=== PATIENT | male | born 1960 | race Caucasian/White ===

== ENCOUNTER → 2016-08-11 | Outpatient (CLI) | payer BC, OTHER ==
[~2016-08-11] MED LIST: AMOX500C PO; CARI350T20 PO; HYDR25T PO; NAPR500T2 PO; OMEP20CA3 PO; SUCR1TA PO; VIAG100T PO; ZOLP12.515 PO
[2016-08-11 12:56] LABS: MEAN CORPUSCULAR HEMOGLOBIN 27.6 pg (27.0-33.0); MEAN CORPUSCULAR HGB CONC 33.9 g/dl (32.0-36.5); MEAN CORPUSCULAR VOLUME 81.5 fl (80.0-96.0); RED CELL DISTRIBUTION WIDTH 15.3 % (11.5-14.5)
[2016-08-11 13:59] LABS: ALBUMIN 4.1 GM/DL (3.2-5.2); ALBUMIN/GLOBULIN RATIO 1.28 (1.00-1.93); ALKALINE PHOSPHATASE 100 U/L (45-117); ALT/SGPT 36 U/L (12-78); ANION GAP 9 MEQ/L (8-16); AST/SGOT 24 U/L (15-37); BILIRUBIN,TOTAL 0.3 MG/DL (0.2-1.0); BLOOD UREA NITROGEN 19 MG/DL (7-18); CALCIUM LEVEL 8.5 MG/DL (8.5-10.1); CARBON DIOXIDE LEVEL 27 MEQ/L (21-32); CHLORIDE LEVEL 106 MEQ/L (98-107); CHOLESTEROL LEVEL 342 MG/DL (<200); CREATININE FOR GFR 1.19 MG/DL (0.70-1.30); GLOMERULAR FILTRATION RATE > 60.0 (>56); GLUCOSE, FASTING 93 MG/DL (70-105); POTASSIUM SERUM 4.1 MEQ/L (3.5-5.1); SODIUM LEVEL 142 MEQ/L (136-145); TOTAL PROTEIN 7.3 GM/DL (6.4-8.2); TRIGLYCERIDES LEVEL 309 MG/DL (<150)
== END ==
LOC: M LAB 12:24
PROVIDERS: ATTEND Family Medicine
DX: I10 Essential (primary) hypertension (principal); D64.9 Anemia, unspecified; R53.83 Other fatigue

== ENCOUNTER 2016-11-01 18:43 | Emergency (ER) | payer BC, OTHER ==
[~2016-11-01] VITALS: Ht 177.8 cm; Wt 77.1 kg
[2016-11-01] MEDS ORDERED: CIPR500T3 (18:54)
[2016-11-01] MEDS ORDERED: PERCOCET 5MG/325MG TAB PO ONE ×2 (19:15→20:15)
--- NOTE | 2016-11-01 20:09 | REP ---
Clinical: Trauma. Technique: Axial noncontrast images through the maxillofacial region with coronal and sagittal re-formations. Findings: There is a depressed comminuted fracture involving the right zygomatic arch with overlying soft tissue traumatic infiltration. There is a subtle nondisplaced vertical fracture through the left mandibular ramus best identified on sagittal series 207 image 14 and confirmed on axial images. Subtle bilateral nasal bone fractures are appreciated and of indeterminate age. The sinuses and mastoid air cells are well aerated and clear. Despite the subtle nondisplaced fracture involving the left mandibular ramus, the temporomandibular joints are symmetric and intact. The remainder of the osseous structures appear normal. The bilateral orbits including globes and intraconal contents are symmetric and normal. Impression: 1. Depressed comminuted fracture of the right zygomatic arch as well as subtle, linear nondisplaced fracture involving the left mandibular ramus. 2. Fractures of the bilateral nasal bones are of indeterminate age and require correlation. Signed by Rafael Head MD 11/01/2016 08:00 P
[2016-11-01] MEDS ORDERED: PERC5TAB6 PO (20:10)
[2016-11-01 20:15] VITALS: BP 129/82
== END 2016-11-01 20:10 | disposition home or self-care (01) ==
LOC: M ED 19:36
DX: S02.40EA Zygomatic fracture, right side, initial encounter for closed fracture (principal); S02.2XXA Fracture of nasal bones, initial encounter for closed fracture; S02.609A Fracture of mandible, unspecified, initial encounter for closed fracture; W22.8XXA Striking against or struck by other objects, initial encounter; Y92.59 Other trade areas as the place of occurrence of the external cause; Y93.89 Activity, other specified; Y99.0 Civilian activity done for income or pay; Z79.899 Other long term (current) drug therapy; Z88.1 Allergy status to other antibiotic agents

== ENCOUNTER 2016-11-05 16:55 | Emergency (ER) | payer BC, OTHER ==
[~2016-11-05] VITALS: Ht 177.8 cm; Wt 79.4 kg
[2016-11-05 16:55] VITALS: BP 114/97
[~2016-11-05 16:55] MED LIST changes: +CIPR500T3; +PERC5TAB6 PO
== END 2016-11-05 17:20 | disposition left against medical advice (07) ==
LOC: M ED 17:16
DX: Z53.21 Procedure and treatment not carried out due to patient leaving prior to being seen by health care provider (principal)

== ENCOUNTER → 2016-12-04 | Outpatient (CLI) | payer BC, OTHER | LOC: M LAB 10:56 | PROVIDERS: ATTEND Family Medicine | DX: E29.1 Testicular hypofunction (principal) ==

== ENCOUNTER 2017-02-16 21:22 | Emergency (ER) | payer BC, OTHER ==
[~2017-02-16 21:22] MED LIST changes: +CARI350T PO; -CARI350T20 PO; +HYDR-3363 PO; -HYDR25T PO; -NAPR500T2 PO; +NAPR500T3 PO; +PERC5TAB12 PO; -PERC5TAB6 PO
[2017-02-16 21:30] VITALS: BP 145/72
== END 2017-02-16 22:13 | disposition home or self-care (01) ==
LOC: M ED 21:22
DX: F10.129 Alcohol abuse with intoxication, unspecified (principal)

== ENCOUNTER → 2017-08-21 | Outpatient (CLI) | payer BC, OTHER ==
[2017-08-21 12:58] LABS: HEMATOCRIT 46.7 % (42.0-52.0); MEAN CORPUSCULAR HEMOGLOBIN 27.5 pg (27.0-33.0); MEAN CORPUSCULAR HGB CONC 32.1 g/dl (32.0-36.5); MEAN CORPUSCULAR VOLUME 85.5 fl (80.0-96.0); PLATELET COUNT, AUTOMATED 271 10^3/uL (150-450); RED BLOOD COUNT 5.46 10^6/uL (4.30-6.10); RED CELL DISTRIBUTION WIDTH 14.8 % (11.5-14.5)
[2017-08-21 13:35] LABS: TESTOSTERONE 369 NG/DL (241-827)
[2017-08-21 13:36] LABS: VITAMIN B12 LEVEL 505 PG/ML (247-911)
[2017-08-21 13:38] LABS: ESTIMATED AVERAGE GLUCOSE 120 MG/DL (60-110); HEMOGLOBIN A1c 5.8 %
[2017-08-21 13:43] LABS: ALBUMIN 4.4 GM/DL (3.2-5.2); ALBUMIN/GLOBULIN RATIO 1.26 (1.00-1.93); ALKALINE PHOSPHATASE 88 U/L (45-117); ALT/SGPT 34 U/L (12-78); ANION GAP 11 MEQ/L (8-16); AST/SGOT 32 U/L (7-37); BILIRUBIN,TOTAL 0.4 MG/DL (0.2-1.0); BLOOD UREA NITROGEN 19 MG/DL (7-18); CALCIUM LEVEL 8.8 MG/DL (8.5-10.1); CARBON DIOXIDE LEVEL 24 MEQ/L (21-32); CHLORIDE LEVEL 107 MEQ/L (98-107); CHOLESTEROL LEVEL 366 MG/DL (<200); CHOLESTEROL RISK RATIO 7.956 (<5); CREATININE FOR GFR 1.17 MG/DL (0.70-1.30); GLOMERULAR FILTRATION RATE > 60.0 (>56); GLUCOSE, FASTING 99 MG/DL (70-100); HDL CHOLESTEROL 46 MG/DL (>40); IRON (FE) 103 UG/DL (65-175); NON-HDL-C 320 MG/DL; PERCENT SATURATION 23.3 % (19.7-50.0); POTASSIUM SERUM 4.5 MEQ/L (3.5-5.1); PROSTATIC SPECIFIC AG MONITOR 1.02 NG/ML (< 4.0); SODIUM LEVEL 142 MEQ/L (136-145); TOTAL IRON BINDING CAPACITY 443 UG/DL (250-450); TOTAL PROTEIN 7.9 GM/DL (6.4-8.2); TRIGLYCERIDES LEVEL 533 MG/DL (<150)
== END ==
LOC: M LAB 12:34
DX: I10 Essential (primary) hypertension (principal)

== ENCOUNTER → 2017-08-24 | Outpatient (REF) | payer BC, OTHER | LOC: M LABNEURO 14:38 | DX: Z86.73 Personal history of transient ischemic attack (TIA), and cerebral infarction without residual deficits (principal) | CPT/HCPCS: 36415 ==

== ENCOUNTER → 2018-02-19 | Outpatient (CLI) | payer OTHER | LOC: M OUTALCOH 07:52 | DX: Z03.89 Encounter for observation for other suspected diseases and conditions ruled out (principal) ==

== ENCOUNTER 2018-03-11 15:12 | Outpatient (RCR) | payer OTHER | END 2018-03-14 | LOC: M OUTALCOH 15:12 | DX: Z03.89 Encounter for observation for other suspected diseases and conditions ruled out (principal) ==

== ENCOUNTER 2018-06-17 10:30 | Emergency (ER) | payer BC, OTHER ==
[~2018-06-17] VITALS: Ht 175.3 cm; Wt 90.9 kg
[~2018-06-17 10:30] MED LIST changes: +CARI1TAB7 PO; -CARI350T PO; +NAPR-885 PO; -NAPR500T3 PO
[2018-06-17] MEDS ORDERED: AMOX500T (10:50)
[2018-06-17] MEDS ORDERED: TRAM50TA2 (10:50)
[2018-06-17] MEDS ORDERED: SIMV20TA2 (10:50)
[2018-06-17] MEDS ORDERED: SERT-155 (10:50)
[2018-06-17] MEDS ORDERED: KETOROLAC 60 MG/2 ML VIAL (J1885) IM ONE (11:00)
[2018-06-17] MEDS ORDERED: NAPR-50 PO (12:37)
[2018-06-17 12:48] VITALS: BP 137/91
== END 2018-06-17 12:54 | disposition home or self-care (01) ==
LOC: M ED 10:30 → EDBD 10:30 → M ED 12:54
DX: S39.012A Strain of muscle, fascia and tendon of lower back, initial encounter (principal); W10.9XXA Fall (on) (from) unspecified stairs and steps, initial encounter; Y92.9 Unspecified place or not applicable; Y93.9 Activity, unspecified; Y99.9 Unspecified external cause status; K21.9 Gastro-esophageal reflux disease without esophagitis; E78.5 Hyperlipidemia, unspecified; F10.10 Alcohol abuse, uncomplicated; F19.10 Other psychoactive substance abuse, uncomplicated; Z72.0 Tobacco use; Z79.899 Other long term (current) drug therapy; Z88.1 Allergy status to other antibiotic agents
CPT/HCPCS: 96372; 99284; J1885

== ENCOUNTER 2018-12-18 18:16 | Emergency (ER) | payer BC, OTHER ==
[~2018-12-18] VITALS: Ht 177.8 cm; Wt 81.8 kg
[~2018-12-18 18:16] MED LIST changes: +AMOX500T; +BACT800T5 PO; +NAPR-837 PO; -OMEP20CA3 PO; +OMEP20CA4 PO; +SERT-155; +SIMV20TA2; +TRAM50TA2
[2018-12-18 19:33] VITALS: BP 130/79
== END 2018-12-18 19:35 | disposition home or self-care (01) ==
LOC: M ED 18:16
DX: Z48.89 Encounter for other specified surgical aftercare (principal); K21.9 Gastro-esophageal reflux disease without esophagitis; Z79.899 Other long term (current) drug therapy; Z88.1 Allergy status to other antibiotic agents

== ENCOUNTER 2019-05-20 04:55 | Inpatient (IN) | payer BC, OTHER ==
[~2019-05-20] VITALS: Ht 175.3 cm; Wt 80.0 kg
[~2019-05-20 04:55] MED LIST changes: +OMEP-172 PO; -OMEP20CA4 PO; -SERT-155; +SERT50TA29; -SIMV20TA2; +SIMV20TA22
[2019-05-20] MEDS ORDERED: TRAZ-163 PO (05:23)
[2019-05-20] MEDS ORDERED: SILD100T PO (05:23)
[2019-05-20] MEDS ORDERED: HYDR-3363 PO (05:23)
[2019-05-20] MEDS ORDERED: SUCR1TAB56 PO (05:23)
--- NOTE | 2019-05-20 05:52 | ECGEPIP ---
[facility] - ED Test Date: 2019-05-20 Pat Name: JOY MARTELL Department: Room: - Gender: Male Skid Wrapper: : 1960 Requested By: ASH Corona Order Number: [id number] Reading MD: Willian Mckeon Measurements Intervals [place] Rate: 110 P: 39 RI: 158 QRS: -21 QRSD: 100 T: 33 QT: 268 QTc: 364 Interpretive Statements SINUS TACHYCARDIA BORDERLINE LEFT AXIS DEVIATION NONSPECIFIC T-WAVE ABNORMALITY RATE CHANGE COMPARED TO 08/21/17 Electronically Signed on 05-20-2019 5:52:30 EST by Willian Mckeon
[2019-05-20 05:54] LABS: BASO # 0.1 10^3/uL (0.0-0.2); BASO % 0.5 % (0.0-1.0); EOS % 0.3 % (0.0-3.0); HEMATOCRIT 42.8 % (42.0-52.0); HEMOGLOBIN 13.3 g/dl (13.5-17.5); LYMPH # 1.2 10^3/uL (1.5-5.0); LYMPH % 10.6 % (24.0-44.0); MEAN CORPUSCULAR HEMOGLOBIN 24.3 pg (27.0-33.0); MEAN CORPUSCULAR HGB CONC 31.1 g/dl (32.0-36.5); MEAN CORPUSCULAR VOLUME 78.1 fl (80.0-96.0); MONO # 0.7 10^3/uL (0.0-0.8); MONO % 6.3 % (0.0-5.0); NEUTROPHILS # 9.4 10^3/uL (1.5-8.5); NEUTROPHILS % 81.4 % (36.0-66.0); PLATELET COUNT, AUTOMATED 253 10^3/uL (150-450); RED BLOOD COUNT 5.48 10^6/uL (4.30-6.10); WHITE BLOOD COUNT 11.5 10^3/uL (4.0-10.0)
[2019-05-20 06:36] LABS: ALBUMIN 4.5 GM/DL (3.2-5.2); ALT/SGPT 26 U/L (12-78); BILIRUBIN,DIRECT 0.2 MG/DL (0.0-0.2); BILIRUBIN,TOTAL 0.6 MG/DL (0.2-1.0); BLOOD UREA NITROGEN 30 MG/DL (7-18); CALCIUM LEVEL 8.7 MG/DL (8.5-10.1); CARBON DIOXIDE LEVEL 18 MEQ/L (21-32); CHLORIDE LEVEL 107 MEQ/L (98-107); CK-MB VALUE MASS 11.1 NG/ML (<3.6); CPK CREATINE PHOSPHOKINASE 2045 U/L (39-308); GLOMERULAR FILTRATION RATE 38.8 (>56); GLUCOSE, FASTING 88 MG/DL (70-100); MB/CK RELATIVE INDEX 0.54 (< OR =4); POTASSIUM SERUM 3.2 MEQ/L (3.5-5.1); SODIUM LEVEL 140 MEQ/L (136-145); TOTAL PROTEIN 7.8 GM/DL (6.4-8.2); TROPONIN I < 0.02 NG/ML (< 0.10)
--- NOTE | 2019-05-20 06:50 | REPVR ---
PROCEDURE INFORMATION: Exam: CT Head Without Contrast Exam date and time: 05/20/2019 6:21 AM Age: 58 years old Clinical history: Altered mental status/memory loss TECHNIQUE: Imaging protocol: Computed tomography of the head without contrast. Radiation optimization: All CT scans at this facility use at least one of these dose optimization techniques: automated exposure control; mA and/or kV adjustment per patient size (includes targeted exams where dose is matched to clinical indication); or iterative reconstruction. COMPARISON: No relevant prior studies available. FINDINGS: Brain: There is mild, diffuse parenchymal volume loss. There is more prominent regional parenchymal volume loss in the right frontal lobe. There is low attenuation likely due to a previous infarct in the right caudate and internal capsule. There is low attenuation in the periventricular white matter in the right frontal lobe. There is focal parenchymal volume loss and low attenuation consistent with encephalomalacia in the anterior left frontal lobe. The cortical/white matter interfaces are preserved throughout the brain. Ventricles: The ventricular system demonstrates mild diffuse compensatory enlargement. There is asymmetric enlargement of the anterior horn and body of the right lateral ventricle consistent with ex vacuo dilation. Bones/joints: No acute fractures of the skull are identified. Hyperostosis frontalis is incidentally noted. Sinuses: The visualized paranasal sinuses are clear. Mastoid air cells: There is a trace of fluid in the right mastoid air cells. Left mastoid air cells are clear. Soft tissues: Unremarkable. IMPRESSION: 1. 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 2. Smaller area of encephalomalacia in the anterior left frontal lobe which may be related to prior infarct or injury. 3. No evidence of acute infarct or hemorrhage. Electronically signed by: Penny Bah On 05/20/2019 06:49:43 AM
[2019-05-20] MEDS ORDERED: NS 1,000 ML IV SCH (06:51)
[2019-05-20] MEDS ORDERED: BAYE325T12 PO (07:19)
[2019-05-20 07:43] LABS: ETHYL ALCOHOL (ETHANOL) < 0.003 % (0.000-0.010)
--- NOTE | 2019-05-20 08:33 | REP ---
Two-view chest: 05/20/2019. Indication: Altered mental status. Comparison: 08/21/2017. Findings: The lungs are clear. There is no pleural effusion or pneumothorax. Chronic right rib deformities are redemonstrated. The cardiomediastinal silhouette is unremarkable. Impression: No acute cardiopulmonary process. Electronically Signed by Herb Corey DO 05/20/2019 08:24 A
[2019-05-20 09:15] VITALS: BP 131/86
[2019-05-20] MEDS: HEPARIN SOD (PORCINE) 5000 UNITS/ML VIAL SC SCH ×3 (10:39→23:25)
[2019-05-20] MEDS: SUCRALFATE 1 GM TAB PO SCH ×2 (10:40→15:34)
[2019-05-20] MEDS: hydrOXYzine 25 MG TAB PO SCH ×2 (10:41→21:52)
[2019-05-20] MEDS: OMEPRAZOLE 20 MG CAP PO SCH ×2 (10:41→21:53)
[2019-05-20] MEDS: NS 1,000 ML IV SCH ×5 (10:41→23:57)
[2019-05-20] MEDS: POTASSIUM CHLORIDE 10 MEQ SR TABLET PO SCH (10:41)
[2019-05-20 15:27] VITALS: BP 138/89
[2019-05-20] MEDS ORDERED: LORazepam 2 MG TAB PO PRN (15:30)
[2019-05-20] MEDS: OXAZEPAM 10 MG CAP PO SCH ×2 (15:34→21:53)
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
[2019-05-20] MEDS: THIAMINE 100 MG TAB PO SCH (17:12)
[2019-05-20 17:20] LABS: MAGNESIUM LEVEL 1.8 MG/DL (1.8-2.4)
[2019-05-20 19:30] VITALS: BP 145/79
[2019-05-20 21:00] VITALS: BP 145/79
[2019-05-20 22:00] VITALS: BP 145/79
[2019-05-21 04:00] VITALS: BP 110/78
[2019-05-21] MEDS: OXAZEPAM 10 MG CAP PO SCH (05:55)
[2019-05-21 06:00] VITALS: BP 145/79
[2019-05-21 06:02] LABS: HEMATOCRIT 38.2 % (42.0-52.0); HEMOGLOBIN 11.5 g/dl (13.5-17.5); MEAN CORPUSCULAR HEMOGLOBIN 24.1 pg (27.0-33.0); MEAN CORPUSCULAR HGB CONC 30.1 g/dl (32.0-36.5); MEAN CORPUSCULAR VOLUME 80.1 fl (80.0-96.0); PLATELET COUNT, AUTOMATED 204 10^3/uL (150-450); RED BLOOD COUNT 4.77 10^6/uL (4.30-6.10); WHITE BLOOD COUNT 4.6 10^3/uL (4.0-10.0)
[2019-05-21 06:14] LABS: INR 1.12; PROTHROMBIN TIME 14.1 SECONDS (11.8-14.0)
[2019-05-21 06:24] LABS: BLOOD UREA NITROGEN 19 MG/DL (7-18); CARBON DIOXIDE LEVEL 23 MEQ/L (21-32); CHLORIDE LEVEL 115 MEQ/L (98-107); GLOMERULAR FILTRATION RATE > 60.0 (>56); GLUCOSE, FASTING 99 MG/DL (70-100); POTASSIUM SERUM 3.8 MEQ/L (3.5-5.1); SODIUM LEVEL 144 MEQ/L (136-145)
[2019-05-21 07:21] LABS: CPK CREATINE PHOSPHOKINASE 945 U/L (39-308)
[2019-05-21 08:00] VITALS: BP 145/79
[2019-05-21] MEDS: hydrOXYzine 25 MG TAB PO SCH ×2 (09:46→20:48)
[2019-05-21] MEDS: NS 1,000 ML IV SCH (09:46)
[2019-05-21] MEDS: MULTIVITAMINS/MINERALS THERAP 1 TAB PO SCH (09:46)
[2019-05-21] MEDS: POTASSIUM CHLORIDE 10 MEQ SR TABLET PO SCH (09:46)
[2019-05-21] MEDS: SUCRALFATE 1 GM TAB PO SCH ×3 (09:46→17:09)
[2019-05-21] MEDS: THIAMINE 100 MG TAB PO SCH ×2 (09:46→20:48)
[2019-05-21] MEDS: OMEPRAZOLE 20 MG CAP PO SCH ×2 (09:47→20:48)
[2019-05-21] MEDS: FOLIC ACID 1 MG TAB PO SCH (09:47)
[2019-05-21] MEDS: HEPARIN SOD (PORCINE) 5000 UNITS/ML VIAL SC SCH ×2 (09:47→17:09)
[2019-05-21 14:00] VITALS: BP_SYST 114; BP_SYST 138; BP_DIAS 61; BP_DIAS 94
[2019-05-21] MEDS: ACETAMINOPHEN TAB 650MG DOSE (2X325MG) PO PRN ×2 (17:09→20:48)
[2019-05-21] MEDS ORDERED: OXAZEPAM 10 MG CAP PO SCH (18:00)
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
[2019-05-21 22:00] VITALS: BP_SYST 135; BP_SYST 158; BP_DIAS 88; BP_DIAS 90
[2019-05-22] MEDS: HEPARIN SOD (PORCINE) 5000 UNITS/ML VIAL SC SCH ×4 (00:34→23:33)
[2019-05-22 06:00] VITALS: BP 132/91
[2019-05-22] MEDS: SUCRALFATE 1 GM TAB PO SCH ×3 (07:38→16:19)
[2019-05-22] MEDS: FOLIC ACID 1 MG TAB PO SCH (09:04)
[2019-05-22] MEDS: OMEPRAZOLE 20 MG CAP PO SCH ×2 (09:05→21:17)
[2019-05-22] MEDS: hydrOXYzine 25 MG TAB PO SCH ×2 (09:05→21:17)
[2019-05-22] MEDS: POTASSIUM CHLORIDE 10 MEQ SR TABLET PO SCH (09:05)
[2019-05-22] MEDS: MULTIVITAMINS/MINERALS THERAP 1 TAB PO SCH (09:05)
[2019-05-22] MEDS: THIAMINE 100 MG TAB PO SCH ×2 (09:05→21:17)
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
[2019-05-22 14:00] VITALS: BP 157/89
[2019-05-22 22:00] VITALS: BP 151/88
[2019-05-22] MEDS: traZODone 50 MG TAB PO PRN (23:33)
[2019-05-23 06:00] VITALS: BP 143/90
[2019-05-23] MEDS: SUCRALFATE 1 GM TAB PO SCH ×3 (06:59→16:15)
[2019-05-23] MEDS: HEPARIN SOD (PORCINE) 5000 UNITS/ML VIAL SC SCH ×3 (06:59→22:46)
[2019-05-23] MEDS: OMEPRAZOLE 20 MG CAP PO SCH ×2 (09:04→21:47)
[2019-05-23] MEDS: POTASSIUM CHLORIDE 10 MEQ SR TABLET PO SCH (09:05)
[2019-05-23] MEDS: MULTIVITAMINS/MINERALS THERAP 1 TAB PO SCH (09:05)
[2019-05-23] MEDS: THIAMINE 100 MG TAB PO SCH (09:05)
[2019-05-23] MEDS: FOLIC ACID 1 MG TAB PO SCH (09:05)
[2019-05-23] MEDS: hydrOXYzine 25 MG TAB PO SCH ×2 (09:05→21:47)
--- NOTE | 2019-05-23 11:55 | REP ---
Pelvis bilateral hip study: Five views. History: Right hip pain with limping. Findings: AP view of the pelvis demonstrate an intact bony pelvic ring. No pelvic or sacral fracture is seen. SI joints and symphysis pubis are unremarkable. Hip joint spaces are preserved. There is mild sclerosis involving the acetabular margins bilaterally consistent with early osteoarthritis. There is periarticular soft-tissue calcification adjacent to the greater trochanter on the right. There is tendon insertion site spurring at the iliac crest on the right. Mild spurring is noted at the left hip joint. No fracture is seen. No bony destructive lesion. Impression: Peritrochanteric soft tissue calcification and tendon insertion site spurring at the iliac crest on the right side. Mild bilateral hip joint osteoarthritic spurring. No acute bony abnormality. Electronically Signed by Moise Monique MD 05/23/2019 12:17 P
[2019-05-23 13:07] LABS: VITAMIN B12 LEVEL 227 PG/ML (247-911)
[2019-05-23] MEDS ORDERED: CYAN100050 PO (13:57)
[2019-05-23 14:00] VITALS: BP 143/75
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
[2019-05-23] MEDS ORDERED: RAMELTEON 8 MG TAB (ROZEREM) PO SCH (21:00)
[2019-05-23] MEDS: traZODone 50 MG TAB PO PRN (21:49)
[2019-05-23 22:00] VITALS: BP_SYST 140; BP_SYST 80; BP_DIAS 140; BP_DIAS 78
[2019-05-24 06:00] VITALS: BP 137/76
[2019-05-24] MEDS: SUCRALFATE 1 GM TAB PO SCH (08:12)
[2019-05-24] MEDS: hydrOXYzine 25 MG TAB PO SCH (08:12)
[2019-05-24] MEDS: FOLIC ACID 1 MG TAB PO SCH (08:12)
[2019-05-24] MEDS: POTASSIUM CHLORIDE 10 MEQ SR TABLET PO SCH (08:13)
[2019-05-24] MEDS: MULTIVITAMINS/MINERALS THERAP 1 TAB PO SCH (08:13)
[2019-05-24] MEDS: OMEPRAZOLE 20 MG CAP PO SCH (08:13)
[2019-05-24] MEDS: HEPARIN SOD (PORCINE) 5000 UNITS/ML VIAL SC SCH (08:13)
--- NOTE | 2019-05-24 14:56 | DSES ---
DATE OF ADMISSION: 05/20/2019 DATE OF DISCHARGE: 05/24/2019 SOFTWARE BUSINESS ANALYST: Dr. Andrzej Varela, neurologist. PRIMARY DISCHARGE DIAGNOSES: 1. Acute encephalopathy and delirium in the background of traumatic brain injury. 2. B12 deficiency. 3. Chronic cognitive problems secondary to traumatic brain injury. 4. Gait instability. 5. Acute kidney injury secondary to rhabdomyolysis from a fall. 6. Hypokalemia. DISCHARGE MEDICATIONS: - B12 1000 mcg daily - aspirin 325 mg daily - hydroxyzine 25 twice a day - Prilosec 20 twice a day - Carafate 1 gram every morning - trazodone 200 nightly - sudanophil 100 as directed. HOSPITAL COURSE: This is a 58-year-old male who presented to the emergency room with confusion. Was seen walking the streets with no shoes, swimming truck and a fleece jacket looking for his dog, Isidro. Police was called. Patient was brought in to the emergency room for further evaluation. Patient was admitted for acute kidney injury, rhabdomyolysis and acute delirium in the background of traumatic brain injury. Neurologist Dr. Andrzej Varela was consulted and felt that the patient had transient global amnesia or acute delirium due to fall and injury. Patient denies any alcohol use confirmed with history with the social economist at [facility]. He has never drank alcohol or has had any recreational drug use. CT of the head showed a low attentuation in the right caudate internal capsule with no evidence for acute infarct or hemorrhage. Patient has areas of encephalomalacia and old infarct with possible chronic memory issues. Patient's mentation cleared up over the course of hospitalization. He was started on B12 replacement treatment. Hip x-rays due to fall showed bilateral osteoarthritis and right chronic trochanteric calcifications. As per his history, patient has trouble managing his money and people take advantage of him but sister will become involved in his outpatient care. Per physical therapy, a rolling walker is given due to gait instability and recurrent falls. Patient has resolution of his rhabdomyolysis with IV fluid hydration. PHYSICAL EXAMINATION: On discharge. Temperature 98.2, pulse 73, respiratory rate 19, blood pressure 137/79, 92% on room air. Generally, awake, alert, oriented to person and placed and time. Answering questions appropriately. Neck is supple with full range of motion. No cervical lymphadenopathy. Moist mucous membranes. Lungs are clear to auscultation. No wheezing, rales or rhonchi. Heart: S1, S2 sinus rhythm. Abdomen is soft, nontender. Nondistended. No pitting edema. Extremities: No cyanosis or clubbing. Neurologically awake, alert, oriented to person, place and time. Patient has fluent speech. Muscles are intact. Tongue midline. Motor function is 5/5 on four extremities. Normal [id number] testing. LABORATORY DATA: White count 4.6, hemoglobin 11.5, hematocrit 38, platelet count 204. Sodium 144, potassium 3.8, chloride 150, bicarbonate 23, BUN 19, creatinine 1.1, glucose 99, total CK 522, decreased from 2045 on admission. IMAGING STUDIES: CT of the head 05/20/2019: Low attentuation right caudate internal capsule. Regional volume loss low attenuation in the right matter right frontal lobe most likely due to an old infarct. No evidence of acute infarct or hemorrhage. Time spent on discharge: 30 minutes. [facility]
== END 2019-05-24 11:52 | disposition home or self-care (01) | DRG 52 ==
LOC: M ED 04:55 → M ED INP 07:12 → M MSPAV 09:17
PROVIDERS: ADMIT Internal Medicine; ATTEND General Practice
DX: G93.41 Metabolic encephalopathy (principal); N17.9 Acute kidney failure, unspecified; M62.82 Rhabdomyolysis; E55.9 Vitamin D deficiency, unspecified; E53.8 Deficiency of other specified B group vitamins; Z87.820 Personal history of traumatic brain injury; R26.9 Unspecified abnormalities of gait and mobility; E87.6 Hypokalemia; R29.6 Repeated falls; M16.0 Bilateral primary osteoarthritis of hip; R41.82 Altered mental status, unspecified; Z88.1 Allergy status to other antibiotic agents; Z79.82 Long term (current) use of aspirin; Z79.899 Other long term (current) drug therapy

== ENCOUNTER → 2019-08-17 | Outpatient (CLI) | payer BC, OTHER ==
[~2019-08-17] MED LIST changes: +BAYE325T12 PO; +CYAN100050 PO; -OMEP-172 PO; +OMEP1CAP73 PO; +SILD100T PO; +SUCR1TAB56 PO; +TRAZ-257 PO
[2019-08-17 11:19] LABS: HEMATOCRIT 43.4 % (42.0-52.0); HEMOGLOBIN 13.9 g/dl (13.5-17.5); MEAN CORPUSCULAR HEMOGLOBIN 25.6 pg (27.0-33.0); MEAN CORPUSCULAR VOLUME 79.8 fl (80.0-96.0); PLATELET COUNT, AUTOMATED 308 10^3/uL (150-450); RED BLOOD COUNT 5.44 10^6/uL (4.30-6.10); WHITE BLOOD COUNT 6.9 10^3/uL (4.0-10.0)
--- NOTE | 2019-08-17 11:57 | REP ---
CHEST, TWO VIEWS: Two views of the chest are performed. COMPARISON: 05/20/2019 There is no acute infiltrate or pulmonary edema. Heart is normal in size. Mediastinal silhouette is unremarkable and unchanged. Old compression deformity of L1 is unchanged. IMPRESSION: No acute pulmonary disease. Electronically Signed by Festus Jones MD 08/17/2019 04:08 P
[2019-08-17 12:00] LABS: ALBUMIN 4.5 GM/DL (3.2-5.2); ALT/SGPT 25 U/L (12-78); BILIRUBIN,TOTAL 0.4 MG/DL (0.2-1.0); BLOOD UREA NITROGEN 13 MG/DL (7-18); CALCIUM LEVEL 8.8 MG/DL (8.5-10.1); CARBON DIOXIDE LEVEL 25 MEQ/L (21-32); CHLORIDE LEVEL 106 MEQ/L (98-107); CHOLESTEROL LEVEL 323 MG/DL (<200); CHOLESTEROL RISK RATIO 11.962 (<5); CREATININE FOR GFR 1.53 MG/DL (0.70-1.30); GLOMERULAR FILTRATION RATE 49.8 (>56); GLUCOSE, FASTING 97 MG/DL (70-100); HDL CHOLESTEROL 27 MG/DL (>40); NON-HDL-C 296 MG/DL; POTASSIUM SERUM 3.8 MEQ/L (3.5-5.1); PROSTATIC SPECIFIC AG MONITOR 1.42 NG/ML (< 4.00); SODIUM LEVEL 138 MEQ/L (136-145); TESTOSTERONE 343 NG/DL (241-827); TOTAL PROTEIN 8.1 GM/DL (6.4-8.2); TRIGLYCERIDES LEVEL 665 MG/DL (<150)
--- NOTE | 2019-08-19 14:35 | ECGEPIP ---
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
== END ==
LOC: M LAB 10:12
PROVIDERS: ATTEND Family Medicine
DX: R53.83 Other fatigue (principal); I10 Essential (primary) hypertension

== ENCOUNTER 2019-12-19 20:11 | Emergency (ER) | payer BC, OTHER ==
[~2019-12-19] VITALS: Ht 177.8 cm; Wt 84.5 kg
[~2019-12-19 20:11] MED LIST changes: -ZOLP12.515 PO; +ZOLP12.518 PO
[2019-12-19] MEDS ORDERED: MAGIC MOUTHWASH SUSPENSION BTL SS STA (21:39)
[2019-12-19 22:07] LABS: BASO # 0.1 10^3/uL (0.0-0.2); BASO % 0.7 % (0.0-1.0); EOS # 0.2 10^3/uL (0.0-0.5); EOS % 1.8 % (0.0-3.0); HEMATOCRIT 44.1 % (42.0-52.0); HEMOGLOBIN 13.5 g/dl (13.5-17.5); LYMPH % 19.8 % (24.0-44.0); MEAN CORPUSCULAR HEMOGLOBIN 25.6 pg (27.0-33.0); MEAN CORPUSCULAR HGB CONC 30.6 g/dl (32.0-36.5); MEAN CORPUSCULAR VOLUME 83.5 fl (80.0-96.0); MONO # 0.6 10^3/uL (0.0-0.8); MONO % 6.3 % (0.0-5.0); NEUTROPHILS # 7.2 10^3/uL (1.5-8.5); NEUTROPHILS % 70.9 % (36.0-66.0); PLATELET COUNT, AUTOMATED 334 10^3/uL (150-450); RED BLOOD COUNT 5.28 10^6/uL (4.30-6.10); WHITE BLOOD COUNT 10.2 10^3/uL (4.0-10.0)
[2019-12-19] MEDS ORDERED: ISOVUE-370 76% 100ML VIAL As Ordered ONE (22:12)
--- NOTE | 2019-12-19 23:15 | REPVR ---
PROCEDURE INFORMATION: Exam: CT Neck With Contrast Exam date and time: 12/19/2019 10:40 PM Age: 59 years old Clinical indication: Neck pain; Additional info: R tonsillitis, dysphagia x 7 wks TECHNIQUE: Imaging protocol: Computed tomography images of the neck with intravenous contrast. Radiation optimization: All CT scans at this facility use at least one of these dose optimization techniques: automated exposure control; mA and/or kV adjustment per patient size (includes targeted exams where dose is matched to clinical indication); or iterative reconstruction. Contrast material: ISOVUE 370; Contrast volume: 75 ml; Contrast route: INTRAVENOUS (IV); COMPARISON: SR - CT Maxilofacial w/out contrast 11/01/2016 7:39:24 PM FINDINGS: Brain: There are non-specific foci of low attenuation in the periventricular white matter, which are likely the sequela of chronic small vessel ischemic injury and are similar in appearance compared to the prior CT on 11/01/2016. Ventricles: The ventricles are moderately dilated in proportion to the sulci, which is compatible with moderate generalized cerebral volume loss that is similar in appearance compared to the prior CT on 11/01/2016. Orbits: The globes and orbits are intact and normal in appearance. Mastoid air cells: Clear. Auditory system: There is a soft tissue opacity in the right external auditory canal, which likely represents cerumen. The middle ear spaces are clear. Sinuses: The sinuses are well-aerated. No air-fluid levels. Nasal cavity: Unremarkable. Nasopharynx: Unremarkable. Oral Cavity: Unremarkable. Dental: Several teeth are missing. There are dental caries involving the left lower 2nd and 3rd molars, left lower 1st premolar, and right lower 2nd premolar. Oropharynx: There is asymmetric enlargement and enhancement of the right palatine tonsil, which is compatible with right palatine tonsillitis. There are ill-defined areas of low attenuation within the right palatine tonsil, which are compatible with inflammatory changes. The left palatine tonsil is unremarkable. No or pharyngeal airway narrowing is noted. Hypopharynx: Unremarkable. Larynx: Unremarkable. Normal epiglottis. Retropharyngeal space: Unremarkable. No retropharyngeal fluid collection or edema. Submandibular/Parotid glands: Unremarkable. Glands are normal in size. Thyroid: There is a 5 mm heterogeneous nodule in the posterior aspect of the midpole of the left lobe of the thyroid gland (image 70 of the axial series 201) for which further evaluation is not necessary. No enlargement of the thyroid gland is noted. Lymph nodes: There is a 10 mm enlarged right level IIa cervical lymph node, which is likely reactive in nature. Trachea: Unremarkable. Lungs: The imaged lung apices are clear. The lungs were not fully imaged. Bones/joints: There is no acute fracture. There appears to be an old healed fracture deformity of the left mandibular ramus. There is an old healed fracture deformity of the right zygomatic arch. An old healed fracture deformity of the nasal bones is present. There is a 2 mm grade 1 anterolisthesis of C4 on C5 secondary to severe osteoarthritis of the right C4-C5 facet joint, which are similar findings compared to the prior CT on 11/01/2016. Degenerative changes are noted in the cervical spine. No bony destructive changes are noted. Vasculature: The vertebral arteries, common carotid arteries, internal carotid arteries, and external carotid arteries are patent and there is no dissection. The internal jugular veins are patent. There are atherosclerotic calcifications of the left carotid bulb. Soft tissues: Unremarkable. No soft tissue fluid collection. IMPRESSION: 1. Right palatine tonsillitis. No tonsillar or peritonsillar abscess. No airway narrowing. 2. Dental caries involving the left lower 2nd and 3rd molars, left lower 1st premolar, and right lower 2nd premolar. 3. Right level IIa cervical lymphadenopathy, which is likely reactive in nature. COMMENTS: Consistent with the [employer]'s Incidental Findings Committee white paper (J Am Mandy Radiol 2015): In patients aged 35 years and older with an incidental thyroid nodule equal to or greater than 1.[address], MRI or extrathyroidal US, further evaluation with dedicated thyroid US is recommended for patients with normal life expectancy and without comorbidities. For smaller nodules without suspicious features, no further evaluation or follow up is recommended. Electronically signed by: Moe Bray On 12/19/2019 23:14:45 PM
[2019-12-19 23:30] LABS: ERYTHROCYTE SEDIMENTATION RATE 46 mm/hr (0-20)
[2019-12-20] MEDS ORDERED: MAGICMW SSP (01:06)
[2019-12-20 01:35] VITALS: BP 136/86
== END 2019-12-20 01:37 | disposition home or self-care (01) ==
LOC: M ED 20:11
DX: J03.90 Acute tonsillitis, unspecified (principal); H61.21 Impacted cerumen, right ear; R59.1 Generalized enlarged lymph nodes; E78.5 Hyperlipidemia, unspecified; Z79.899 Other long term (current) drug therapy; Z79.82 Long term (current) use of aspirin; Z88.1 Allergy status to other antibiotic agents
CPT/HCPCS: 36415; 69210; 70491; 80047; 85025; 85652; 86140; 87880; 99284; Q9967

== ENCOUNTER 2020-01-29 01:41 | Emergency (ER) | payer BC, OTHER ==
[~2020-01-29 01:41] MED LIST changes: +MAGICMW SSP
[2020-01-29] MEDS ORDERED: AUGMENTIN 875 MG TAB As Ordered ONE (02:09)
[2020-01-29] MEDS ORDERED: AUGMENTIN 875 MG TAB ONE (02:09)
[2020-02-10] MEDS ORDERED: ACET1TAB16 (15:23)
[2020-02-10] MEDS ORDERED: AMOX500C PO (15:41)
[2020-03-30] MEDS ORDERED: ASPI81TA26 PO (08:51)
[2020-04-18] MEDS ORDERED: ONDA8TAB10 PO (10:03)
== END 2020-01-29 02:10 | disposition home or self-care (01) ==
LOC: M ED 01:41
DX: J02.9 Acute pharyngitis, unspecified (principal); Z79.899 Other long term (current) drug therapy

== ENCOUNTER → 2020-02-10 | Outpatient (CLI) | payer MEDICARE, BC, OTHER ==
[~2020-02-10] MED LIST changes: +ACET1TAB16; +ACET1TAB16 PO; +ASPI81TA26 PO; +DOXA2TAB3 PO; +PROC10TA4 PO; +SIMV20TA22 PO
[2020-02-10 13:37] LABS: HEMATOCRIT 36.6 % (42.0-52.0); HEMOGLOBIN 11.3 g/dl (13.5-17.5); MEAN CORPUSCULAR HEMOGLOBIN 24.2 pg (27.0-33.0); MEAN CORPUSCULAR HGB CONC 30.9 g/dl (32.0-36.5); MEAN CORPUSCULAR VOLUME 78.5 fl (80.0-96.0); PLATELET COUNT, AUTOMATED 404 10^3/uL (150-450); RED BLOOD COUNT 4.66 10^6/uL (4.30-6.10); WHITE BLOOD COUNT 11.1 10^3/uL (4.0-10.0)
[2020-02-10 13:48] LABS: INR 0.94; PROTHROMBIN TIME 12.8 SECONDS (11.8-14.0)
[2020-02-10 14:14] LABS: HEMOGLOBIN A1c 6.4 %
[2020-02-10 14:16] LABS: ALBUMIN 3.1 GM/DL (3.2-5.2); ALT/SGPT 19 U/L (12-78); BILIRUBIN,TOTAL 0.2 MG/DL (0.2-1.0); BLOOD UREA NITROGEN 14 MG/DL (7-18); CALCIUM LEVEL 9.4 MG/DL (8.8-10.2); CARBON DIOXIDE LEVEL 28 MEQ/L (21-32); CHLORIDE LEVEL 106 MEQ/L (98-107); CHOLESTEROL LEVEL 224 MG/DL (<200); CREATININE FOR GFR 1.08 MG/DL (0.70-1.30); GLOMERULAR FILTRATION RATE > 60.0 (>49); GLUCOSE, FASTING 102 MG/DL (70-100); HDL CHOLESTEROL 32 MG/DL (>40); LDL CHOLESTEROL 149 MG/DL (<100); NON-HDL-C 192 MG/DL; SODIUM LEVEL 140 MEQ/L (136-145); TESTOSTERONE 214 NG/DL (241-827); TRIGLYCERIDES LEVEL 213 MG/DL (<150)
--- NOTE | 2020-02-15 12:59 | REP ---
CHEST X-RAY: HISTORY: Preoperative assessment with history of COPD and hypertension. TECHNIQUE: PA and lateral COMPARISON: 08/17/19 FINDINGS: Mediastinum and cardiac silhouette are normal. Lung huitron are stable. Linear scarring in the left lower lobe noted. Old healed right rib fracture identified. No acute consolidation, effusion or pneumothorax. IMPRESSION: No acute cardiopulmonary process or focal consolidation appreciated. MTDD
--- NOTE | 2020-03-02 14:33 | ECGEPIP ---
[facility] Test Date: 2020-02-10 Pat Name: JOY MARTELL Department: Room: - Gender: Male Table Maker: ASHLYN : 1960 Requested By: Ivan Hill Order Number: [id number] Reading MD: Vera Barnett Measurements Intervals [place] Rate: 74 P: 41 IN: 167 QRS: 4 QRSD: 89 T: 33 QT: 402 QTc: 447 Interpretive Statements SINUS RHYTHM LAD SEE SCANNED DOWNTIME REPORT
== END ==
LOC: M LAB 12:44
PROVIDERS: ATTEND Family Medicine
DX: I10 Essential (primary) hypertension (principal); Z79.899 Other long term (current) drug therapy

== ENCOUNTER → 2020-02-15 | Outpatient (CLI) | payer BC, OTHER ==
[~2020-02-15] MED LIST changes: +ONDA8TAB10 PO
== END ==
LOC: M LABSMTC 09:38
PROVIDERS: ATTEND Anesthesiology
DX: Z01.812 Encounter for preprocedural laboratory examination (principal)
CPT/HCPCS: C9803; U0002

== ENCOUNTER 2020-02-16 07:11 | Day surgery (SDC) | payer MEDICARE, BC, OTHER ==
[~2020-02-16] VITALS: Ht 175.3 cm; Wt 82.0 kg
[~2020-02-16 07:11] MED LIST changes: -ACET1TAB16 PO; -ASPI81TA26 PO; -DOXA2TAB3 PO; +MIDAZOLAM INJ 2MG/2ML VIAL (J2250 PER 1MG) As Ordered ONE; -ONDA8TAB10 PO; -PROC10TA4 PO; -SIMV20TA22 PO
[2020-02-16] MEDS ORDERED: fentaNYL 100 MCG/2 ML INJECTION (J3010) As Ordered ONE (07:12)
[2020-02-16] MEDS ORDERED: LIDOCAINE 2% 100MG/5ML SDV (FOR ANES.) As Ordered ONE (07:14)
[2020-02-16] MEDS ORDERED: ROCURONIUM BROMIDE 50 MG/5 ML VIAL As Ordered ONE (07:14)
[2020-02-16] MEDS ORDERED: propofoL 200 MG/20 ML VIAL As Ordered ONE (07:15)
[2020-02-16] MEDS ORDERED: LR 1,000 ML IV ONE (07:15)
[2020-02-16] MEDS ORDERED: dexameTHASONE 4 MG/ML 1ML VIAL (J1100 PER 1MG) IV ONE (07:30)
[2020-02-16] MEDS ORDERED: dexameTHASONE 4 MG/ML 1ML VIAL (J1100 PER 1MG) As Ordered ONE (07:57)
[2020-02-16] MEDS ORDERED: OXYMETAZOLINE 0.05% NASAL SPRAY (AFRIN) As Ordered ONE (08:04)
[2020-02-16] MEDS ORDERED: EPINEPHrine 1MG/ML INJ 30ML MD-VIAL As Ordered ONE (08:35)
[2020-02-16] MEDS ORDERED: LIDOCAINE W/EPINEPHRINE 1% 20ML VIAL As Ordered ONE (08:35)
[2020-02-16] MEDS ORDERED: METHYLENE BLUE 0.5% (5MG/ML) 10 ML AMP (PROVAYBLUE) As Ordered ONE (08:36)
[2020-02-16] MEDS ORDERED: METOCLOPRAMIDE INJ 10MG/2ML VIAL (J2765 PER 1) As Ordered ONE (09:01)
[2020-02-16] MEDS ORDERED: ONDANSETRON 4MG/2ML VIAL As Ordered ONE (09:01)
[2020-02-16] MEDS ORDERED: ONDANSETRON 4MG/2ML VIAL IV PRN (10:00)
[2020-02-16] MEDS ORDERED: fentaNYL 100 MCG/2 ML INJECTION (J3010) IV PRN (10:00)
[2020-02-16] MEDS ORDERED: oxyCODONE 5MG TAB PO PRN (10:00)
[2020-02-16] MEDS ORDERED: LR 1,000 ML IV SCH ×2 (10:00)
[2020-02-16] MEDS ORDERED: SUGAMMADEX SODIUM 500 MG/5 ML VIAL (BRIDION) As Ordered ONE (10:40)
[2020-02-16 13:00] VITALS: BP 128/78
[2020-03-30] MEDS ORDERED: ASPI81TA26 PO (08:51)
[2020-04-18] MEDS ORDERED: ONDA8TAB10 PO (10:03)
== END 2020-02-16 14:00 | disposition home or self-care (01) ==
LOC: M SDC 07:11
PROVIDERS: ATTEND Otolaryngology
DX: C09.9 Malignant neoplasm of tonsil, unspecified (principal); Z88.1 Allergy status to other antibiotic agents; G47.09 Other insomnia; N40.0 Benign prostatic hyperplasia without lower urinary tract symptoms; Z79.899 Other long term (current) drug therapy; E78.5 Hyperlipidemia, unspecified; K21.9 Gastro-esophageal reflux disease without esophagitis
CPT/HCPCS: 42808; 88302; 88342; J1100; J2250; J2405; J2765; J3010; Q9968

== ENCOUNTER → 2020-03-20 | Outpatient (CLI) | payer BC, OTHER ==
[~2020-03-20] MED LIST changes: +ACET1TAB16 PO; +ASPI81TA26 PO; +DOXA2TAB3 PO; -MIDAZOLAM INJ 2MG/2ML VIAL (J2250 PER 1MG) As Ordered ONE; +PROC10TA4 PO; +SIMV20TA22 PO
--- NOTE | 2020-03-26 08:55 | REP ---
PET CT HISTORY: Staging squamous cell carcinoma of the right tonsil. COMPARISON: Soft tissue neck CT study from 12/19/2019. TECHNIQUE: 56 minutes following the intravenous injection of an 8.72 mCi dose of F18 fluorodeoxyglucose (FDG), three-dimensional PET scintigraphy and CT imaging is acquired from the skull base to the proximal thighs in the usual fashion. PET CT FINDINGS: There is a large transpatial mass in the right tonsillar fossa approximately 4.5 cm in diameter, which is markedly hypermetabolic. Maximum standard uptake value 23.21. There is hypermetabolic bilateral anterior cervical adenopathy. Maximum standard uptake value in a 1 cm anterior cervical node on the left is 5.19. There is a similar sized anterior cervical lymph node on the right with maximum standard uptake value 5.70. There is a hypermetabolic submental lymph node on the right 4.23 SUV. A second anterior cervical lymph node at the level of the hyoid has maximum standard uptake value of 5.73. There is a small right supraclavicular lymph node with maximum standard uptake value 4.53. Above the level of the mass extending up to the skull base, there is mildly hypermetabolic soft tissue fullness. Maximum standard uptake value in this asymmetric soft tissue fullness is up to 6.05. No bony destructive change is seen. This asymmetric lower level hypermetabolic uptake extends laterally to the condylar neck and posterior mandible. No abnormal hypermetabolic uptake is seen in the chest. No abnormal hypermetabolic uptake is seen in the abdomen or pelvis. IMPRESSION: Large right tonsillar and peritonsillar mass with hypermetabolic bilateral cervical lymphadenopathy and question superior extension towards the skull base. No other abnormal hypermetabolic uptake. MTDD
== END ==
LOC: M PLARAD 10:38
PROVIDERS: ATTEND Otolaryngology
DX: C09.9 Malignant neoplasm of tonsil, unspecified (principal)
CPT/HCPCS: 78815; A9552

== ENCOUNTER → 2020-03-22 | Outpatient (CLI) | payer MEDICARE, BC, OTHER ==
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
== END ==
LOC: M ONCR 10:01
PROVIDERS: ATTEND General Practice
DX: C09.0 Malignant neoplasm of tonsillar fossa (principal)

== ENCOUNTER → 2020-03-27 | Outpatient (POV) | payer MEDICARE, BC, OTHER ==
[~2020-03-27] MED LIST changes: +ONDA8TAB10 PO
--- NOTE | 2020-03-28 13:32 | IRCOV ---
[facility] IR Consult Office Visit IR Consult Office Visit DATE: Mar 27, 2020 Patient agreed to this telephone consultation. I spent 30 minutes reviewing patient's records, imaging and talking to the patient. REASON FOR CONSULTATION/CHIEF COMPLAINT: Head and neck cancer. Requires G-tube placement. HISTORY OF PRESENT ILLNESS: 59-year-old male with tonsillar cancer, initially presented with sore throat 3 months ago. Progressively over 3 months he's had difficulty swallowing and difficulty with speech. He has difficulty opening his mouth. He is currently on a liquid diet. He reports 20 pounds of weight loss. Patient has chemoradiation therapy planned and requires a G-tube to see him through therapy. No prior gastric surgery. No blood thinners. No problems with prior sedation. ALLERGIES: Please see below. HOME MEDICATIONS: Please see below. PAST MEDICAL HISTORY: TBI 1989 GERD Erectile dysfunction PAST SURGICAL HISTORY: Non- FAMILY HISTORY: Noncontributory SOCIAL HISTORY: Nonsmoker. Denies alcohol or drugs. REVIEW OF SYSTEMS: Otherwise negative. PHYSICAL EXAMINATION: No video on patient side. LABORATORY DATA: 02/10/2020 hemoglobin 11.3 hematocrit 30 6.6W BC 11.1 platelets 404 sodium 140 potassium 4.0 BUN 14 creatinine 1.08 GFR greater than 60 INR 0.9 Imaging: I personally reviewed the PET/CT dated March 2020. No hiatal hernia. The stomach is in a normal position. ASSESSMENT/PLAN: 59-year-old male with head and neck cancer planning to undergo chemoradiation therapy. I agree patient requires a G-tube. We discussed the risks and benefits of the procedure and patient is willing to proceed. We have scheduled the patient for G-tube placement. Thank you for this referral. Cc Dr. Martínez Allergies Coded Allergies: clindamycin (Verified Adverse Reaction, Unknown, rash, hives, 12/11/18) Home Medications Scheduled Omeprazole (Omeprazole), 20 MG PO BID, (Reported) Trazodone HCl (Trazodone HCl), 200 MG PO QHS, (Reported) Scheduled PRN Magic Mouthwash (First-Mouthwash Blm), 10 ML SSP QID PRN for MUCOSITIS Miscellaneous Medications Acetaminophen with Codeine (Acetaminophen-Cod #3 Tablet), (Reported) Discontinued Medications Amoxicillin (Amoxicillin), 500 MG PO QID, (Reported) Discontinued Reason: Pt states not taking Sildenafil Citrate (Sildenafil Citrate), 100 MG PO ASDIRECTED PRN for ERECTILE DYSFUNCTION, (Reported) Discontinued Reason: Pt states not taking JAZLYN RICE MD Mar 28, 2020 13:31
== END ==
LOC: M TMIRPOV 11:16
PROVIDERS: ATTEND Radiology Diagnostic Radiology
DX: C09.9 Malignant neoplasm of tonsil, unspecified (principal); R13.10 Dysphagia, unspecified; K21.9 Gastro-esophageal reflux disease without esophagitis; Z88.1 Allergy status to other antibiotic agents; Z79.899 Other long term (current) drug therapy

== ENCOUNTER → 2020-03-30 | Outpatient (CLI) | payer MEDICARE, BC, OTHER ==
[~2020-03-30] MED LIST changes: +ACETAMINOPHEN 325 MG TAB As Ordered ONE; +ACETAMINOPHEN TAB 650MG DOSE (2X325MG) PO ONE; +LIDOCAINE 1% MDV 20ML VIAL As Ordered ONE; +ceFAZolin 1GM VIAL (J0690 PER 500MG) As Ordered ONE; +fentaNYL 100 MCG/2 ML INJECTION (J3010) As Ordered ONE
--- NOTE | 2020-03-30 10:30 | POST-OPPD ---
Postoperative Procedure Note Date Of Procedure: Mar 30, 2020 Time Of Procedure: 10:29 IR Ultrasound and fluoroscopy-guided port placement. IR Ultrasound of the neck. Clinical information: Tonsil cancer. Physician: Dr. Dugan. Procedure: The patient was advised of the benefits, risks, and alternatives of the procedure and informed consent was obtained. A time-out was performed with verification of the patient's name, MRN, site of procedure and type of procedure to be performed. The patient was positioned in the supine position on the angiographic table. The site was prepped and draped in the usual sterile fashion. Moderate sedation was not appropriate for this patient. The physician spent 45 minutes of continuous face to face time with the patient. Ultrasound of the neck reveals a patent and compressible right internal jugular vein. A tassel maker radiograph reveals no gross abnormality. The neck and anterior chest wall were anesthetized with lidocaine. The right internal jugular vein was accessed using a microintroducer needle under ultrasound guidance, via a lateral approach. An 018 wire was advanced into the superior vena cava, the needle was removed and a microsheath was placed. An Amplatz wire was then passed into the inferior vena cava. An incision at the internal jugular vein access site and anterior chest wall were made using a scalpel. An incision was made at the anterior chest wall. A small pocket was created using a combination of blunt and sharp dissection. A tunneling device was then used to pass the catheter from the pocket to the neck puncture site. An 8- Portuguese Angio dynamics Smart power port was then positioned in the pocket. The catheter was then measured and cut. The introducer sheath was exchanged for a peel-away sheath. The catheter was passed through the peel-away sheath into the internal jugular vein and the peel-away sheath was removed. The port tip was positioned at the cavoatrial junction. The port was then accessed with a Galvez needle. The port flushes and aspirates well. The puncture site in the neck was closed. The chest wall incision was then closed with 2-0 Vicryl and 4-0 Monocryl. Glue and Steri- Strips were applied. A sterile dressing was then applied. The patient tolerated the procedure well and was returned to the PRU in stable condition. Estimated blood loss: <5 ml. Complications: None. Conclusion: 1. Successful placement of an 8-Portuguese Angio dynamics Smart power port via the right internal jugular vein. The port is ready for immediate use. 2. Patient to follow up in IR clinic in 2 weeks. Thank you for this referral. JAZLYN DUGAN MD Mar 30, 2020 10:30
[2020-03-30 12:15] VITALS: BP 122/76
== END ==
LOC: M IRPRO 08:30
PROVIDERS: ATTEND Radiology Diagnostic Radiology
DX: C09.9 Malignant neoplasm of tonsil, unspecified (principal)
CPT/HCPCS: 36561; C1769; C1788; C1894; J0690; J1642; J1644; J3010

== ENCOUNTER → 2020-04-04 | Outpatient (CLI) | payer MEDICARE, BC, OTHER ==
[~2020-04-04] MED LIST changes: -ACETAMINOPHEN 325 MG TAB As Ordered ONE; -ACETAMINOPHEN TAB 650MG DOSE (2X325MG) PO ONE; +GLUCAGON INJ 1MG VIAL As Ordered ONE; +ISOVUE-300 61% 50ML VIAL As Ordered ONE; +LIDOCAINE 2% JELLY 30ML As Ordered ONE; +MIDAZOLAM INJ 2MG/2ML VIAL (J2250 PER 1MG) As Ordered ONE; +diphenhydrAMINE 50MG/ML VIAL (J1200) As Ordered ONE
--- NOTE | 2020-04-04 13:59 | IRHP ---
[facility] IR Pre-Procedure H & P General Date of Service: Apr 04, 2020 Procedure: Same Day Surgery Interval History and Physical I have seen the patient and reviewed last H & P performed within 30 days. There is no significant interval change. History of Present Illness Chief Complaint The patient is a 59-year-old male admitted with a reason for visit of Tonsil Ca, Dyspahgia. PRE-PROCEDURE DIAGNOSIS: tonsil ca HEART: normal rate. LUNGS: normal breathing at rest. ASA Classification ASA Classification: II-Mild systemic disease Mallampati Score: II NPO: Yes Problems with prior sedation: No Obstructive Sleep Apnea: No Plan moderate sedation Allergies Coded Allergies: clindamycin (Verified Adverse Reaction, Unknown, rash, hives, 12/11/18) Home Medications Scheduled Aspirin (Aspirin EC), 81 MG PO DAILY, (Reported) Omeprazole (Omeprazole), 20 MG PO BID, (Reported) Trazodone HCl (Trazodone HCl), 200 MG PO QHS, (Reported) Scheduled PRN Magic Mouthwash (First-Mouthwash Blm), 10 ML SSP QID PRN for MUCOSITIS Miscellaneous Medications Acetaminophen with Codeine (Acetaminophen-Cod #3 Tablet), (Reported) Discontinued Medications Amoxicillin (Amoxicillin), 500 MG PO QID, (Reported) Discontinued Reason: Pt states not taking Sildenafil Citrate (Sildenafil Citrate), 100 MG PO ASDIRECTED PRN for ERECTILE DYSFUNCTION, (Reported) Discontinued Reason: Pt states not taking VS, I&O, 24H, Fishbone Vital Signs/I&O Vital Signs Date Time Temp Pulse Resp B/P (MAP) Pulse Ox O2 Delivery O2 Flow Rate FiO2 04/04/20 13:45 88 18 96 Room Air 04/04/20 13:25 2 04/04/20 11:50 96.7 JAZLYN RICE MD Apr 04, 2020 13:59
--- NOTE | 2020-04-04 14:07 | POST-OPPD ---
Postoperative Procedure Note Date Of Procedure: Apr 04, 2020 Time Of Procedure: 14:00 Gastrostomy catheter placement with fluoroscopic guidance Clinical Information:Head and neck cancer. Difficulty swallowing. Weight loss. Chemoradiation therapy planned. Physician: Dr. Dugan. Procedure: The patient was advised of the benefits, risks, and alternatives of the procedure and informed consent was obtained. A time out was performed with verification of the patient's name, MRN, site of procedure, and type of procedure to be performed. The patient was positioned in the supine position on the angiographic table. The site was prepped and draped in the usual sterile fashion. Moderate sedation was performed by the physician including the presence of an independent trained RN, who assisted in monitoring the patient's level of consciousness and physiological status. Following the administration of fentanyl and Versed the physician spent 45 minutes of continuous [id number] time with the patient. A shearing machine feeder radiograph reveals surgical clips in the left abdomen. A 5 Palestinian glide cath in conjunction with a Glidewire, was inserted through the nostril, under fluoroscopy guidance, down the esophagus into the stomach. The wire was removed. One mg of glucagon was administered intravenously. The stomach was insufflated and distended with air through the nasogastric tube. The soft tissues overlying the anticipated puncture sites were anesthetized with lidocaine. A gastropexy needle was advanced into the stomach and positioning was confirmed with contrast injection. The gastropexy suture was deployed and secured in the usual fashion. A total of 3 gastropexy sutures were deployed. An 18 gauge needle was advanced into the body of the stomach. Contrast was injected documenting intra- gastric position. An Amplatz wire was advanced into the stomach. After serial dilation, a peel-away sheath was advanced over the wire, under fluoroscopy guidance, into the stomach. An 18 F CLEO Gastrostomy catheter was then advanced over the wire, through the peel-away sheath into the stomach and the peel-away sheath was removed. The balloon was insufflated and the catheter retracted back to the the anterior stomach wall. The bumper on the catheter was positioned and secured to sandwich the anterior stomach wall. Contrast was injected to confirm catheter position. The catheter was then placed to gravity drainage. The patient tolerated the procedure well and was returned to the PRU in stable condition. EBL:Less than 5 mL. Complications:None. Conclusion: 1. Successful placement of an 18 Palestinian CLEO gastrostomy catheter. 2. The catheter should remain to gravity drainage for 24 hours after which feedings may begin and advanced as tolerated. The gastropexy sutures should dissolve within 6 weeks and the buttons will fall off. Thank you for this referral. Cc JAZLYN Roman MD Apr 04, 2020 14:07
[2020-04-04 14:45] VITALS: BP 119/76
== END ==
LOC: M IRPRO 11:29
PROVIDERS: ATTEND Radiology Diagnostic Radiology
DX: C09.9 Malignant neoplasm of tonsil, unspecified (principal); R13.10 Dysphagia, unspecified; Z88.1 Allergy status to other antibiotic agents; Z79.82 Long term (current) use of aspirin; Z79.899 Other long term (current) drug therapy
CPT/HCPCS: 49440; 99152; 99153; C1729; C1769; C1887; C1894; J0690; J1200; J1610; J2250; J3010; Q9967

== ENCOUNTER 2020-04-05 10:12 | Outpatient (RCR) | payer MEDICARE, BC, OTHER ==
[~2020-04-05 10:12] MED LIST changes: -ACET1TAB16 PO; -DOXA2TAB3 PO; -GLUCAGON INJ 1MG VIAL As Ordered ONE; -ISOVUE-300 61% 50ML VIAL As Ordered ONE; -LIDOCAINE 1% MDV 20ML VIAL As Ordered ONE; -LIDOCAINE 2% JELLY 30ML As Ordered ONE; -MIDAZOLAM INJ 2MG/2ML VIAL (J2250 PER 1MG) As Ordered ONE; -ONDA8TAB10 PO; -PROC10TA4 PO; -SIMV20TA22 PO; -ceFAZolin 1GM VIAL (J0690 PER 500MG) As Ordered ONE; -diphenhydrAMINE 50MG/ML VIAL (J1200) As Ordered ONE; -fentaNYL 100 MCG/2 ML INJECTION (J3010) As Ordered ONE
[2020-04-11] MEDS ORDERED: DOXA2TAB3 PO (08:22)
[2020-04-11] MEDS ORDERED: SIMV20TA22 PO (08:22)
[2020-04-11] MEDS ORDERED: PROC10TA4 PO (10:01)
[2020-04-11] MEDS ORDERED: ACET1TAB16 PO ×2 (10:02→14:47)
[2020-04-18] MEDS ORDERED: ONDA8TAB10 PO (10:03)
== END 2020-04-14 ==
LOC: M ONCR 10:12
PROVIDERS: ATTEND General Practice
DX: C09.0 Malignant neoplasm of tonsillar fossa (principal)

== ENCOUNTER → 2020-04-17 | Outpatient (POV) | payer BC, OTHER ==
[~2020-04-17] MED LIST changes: +ACET1TAB16 PO; +DOXA2TAB3 PO; +ONDA8TAB10 PO; +PROC10TA4 PO; +SIMV20TA22 PO
--- NOTE | 2020-04-18 11:47 | IRPN ---
[facility] IR Progress Note IR Progress Note DATE: Apr 17, 2020 Patient did not come to the phone however his family member and caregiver answered all my questions on the phone. Duration of call was 5 minutes. FOLLOW-UP: Patient's carers states that patient is doing well status post port and PEG tube placement. No redness, swelling or discharge at either site. No fevers or chills. Reportedly patient is flushing gastrostomy catheter once a day with water. ON EXAMINATION: No video on patient side. IMPRESSION: Reportedly doing well status post port and PEG tube placement. Advised patient may use ensure mixed with water through the gastrostomy catheter to supplement nutrition as needed. No further follow-up scheduled unless initiated by patient and/or referring provider. Thank you for this referral. Allergies Coded Allergies: clindamycin (Verified Adverse Reaction, Unknown, rash, hives, 12/11/18) JAZLYN IRCE MD Apr 18, 2020 11:47
== END ==
LOC: M TMIRPOV 09:49
PROVIDERS: ATTEND Radiology Diagnostic Radiology
DX: Z45.2 Encounter for adjustment and management of vascular access device (principal)

== ENCOUNTER → 2020-05-14 | Outpatient (RCR) | payer MEDICARE, BC, OTHER ==
[~2020-05-14] MED LIST changes: +FERR325T3 PO
== END ==
LOC: M ONCR 04-16 11:35
PROVIDERS: ATTEND General Practice
DX: C09.0 Malignant neoplasm of tonsillar fossa (principal)

== ENCOUNTER 2020-05-15 15:50 | Outpatient (RCR) | payer MEDICARE, BC, OTHER ==
[2020-05-18] MEDS ORDERED: ACET1TAB16 PO (12:45)
[2020-05-22] MEDS ORDERED: FLUC100T PO (10:16)
[2020-05-23] MEDS ORDERED: OMEP1CAP73 PO (08:25)
[2020-06-12] MEDS ORDERED: ACET-645 PO (12:49)
[2020-06-12] MEDS ORDERED: FERR1TAB8 PO (12:49)
[2020-06-12] MEDS ORDERED: DOXA2TAB3 PO (12:49)
== END 2020-06-14 ==
LOC: M ONCR 15:50
PROVIDERS: ATTEND General Practice
DX: C09.0 Malignant neoplasm of tonsillar fossa (principal)

== ENCOUNTER → 2020-05-16 | Outpatient (CLI) | payer MEDICARE, BC, OTHER ==
[~2020-05-16] MED LIST changes: +ACET-645 PO; +CARD1TAB4 GT; +FERR1TAB8 PO; +FLUC100T PO; +OMEP-312 PO; +RAME8TAB2 PO; +SIMV20TA22 GT; +SULF1TAB93 GT
[2020-05-16 13:08] VITALS: BP_DIAS 71
--- NOTE | 2020-06-19 09:50 | IRPN ---
[facility] IR Progress Note IR Progress Note DATE: May 16, 2020 FOLLOW-UP: Status post PEG tube placement. Patient doing well but feels tube is sliding more. ON EXAMINATION: Tube site appears good. No discharge swelling or redness. Baloon remains inflated. Bumper retracted from skin. The bumper was slid down the tube, snug to the abdomen to prevent sliding sensation. IMPRESSION: Doing well status post G tube placement. No further follow up scheduled unless initiated by patient or referring provider. Thank you for this referral Allergies Coded Allergies: clindamycin (Verified Adverse Reaction, Unknown, rash, hives, 06/12/20) JAZLYN RICE MD Jun 19, 2020 09:50
== END ==
LOC: M IRPRO 12:52
PROVIDERS: ATTEND Radiology Diagnostic Radiology
DX: Z43.1 Encounter for attention to gastrostomy (principal)

== ENCOUNTER 2020-06-01 10:32 | Outpatient (CLI) | payer MEDICARE, BC, OTHER ==
[~2020-06-01 10:32] MED LIST changes: -ACET-645 PO; -CARD1TAB4 GT; -FERR1TAB8 PO; -OMEP-312 PO; -RAME8TAB2 PO; -SIMV20TA22 GT; -SULF1TAB93 GT
[2020-06-01 10:34] VITALS: BP 110/66
[2020-06-01] MEDS ORDERED: dexameTHASONE 20MG/5ML VIAL (J1100 PER 1MG) IV ONE (10:45)
[2020-06-01] MEDS: NS 1,000 ML IV SCH ×2 (11:11→12:45)
[2020-06-01 14:30] VITALS: BP 121/64
[2020-06-01] MEDS ORDERED: SODIUM CHLORIDE 0.9% INJ 10 ML SYR IV PRN (16:00)
[2020-06-02] MEDS ORDERED: SODIUM CHLORIDE 0.9% INJ 10 ML SYR IV SCH (09:00)
== END 2020-06-01 14:30 | disposition home or self-care (01) ==
LOC: M INFU 10:32
PROVIDERS: ATTEND General Practice
DX: C09.9 Malignant neoplasm of tonsil, unspecified (principal); Z88.1 Allergy status to other antibiotic agents
CPT/HCPCS: 96361; 96374; J1100; J1642

== ENCOUNTER 2020-06-07 09:00 | Outpatient (RCR) | payer MEDICARE, BC, OTHER ==
--- NOTE | 2020-06-01 10:31 | RADENCPD ---
Date/Time of Encounter Date of Encounter: Jun 01, 2020 Time of Encounter: 10:29 Encounter Patient notably dehydrated this AM. [place] lightheaded upon standing earlier, BP 90s/60s which is low for him. Has not been effectively utilizing his PEG tube as instructed. He is pale with poor cap refill on assessment. I recommend IVF and decadron today. Also he needs to put 5-6 ensure per day into his PEG tube. Has home care assistance, unclear why this is not occurring. Plan: 2L NS bolus today 8 mg IV decadron once 5-6 ensure per PEG daily, this would meet his caloric and hydration needs TESSA AMADO MD Jun 01, 2020 10:31
[2020-06-12] MEDS ORDERED: ACET-645 PO (12:49)
[2020-06-12] MEDS ORDERED: FERR1TAB8 PO (12:49)
[2020-06-12] MEDS ORDERED: DOXA2TAB3 PO (12:49)
== END 2020-06-14 ==
LOC: M ONCR 09:00
PROVIDERS: ATTEND General Practice
DX: C09.0 Malignant neoplasm of tonsillar fossa (principal)

== ENCOUNTER 2020-06-12 10:56 | Inpatient (IN) | payer MEDICARE, BC, OTHER ==
[~2020-06-12] VITALS: Ht 177.8 cm; Wt 58.6 kg
[2020-06-12] MEDS ORDERED: NS 1,000 ML IV SCH (11:30)
[2020-06-12 12:46] LABS: RSV AMPLIFICATION NEGATIVE (NEGATIVE)
[2020-06-12] MEDS ORDERED: FERR1TAB8 PO (12:49)
[2020-06-12] MEDS ORDERED: DOXA2TAB3 PO (12:49)
[2020-06-12] MEDS ORDERED: ACET-645 PO (12:49)
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
--- NOTE | 2020-06-12 13:22 | ECGEPIP ---
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
[2020-06-12] MEDS: NS 1,000 ML IV SCH (13:40)
--- NOTE | 2020-06-12 13:54 | REP ---
INDICATION: cough COMPARISON: 02/10/2020 TECHNIQUE: Portable AP view of the chest FINDINGS: Mediastinum and cardiac silhouette are within normal limits. [id number] identified with tip in the SVC. Right-sided pleuroparenchymal changes and old rib fractures remains stable. Left hemithorax is clear. No obvious acute process.. IMPRESSION: Chronic stable changes. No obvious acute superimposed process. If the patient remains symptomatic consider chest CT for further investigation. <Electronically signed by Rafael Head > 06/12/20 [id number]
[2020-06-12] MEDS ORDERED: PROCHLORPERAZINE 5 MG TAB (S0183) GT PRN (14:15)
--- NOTE | 2020-06-12 14:50 | REP ---
INDICATION: hypoxia, rhonchi COMPARISON: None TECHNIQUE: Axial noncontrast images from the thoracic inlet to the upper abdomen with coronal and sagittal reformations. This CT examination was performed using the following dose reduction techniques: Automated exposure control, adjustment of mA and/or kv according to the patient's size, and use of iterative reconstruction technique. FINDINGS: Chronic COPD/emphysematous disease with bronchiectasis and scattered perihilar and lower lobe scarring noted. Moderate superimposed early alveolar infiltrates are identified involving the bilateral lower lobes (right greater than left) and right middle lobe. No effusion. No pneumothorax. No significant adenopathy. Mediastinum demonstrates atherosclerotic changes to the thoracic aorta and coronary arteries without aortic aneurysm or cardiomegaly. No pericardial effusion. IMPRESSION: Scattered superimposed alveolar infiltrates consistent with early pneumonia primarily involving the lower lobes and right middle lobe. Follow-up to resolution recommended. <Electronically signed by Rafael Head > 06/12/20 [id number]
[2020-06-12] MEDS ORDERED: LevoFLOXacin IV 750 MG in IV 1 EA IV ONE (17:00)
[2020-06-12 17:10] VITALS: BP 127/77
[2020-06-12] MEDS: LevoFLOXacin IV 750 MG in IV 1 EA IV SCH (17:43)
[2020-06-12] MEDS: CEFEPIME HCL 2 GM in D5W MINI-BAG PLUS 50 ML IV SCH (20:20)
[2020-06-12] MEDS: HEPARIN SOD (PORCINE) 5000UNITS/ML 1ML VIAL/SYRINGE SC SCH (20:22)
[2020-06-12] MEDS ORDERED: FERROUS SULFATE 325MG TAB GT SCH (21:00)
[2020-06-12] MEDS ORDERED: OMEPRAZOLE 20 MG CAP PO SCH (21:00)
[2020-06-12] MEDS ORDERED: VANICREAM MOISTURIZING SKIN CREAM 113GM TUBE TOP SCH (21:00)
[2020-06-12 22:00] VITALS: BP 127/79
[2020-06-12] MEDS: FERROUS SULFATE 300MG/5ML UDC LIQUID GT SCH (23:01)
[2020-06-12] MEDS: DOXAZOSIN MESYLATE 1 MG TAB GT SCH (23:02)
[2020-06-12] MEDS: SIMVASTATIN 20 MG TAB GT SCH (23:02)
[2020-06-12] MEDS: PANTOPRAZOLE 40MG VIAL (C9113 PER 1) IV SCH (23:02)
[2020-06-12] MEDS: ACETAMINOPH W/CODEINE #3 TAB UD GT SCH (23:03)
[2020-06-13] MEDS: NS 1,000 ML IV SCH ×3 (02:43→11:00)
[2020-06-13 06:00] VITALS: BP 109/71
[2020-06-13 06:17] LABS: HEMATOCRIT 25.8 % (42.0-52.0); HEMOGLOBIN 7.8 g/dl (13.5-17.5); MEAN CORPUSCULAR HEMOGLOBIN 23.5 pg (27.0-33.0); MEAN CORPUSCULAR HGB CONC 30.2 g/dl (32.0-36.5); MEAN CORPUSCULAR VOLUME 77.7 fl (80.0-96.0); PLATELET COUNT, AUTOMATED 159 10^3/uL (150-450); RED BLOOD COUNT 3.32 10^6/uL (4.30-6.10); WHITE BLOOD COUNT 8.1 10^3/uL (4.0-10.0)
[2020-06-13 07:03] LABS: ALBUMIN 2.4 GM/DL (3.2-5.2); BILIRUBIN,TOTAL 0.2 MG/DL (0.2-1.0); CALCIUM LEVEL 7.8 MG/DL (8.8-10.2); CREATININE FOR GFR 1.54 MG/DL (0.70-1.30); GLOMERULAR FILTRATION RATE 49.3 (>49); POTASSIUM SERUM 3.5 MEQ/L (3.5-5.1); TOTAL PROTEIN 5.6 GM/DL (6.4-8.2)
[2020-06-13] MEDS: CEFEPIME HCL 2 GM in D5W MINI-BAG PLUS 50 ML IV SCH ×2 (07:47→19:33)
--- NOTE | 2020-06-13 08:50 | RADENCPD ---
Date/Time of Encounter Date of Encounter: Jun 13, 2020 Time of Encounter: 08:42 Encounter I note that Manny has been admitted with pneumonia and acute kidney injury. To clarify, his last radiation treatment to the head and neck was 06/07/20. His thick secretions are due to the effects of radiation on his salivary glands. This stands to spontaneously improve over time, acutely, I suggest aggressive hydration which will thin these out. Scopolamine patches are reasonable to try, but most patients in his situation don't benefit much at the cost of anticholi nergic side effects. I think his pneumonia looks like aspiration, which is not surprising given his treatment, dysphagia, and mucositis. I think he would benefit from QA AUDITOR evaluation and any dietary modification they suggest to prevent additional aspiration in the short term, and any suggestions they have for longer-term management/rehabilitation. I will visit him today if I can, if not today, then tomorrow. He has scheduled short term follow up with me in place. This can be adjusted depending on his hospital course. TESSA AMADO MD Jun 13, 2020 08:50
[2020-06-13] MEDS: SODIUM CHLORIDE 0.9% INJ 10 ML SYR IV SCH (09:00)
[2020-06-13] MEDS: ACETAMINOPH W/CODEINE #3 TAB UD GT SCH ×2 (09:00→20:24)
[2020-06-13] MEDS: PANTOPRAZOLE 40MG VIAL (C9113 PER 1) IV SCH ×2 (11:01→20:23)
[2020-06-13] MEDS: HEPARIN SOD (PORCINE) 5000UNITS/ML 1ML VIAL/SYRINGE SC SCH ×2 (11:01→20:23)
[2020-06-13 14:00] VITALS: BP 114/70
--- NOTE | 2020-06-13 17:53 | IPNPDOC ---
Date Seen The patient was seen on 06/13/20. Progress Note SUBJECTIVE: Swallowing evaluation done today by therapist who also sees patient o/p. States he is noncompliant at home and was recommended previously to be NPO. High risk for aspiration today, recommended ice chips and continuation of tube feedings. Currently on continuous tube feeding regimen with IVFs while Cr continues to improve. Decreased fluids as drop in H/H likely dilutional. WBC now wnl. He states his secretion production is decreased and it helps that he has suction at this bedside whenever he needs. it. Radiation/oncology may see today, please see their note. He denies incr SOB, chest pain, n/v/d. OBJECTIVE: PHYSICAL EXAMINATION: VS: please see below CONSTITUTIONAL: No acute distress, resting comfortably, AAO x 3 today-forgetful intermittently at times EYES: PERRLA, EOM intact HENT, MOUTH: Normocephalic, atraumatic, moist mucous membranes, many oral secretions NECK: SUPPLE, no JVD, no lymphadenopathy, no carotid bruit CV: Regular rate and rhythm, S1S2 normal, no murmurs/rubs/gallops CHEST: port in right chest RESPIRATORY: Clear to auscultation bilaterally, no rales/rhonchi/wheezes GI: thin abd, feeding tube in left abd wall, BS positive in 4 quadrants, soft, nontender, nondistended, no rebound or guarding, no organomegaly : Deferred MUSCULOSKELETAL:thin ext, Normal ROM. No cyanosis, clubbing, swelling, joint deformity, extremity edema INTEGUMENTARY: Intact, no rashes, no lesions, no erythema NEUROLOGIC: Cranial Nerves II-XII are intact, no focal deficits PSYCHIATRIC: Mood and affect are normal LABORATORY DATA: Please see below IMAGING: CXR: Chronic stable changes. No obvious acute superimposed process. If the patient remains symptomatic consider chest CT for further investigation. ASSESSMENT: 59-year-old male with past medical history of throat cancer status post chemotherapy and radiation (completed 06/11), hypertension, hyperlipidemia, hypothyroidism admitted for acute kidney injury likely 2/2 to dehydration, dysphagia r/o aspiration, hypoxia. PLAN: Pneumonia cannot r/o community acquired PNA vs. aspiration PNA OR BOTH -WBC wnl, immunocompromised with receiving chemo, radiation -Currently 95% on 2 L NC -CT chest: Scattered superimposed alveolar infiltrates consistent with early pneumonia primarily involving the lower lobes and right middle lobe. Follow-up to resolution recommended. -Sputum GS: MANY EPITHELIAL CELLS, FEW WBCS, MANY GRAM POSITIVE COCCI IN PAIRS, CHAINS AND CLUSTERS; FEW GRAM NEGATIVE RODS, MODERATE GRAM POSITIVE RODS -No sputum cx done as it was likely contaminated -BCx NG to date, CBC daily -Aspiration precautions below -C/w Levofloxacin, cefepime, nebs PRN Acute kidney injury likely 2/2 to prerenal cause, dehydration -Cr 2.2 on admission --> 1.54 this AM, baseline is normally wnl -Decreased NSS to 85 cc/hr today, tomorrow if Cr wnl can d/c fluids and increase amount of free water in feeding tube. -Follow up daily labs, avoid nephrotoxic meds Dysphagia with aspiration -Swallowing evaluation done today by therapist who knows patient from home therapy: high risk for aspiration, keep NPO, ice chips. States patient has history of noncompliance at home. No additional imaging recommended at this time -Keep on continuous tube feedings for now and can likely increase free water instead of NSS by 06/14/20. -Concern is discharge, patient will likely need help with this at home more than what he is getting now. Discussed with PFS to see if more aid/help is available OR if another discharge plan is needed. -Elevate HOB, aspiration precautions, keep NPO except ice chips Increased oral secretions 2/2 to effects of radiation on his salivary glands -Per rad/onc this will improve over time -C/w aggressive hydration, suction available at bedside -Avoiding scopalamine patch currently -He is likely aspirating on these secretions too so aspiration precautions are necessary as mentioned aboe. Throat Cancer s/p chemotherapy and radiation (last session 06/07) -Rad/onc left note today, please refer to for more information. Agrees with current plan -Antiemetics resumed -F/u with o/p rad/onc short term or can be seen during hospital course if needed. HTN -Stable HLD -Statin GI px -PPI BID DVT px -heparin Resolved issues: Low BP at outpatient office likely 2/2 to dehydration DISPOSITION: Admitted to acute inpatient. Plan is hopefully home with services needed when medically improved. VS, I&O, 24H, Fishbone Vital Signs/I&O Vital Signs Date Time Temp Pulse Resp B/P (MAP) Pulse Ox O2 Delivery O2 Flow Rate FiO2 06/13/20 11:00 2.0 06/13/20 09:00 16 06/13/20 06:00 98.1 96 109/71 (84) 95 Nasal Cannula I&O- Last 24 Hours up to 6 AM 06/13/20 05:59 Intake Total 1537.5 ml Output Total 0 ml Balance 1537.5 ml Laboratory Data 24H LABS Laboratory Tests 2 06/13/20 06:09: Nucleated Red Blood Cells % (auto) 0.0, Anion Gap 8, Glomerular Filtration Rate 49.3, Calcium Level 7.8#L, Total Bilirubin 0.2, Aspartate Amino Transf (AST/SGOT) 9, Alanine Aminotransferase (ALT/SGPT) 8L, Alkaline Phosphatase 127H, Total Protein 5.6#L, Albumin 2.4#L, Albumin/Globulin Ratio 0.8 CBC/BMP Laboratory Tests 06/13/20 06:09 Microbiology Microbiology 06/13/20 Gram Stain - Final, Complete 06/13/20 Sputum Culture - Final, Complete 06/12/20 Blood Culture - Preliminary, Resulted No growth after 24 hours . All specim... 06/12/20 Blood Culture - Preliminary, Resulted No growth after 24 hours . All specim... Current Medications Current Medications Medications (Trade) Dose Ordered Sig/Laney Route PRN Reason Start Time Stop Time Status Last Admin Dose Admin Acetaminophen/ Codeine Phosphate (Tylenol/Codeine #3 Tablet) 1 ea BID GT 06/12/20 21:00 06/12/20 23:03 Albuterol Sulfate (Proventil Neb) 2.5 mg Q2HP PRN NEB SOB/WHEEZING 06/12/20 15:45 Cefepime HCl 2 gm/ Dextrose 50 ml @ 100 mls/hr Q12H IV 06/12/20 20:00 06/13/20 07:47 Doxazosin Mesylate (Cardura) 2 mg QHS GT 06/12/20 21:00 06/12/20 23:02 Emollient Cream (Vanicream) 1 dose BID TOP 06/12/20 21:00 06/12/20 21:19 DC Ferrous Sulfate (Ferrous Sulfate) 300 mg QHS GT 06/12/20 21:00 06/12/20 23:01 Ferrous Sulfate (Ferrous Sulfate) 325 mg QHS GT 06/12/20 21:00 06/12/20 20:37 DC Heparin Sodium (Heparin (Flush)) 500 units ASDIRECTED PRN IV SEE LABEL COMMENTS 06/12/20 21:30 Heparin Sodium (Heparin (Flush)) 500 units DAILY IV 06/13/20 09:00 Heparin Sodium (Porcine) (Heparin) 5,000 units Q12H SC 06/12/20 21:00 06/13/20 11:01 Home Med (Med Rec Complete!) ASDIRECTED XX 06/12/20 13:00 06/12/20 12:51 DC Levofloxacin 750 mg/IV Miscellaneous Supplies 150 ml @ 100 mls/hr Q48H IV 06/12/20 18:00 06/12/20 17:43 Omeprazole (PriLOSEC) 20 mg BID PO 06/12/20 21:00 Cancel Ondansetron HCl (Zofran) 8 mg TIDP PRN GT NAUSEA 06/12/20 14:15 Pantoprazole Sodium (Protonix) 40 mg BID IV 06/12/20 21:00 06/13/20 11:01 Prochlorperazine (Compazine) 10 mg Q6H PRN GT NAUSEA 06/12/20 14:15 Simvastatin (Zocor) 20 mg QHS GT 06/12/20 21:00 06/12/20 23:02 Sodium Chloride 1,000 ml @ 125 mls/hr Q8H IV 06/12/20 13:15 06/13/20 11:00 Sodium Chloride 1,000 ml @ 200 mls/hr Q5H IV 06/12/20 11:30 06/12/20 13:35 DC 06/12/20 11:39 Sodium Chloride (Saline Lock Flush) 10 ml ASDIRECTED PRN IV SEE LABEL COMMENTS 06/12/20 21:30 Sodium Chloride (Saline Lock Flush) 10 ml DAILY IV 06/13/20 09:00 Allergies Coded Allergies: clindamycin (Verified Adverse Reaction, Unknown, rash, hives, 06/12/20) Heaven Hair MD Jun 13, 2020 17:53
[2020-06-13] MEDS: FERROUS SULFATE 300MG/5ML UDC LIQUID GT SCH (20:21)
[2020-06-13] MEDS: SIMVASTATIN 20 MG TAB GT SCH (20:22)
[2020-06-13] MEDS: DOXAZOSIN MESYLATE 1 MG TAB GT SCH (20:22)
[2020-06-13 22:00] VITALS: BP 114/71
[2020-06-14] VITALS (12 sets, daily range): BP systolic 91–131; BP diastolic 60–81
[2020-06-14] MEDS: NS 1,000 ML IV SCH ×3 (04:21→21:20)
[2020-06-14 06:53] LABS: HEMATOCRIT 23.2 % (42.0-52.0); MEAN CORPUSCULAR HEMOGLOBIN 23.7 pg (27.0-33.0); MEAN CORPUSCULAR HGB CONC 30.2 g/dl (32.0-36.5); MEAN CORPUSCULAR VOLUME 78.6 fl (80.0-96.0); PLATELET COUNT, AUTOMATED 128 10^3/uL (150-450); RED BLOOD COUNT 2.95 10^6/uL (4.30-6.10); WHITE BLOOD COUNT 6.3 10^3/uL (4.0-10.0)
[2020-06-14] MEDS: CEFEPIME HCL 2 GM in D5W MINI-BAG PLUS 50 ML IV SCH ×2 (07:27→20:25)
[2020-06-14] MEDS: HEPARIN SOD (PORCINE) 5000UNITS/ML 1ML VIAL/SYRINGE SC SCH ×2 (07:29→21:20)
[2020-06-14] MEDS: SODIUM CHLORIDE 0.9% INJ 10 ML SYR IV SCH (07:30)
[2020-06-14] MEDS: PANTOPRAZOLE 40MG VIAL (C9113 PER 1) IV SCH ×2 (07:30→21:20)
[2020-06-14] MEDS: ACETAMINOPH W/CODEINE #3 TAB UD GT SCH ×2 (07:31→21:19)
[2020-06-14 07:45] LABS: ALBUMIN 2.1 GM/DL (3.2-5.2); ALT/SGPT < 6 U/L (12-78); BILIRUBIN,TOTAL 0.1 MG/DL (0.2-1.0); BLOOD UREA NITROGEN 28 MG/DL (7-18); CALCIUM LEVEL 7.9 MG/DL (8.8-10.2); CARBON DIOXIDE LEVEL 27 MEQ/L (21-32); CHLORIDE LEVEL 112 MEQ/L (98-107); CREATININE FOR GFR 1.35 MG/DL (0.70-1.30); GLOMERULAR FILTRATION RATE 57.4 (>49); GLUCOSE, FASTING 123 MG/DL (70-100); POTASSIUM SERUM 2.8 MEQ/L (3.5-5.1); SODIUM LEVEL 145 MEQ/L (136-145); TOTAL PROTEIN 5.7 GM/DL (6.4-8.2)
[2020-06-14] MEDS ORDERED: POTASSIUM CHLORIDE 10 MEQ SR TABLET PO ONE ×2 (08:15→09:00)
--- NOTE | 2020-06-14 09:03 | RADENCPD ---
Date/Time of Encounter Date of Encounter: Jun 14, 2020 Time of Encounter: 08:43 Encounter Met with Manny at bedside this AM. Reports he is tired but comfortable. He has minimal pain in the mouth and throat. States his saliva, while thick, has been more manageable yesterday and today. He denies choking and coughing, fevers, chills, CP, says he has not been out of bed. Likes having bedside suction. On exam, he is on 2L NC O2 Sats are 89-92% on continuous monitor. His lips are quite chapped, no signs of vesicular HSV lesions (has a history of these). His oral cavity is well hydrated, copious clear saliva noted, mucosa is pink, there is no evidence of thrush, in the right tonsillar fossa there is pale white mucosa, no evidence of residual mass, no ulceration, no residual mucositis. 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 He has onset of expected fibrosis and fat loss. There is minimal submental edema. There are no residual palpable cervical LN. Assessment/plan: I believe he has an aspiration pneumonia, which is not surprising given the ACCOUNT PROCESSOR assessment. He is at this juncture PEG dependent and may be for some time. He has home ACCOUNT PROCESSOR, and will need to be compliant with their recommendations to rehabilitate his swallowing function as the acute effects of his cancer and chemoradiation subside. I explained this may take weeks-months. In the meantime ensuring adequate hydration and nutrition through the PEG will be important. He would do well with 6 cans of Jevity 1.5 daily in effort to gain weight back (he previously was only intermittently compliant with tube feeding recommendations at home). His secretions seem to be thinning out and are more manageable now that he is rehydrated, portable suction for home use may be helpful to him. Overall, his baseline functional status and history of traumatic brain injury may necessitate more help at home or higher level of care at least in the short term as he recovers. Broaching this with family might be helpful, as they have been supportive throughout chemoradiation and may be able to provide additional care. With respect to his tumor, it has responded completely on my exam. He will have a PET-CT in ~2 months time to confirm this (previously ordered by me). I think he is receiving excellent hospital care, and I will see him as needed through the remainder of his hospital stay. I will facilitate follow up within a few days of discharge in my office. TESSA AMADO MD Jun 14, 2020 09:03
[2020-06-14] MEDS ORDERED: POTASSIUM CHLORIDE 10% LIQ 20 MEQ/15 ML UDC FT ONE (11:30)
--- NOTE | 2020-06-14 16:58 | IPNPDOC ---
Date Seen The patient was seen on 06/14/20. Progress Note SUBJECTIVE: H/H lower today, transfusing 2 units PRBC. Replacing K as potassium low. Still on IVFs as his Cr improves. States his secretions are thinning out and are a bit better. He denies incr SOB, chest pain, n/v/d. OBJECTIVE: PHYSICAL EXAMINATION: VS: please see below CONSTITUTIONAL: No acute distress, resting comfortably, AAO x 3 EYES: PERRLA, EOM intact HENT, MOUTH: Normocephalic, atraumatic, moist mucous membranes, many oral secretions NECK: SUPPLE, no JVD, no lymphadenopathy, no carotid bruit CV: Regular rate and rhythm, S1S2 normal, no murmurs/rubs/gallops CHEST: port in right chest RESPIRATORY: Clear to auscultation bilaterally, no rales/rhonchi/wheezes GI: thin abd, feeding tube in left abd wall, BS positive in 4 quadrants, soft, nontender, nondistended, no rebound or guarding, no organomegaly : Deferred MUSCULOSKELETAL:thin ext, Normal ROM. No cyanosis, clubbing, swelling, joint deformity, extremity edema INTEGUMENTARY: Intact, no rashes, no lesions, no erythema NEUROLOGIC: Cranial Nerves II-XII are intact, no focal deficits PSYCHIATRIC: Mood and affect are normal LABORATORY DATA: Please see below MICROBIOLOGY: See below IMAGING: CXR: Chronic stable changes. No obvious acute superimposed process. If the patient remains symptomatic consider chest CT for further investigation. ASSESSMENT: 59-year-old male with past medical history of throat cancer status post chemotherapy and radiation (completed 06/11), hypertension, hyperlipidemia, hypothyroidism admitted for acute kidney injury likely 2/2 to dehydration, dysphagia r/o aspiration, hypoxia. PLAN: Acute anemia likely dilutional to fluid administration -H/H dropped further to 7.0/23, asymptomatic -Transfusing 2 units PRBC today, f/u post-tranfusion H/H -Monitoring CBC daily Pneumonia cannot r/o community acquired PNA vs. aspiration PNA OR BOTH -WBC wnl, immunocompromised with receiving chemo, radiation -Currently 98% on 2 L NC- attempting to wean off gradually -CT chest: Scattered superimposed alveolar infiltrates consistent with early pneumonia primarily involving the lower lobes and right middle lobe. Follow-up to resolution recommended. -First sputum Cx: likely oropharyngeal contamination -Second sputum GS: QUALITY: GOOD, MANY WBCS, FEW GRAM POSITIVE COCCI IN PAIRS AND CHAINS. To follow up culture -BCx NG to date, CBC daily -Aspiration precautions below -C/w Levofloxacin, cefepime, nebs PRN Acute kidney injury likely 2/2 to prerenal cause, dehydration -Cr 2.2 on admission --> 1.35 this AM, baseline is normally wnl -C/w NSS at 85 cc/hr until Cr wnl -When Cr wnl, can d/c fluids and increase amount of free water in feeding tube. -Follow up daily labs, avoid nephrotoxic meds Dysphagia with aspiration -Swallowing evaluation done today by therapist who knows patient from home therapy: high risk for aspiration, keep NPO, ice chips. States patient has history of noncompliance at home. No additional imaging recommended at this time -Keep on continuous tube feedings for now and can likely increase free water instead of NSS by 06/14/20. -Concern is discharge, patient will likely need help with this at home more than what he is getting now. Discussed with PFS to see if more aid/help is available OR if another discharge plan is needed. -Elevate HOB, aspiration precautions, keep NPO except ice chips Increased oral secretions 2/2 to effects of radiation on his salivary glands -Per rad/onc this will improve over time. Please see their very detailed notes -C/w aggressive hydration, suction available at bedside -Avoiding scopalamine patch currently -He is likely aspirating on these secretions too so aspiration precautions are necessary as mentioned aboe. Throat Cancer s/p chemotherapy and radiation (last session 06/07) -Rad/onc following, please refer to their note. Agrees with current plan -C/w antiemetics HTN -Stable HLD -Statin GI px -PPI BID DVT px -heparin Resolved issues: Low BP at outpatient office likely 2/2 to dehydration DISPOSITION: Admitted to acute inpatient. Plan is hopefully home with services needed when medically improved. VS, I&O, 24H, Fishbone Vital Signs/I&O Vital Signs Date Time Temp Pulse Resp B/P (MAP) Pulse Ox O2 Delivery O2 Flow Rate FiO2 06/14/20 16:10 98.8 89 18 118/78 98 Nasal Cannula 2.0 I&O- Last 24 Hours up to 6 AM 06/14/20 05:59 Intake Total 2672.5 ml Output Total 1475 ml Balance 1197.5 ml Laboratory Data 24H LABS Laboratory Tests 2 06/14/20 06:31: Nucleated Red Blood Cells % (auto) 0.0, Anion Gap 6L, Glomerular Filtration Rate 57.4, Calcium Level 7.9L, Total Bilirubin 0.1L, Aspartate Amino Transf (AST/SGOT) 5L, Alanine Aminotransferase (ALT/SGPT) < 6L, Alkaline Phosphatase 95, Total Protein 5.7L, Albumin 2.1L, Albumin/Globulin Ratio 0.6 CBC/BMP Laboratory Tests 06/14/20 06:31 Microbiology Microbiology 06/13/20 Gram Stain - Final, Resulted 06/13/20 Sputum Culture, Resulted Pending 06/13/20 Gram Stain - Final, Complete 06/13/20 Sputum Culture - Final, Complete 06/12/20 Blood Culture - Preliminary, Resulted No Growth after 48 hours. All Specime... 06/12/20 Blood Culture - Preliminary, Resulted No Growth after 48 hours. All Specime... Current Medications Current Medications Medications (Trade) Dose Ordered Sig/Laney Route PRN Reason Start Time Stop Time Status Last Admin Dose Admin Acetaminophen/ Codeine Phosphate (Tylenol/Codeine #3 Tablet) 1 ea BID GT 06/12/20 21:00 06/14/20 07:31 Albuterol Sulfate (Proventil Neb) 2.5 mg Q2HP PRN NEB SOB/WHEEZING 06/12/20 15:45 Cefepime HCl 2 gm/ Dextrose 50 ml @ 100 mls/hr Q12H IV 06/12/20 20:00 06/14/20 07:27 Doxazosin Mesylate (Cardura) 2 mg QHS GT 06/12/20 21:00 06/13/20 20:22 Emollient Cream (Vanicream) 1 dose BID TOP 06/12/20 21:00 06/12/20 21:19 DC Ferrous Sulfate (Ferrous Sulfate) 300 mg QHS GT 06/12/20 21:00 06/13/20 20:21 Ferrous Sulfate (Ferrous Sulfate) 325 mg QHS GT 06/12/20 21:00 06/12/20 20:37 DC Heparin Sodium (Heparin (Flush)) 500 units ASDIRECTED PRN IV SEE LABEL COMMENTS 06/12/20 21:30 Heparin Sodium (Heparin (Flush)) 500 units DAILY IV 06/13/20 09:00 Heparin Sodium (Porcine) (Heparin) 5,000 units Q12H SC 06/12/20 21:00 06/14/20 07:29 Home Med (Med Rec Complete!) ASDIRECTED XX 06/12/20 13:00 06/12/20 12:51 DC Levofloxacin 750 mg/IV Miscellaneous Supplies 150 ml @ 100 mls/hr Q48H IV 06/12/20 18:00 06/12/20 17:43 Omeprazole (PriLOSEC) 20 mg BID PO 06/12/20 21:00 Cancel Ondansetron HCl (Zofran) 8 mg TIDP PRN GT NAUSEA 06/12/20 14:15 Pantoprazole Sodium (Protonix) 40 mg BID IV 06/12/20 21:00 06/14/20 07:30 Prochlorperazine (Compazine) 10 mg Q6H PRN GT NAUSEA 06/12/20 14:15 Simvastatin (Zocor) 20 mg QHS GT 06/12/20 21:00 06/13/20 20:22 Sodium Chloride 1,000 ml @ 85 mls/hr [id number] IV 06/12/20 13:15 06/14/20 04:21 Sodium Chloride 1,000 ml @ 200 mls/hr Q5H IV 06/12/20 11:30 06/12/20 13:35 DC 06/12/20 11:39 Sodium Chloride (Saline Lock Flush) 10 ml ASDIRECTED PRN IV SEE LABEL COMMENTS 06/12/20 21:30 Sodium Chloride (Saline Lock Flush) 10 ml DAILY IV 06/13/20 09:00 Allergies Coded Allergies: clindamycin (Verified Adverse Reaction, Unknown, rash, hives, 06/12/20) Heaven Hair MD Jun 14, 2020 16:58
[2020-06-14] MEDS: LevoFLOXacin IV 750 MG in IV 1 EA IV SCH (17:00)
[2020-06-14] MEDS: ALBUTEROL SULFATE 2.5 MG/0.5 ML INH NEB SOLN NEB PRN (17:26)
[2020-06-14 18:08] LABS: BLOOD UREA NITROGEN 24 MG/DL (7-18); CALCIUM LEVEL 7.9 MG/DL (8.8-10.2); CARBON DIOXIDE LEVEL 27 MEQ/L (21-32); CHLORIDE LEVEL 113 MEQ/L (98-107); CREATININE FOR GFR 1.23 MG/DL (0.70-1.30); GLOMERULAR FILTRATION RATE > 60.0 (>49); GLUCOSE, FASTING 100 MG/DL (70-100); POTASSIUM SERUM 3.5 MEQ/L (3.5-5.1); SODIUM LEVEL 147 MEQ/L (136-145)
[2020-06-14 19:00] LABS: HEMATOCRIT 32.5 % (42.0-52.0); MEAN CORPUSCULAR HEMOGLOBIN 24.7 pg (27.0-33.0); MEAN CORPUSCULAR HGB CONC 29.8 g/dl (32.0-36.5); MEAN CORPUSCULAR VOLUME 82.7 fl (80.0-96.0); PLATELET COUNT, AUTOMATED 132 10^3/uL (150-450); RED BLOOD COUNT 3.93 10^6/uL (4.30-6.10)
[2020-06-14 19:13] LABS: HEMOGLOBIN 9.7 g/dl (13.5-17.5)
[2020-06-14] MEDS: FERROUS SULFATE 300MG/5ML UDC LIQUID GT SCH (21:17)
[2020-06-14] MEDS: DOXAZOSIN MESYLATE 1 MG TAB GT SCH (21:18)
[2020-06-14] MEDS: SIMVASTATIN 20 MG TAB GT SCH (21:20)
[2020-06-15 06:00] VITALS: BP 126/78
[2020-06-15 06:25] LABS: HEMATOCRIT 30.9 % (42.0-52.0); HEMOGLOBIN 9.7 g/dl (13.5-17.5); MEAN CORPUSCULAR HEMOGLOBIN 25.3 pg (27.0-33.0); MEAN CORPUSCULAR HGB CONC 31.4 g/dl (32.0-36.5); MEAN CORPUSCULAR VOLUME 80.7 fl (80.0-96.0); PLATELET COUNT, AUTOMATED 127 10^3/uL (150-450); RED BLOOD COUNT 3.83 10^6/uL (4.30-6.10); WHITE BLOOD COUNT 7.7 10^3/uL (4.0-10.0)
[2020-06-15 07:02] LABS: ALBUMIN 2.1 GM/DL (3.2-5.2); ALT/SGPT < 6 U/L (12-78); BILIRUBIN,TOTAL 0.2 MG/DL (0.2-1.0); BLOOD UREA NITROGEN 23 MG/DL (7-18); CALCIUM LEVEL 7.5 MG/DL (8.8-10.2); CARBON DIOXIDE LEVEL 26 MEQ/L (21-32); CHLORIDE LEVEL 110 MEQ/L (98-107); CREATININE FOR GFR 1.17 MG/DL (0.70-1.30); GLOMERULAR FILTRATION RATE > 60.0 (>49); GLUCOSE, FASTING 133 MG/DL (70-100); POTASSIUM SERUM 3.1 MEQ/L (3.5-5.1); SODIUM LEVEL 143 MEQ/L (136-145); TOTAL PROTEIN 5.9 GM/DL (6.4-8.2)
[2020-06-15] MEDS ORDERED: POTASSIUM CHLORIDE 10 MEQ SR TABLET PO SCH (08:15)
[2020-06-15] MEDS: HEPARIN SOD (PORCINE) 5000UNITS/ML 1ML VIAL/SYRINGE SC SCH ×2 (08:32→21:48)
[2020-06-15] MEDS: CEFEPIME HCL 2 GM in D5W MINI-BAG PLUS 50 ML IV SCH ×2 (08:32→21:47)
[2020-06-15] MEDS: SODIUM CHLORIDE 0.9% INJ 10 ML SYR IV SCH (08:33)
[2020-06-15] MEDS: PANTOPRAZOLE 40MG VIAL (C9113 PER 1) IV SCH ×2 (08:34→21:50)
[2020-06-15] MEDS: ACETAMINOPH W/CODEINE #3 TAB UD GT SCH ×2 (08:38→21:50)
[2020-06-15] MEDS ORDERED: POTASSIUM CHLORIDE 10% LIQ 20 MEQ/15 ML UDC GT ONE (08:45)
[2020-06-15] MEDS: ALBUTEROL SULFATE 2.5 MG/0.5 ML INH NEB SOLN NEB PRN ×2 (09:27→15:08)
[2020-06-15] MEDS: NS 1,000 ML IV SCH ×2 (10:29→21:44)
--- NOTE | 2020-06-15 13:43 | IPNPDOC ---
Date Seen The patient was seen on 06/15/20. Progress Note SUBJECTIVE: H/H improved to 9.7/30.9 s/p 2 units PRBC. Replaced 60mEq but patient later vomited, will repeat K later today. No transportation worker to calculate free water needed to substitute for IVFs, likely will be here in the AM. Keeping on IVF until then, Cr now wnl. He denies incr SOB, chest pain, n/v/d. OBJECTIVE: PHYSICAL EXAMINATION: VS: please see below CONSTITUTIONAL: No acute distress, resting comfortably, AAO x 3 EYES: PERRLA, EOM intact HENT, MOUTH: Normocephalic, atraumatic, moist mucous membranes, many oral secretions NECK: SUPPLE, no JVD, no lymphadenopathy, no carotid bruit CV: Regular rate and rhythm, S1S2 normal, no murmurs/rubs/gallops CHEST: port in right chest RESPIRATORY: Clear to auscultation bilaterally, no rales/rhonchi/wheezes GI: thin abd, feeding tube in left abd wall, BS positive in 4 quadrants, soft, nontender, nondistended, no rebound or guarding, no organomegaly : Deferred MUSCULOSKELETAL:thin ext, Normal ROM. No cyanosis, clubbing, swelling, joint deformity, extremity edema INTEGUMENTARY: Intact, no rashes, no lesions, no erythema NEUROLOGIC: Cranial Nerves II-XII are intact, no focal deficits PSYCHIATRIC: Mood and affect are normal LABORATORY DATA: Please see below MICROBIOLOGY: Sputum GS repeat: Gram + in pairs and chains Sputum CX repeated: Staph aureus, sensitivities pending IMAGING: CXR: Chronic stable changes. No obvious acute superimposed process. If the patient remains symptomatic consider chest CT for further investigation. ASSESSMENT: 59-year-old male with past medical history of throat cancer status post chemotherapy and radiation (completed 06/11), hypertension, hyperlipidemia, hypothyroidism admitted for acute kidney injury likely 2/2 to dehydration, dysphagia r/o aspiration, hypoxia. PLAN: Acute anemia likely dilutional to fluid administration -H/H 7.0/23--> 9.7/30 s/p 2 units PRBC on 06/14/20. -No s/s of bleeding -Monitoring CBC daily Pneumonia cannot r/o community acquired PNA vs. aspiration PNA OR BOTH -WBC wnl, immunocompromised with receiving chemo, radiation -Currently 98% on 1 L NC- attempting to wean off gradually -CT chest: Scattered superimposed alveolar infiltrates consistent with early pneumonia primarily involving the lower lobes and right middle lobe. Follow-up to resolution recommended. -Second sputum GS: QUALITY: GOOD, MANY WBCS, FEW GRAM POSITIVE COCCI IN PAIRS AND CHAINS. Culture Staph aureus with sensitivites pending -BCx NG to date, CBC daily -Aspiration precautions below -C/w Levofloxacin, cefepime, nebs PRN Acute kidney injury likely 2/2 to prerenal cause, dehydration -Cr wnl this AM, baseline is normally wnl -C/w NSS at 85 cc/hr until nutrition can give us increased amount of free water to add to feeding tube. -Follow up daily labs, avoid nephrotoxic meds Hypokalemia, acute -S/p 60 mEq liquid KCl in tube, vomited later -Repeating BMP this afternoon -F/u labs and replace PRN Dysphagia with aspiration -Swallowing evaluation done today by therapist who knows patient from home therapy: high risk for aspiration, keep NPO, ice chips. States patient has history of noncompliance at home. No additional imaging recommended at this time -Keep on continuous tube feedings for now and can likely increase free water instead of NSS by 06/14/20. -Concern is discharge, patient will likely need help with this at home more than what he is getting now. Discussed with PFS to see if more aid/help is available OR if another discharge plan is needed. -Elevate HOB, aspiration precautions, keep NPO except ice chips Increased oral secretions 2/2 to effects of radiation on his salivary glands -Per rad/onc this will improve over time. Please see their very detailed notes -C/w aggressive hydration, suction available at bedside -Avoiding scopalamine patch currently -Aspiration precautions Throat Cancer s/p chemotherapy and radiation (last session 06/07) -Rad/onc following, please refer to their note. Agrees with current plan -C/w antiemetics HTN -Stable HLD -Statin GI px -PPI BID DVT px -heparin Resolved issues: Low BP at outpatient office likely 2/2 to dehydration DISPOSITION: Admitted to acute inpatient. Plan is hopefully home with services needed when medically improved. VS, I&O, 24H, Fishbone Vital Signs/I&O Vital Signs Date Time Temp Pulse Resp B/P (MAP) Pulse Ox O2 Delivery O2 Flow Rate FiO2 06/15/20 09:09 18 06/15/20 08:38 Room Air 06/15/20 06:00 98.0 89 126/78 (94) 94 1.0 I&O- Last 24 Hours up to 6 AM 06/15/20 06:00 Intake Total 3613 ml Output Total 2150 ml Balance 1463 ml Laboratory Data 24H LABS Laboratory Tests 2 06/14/20 17:26: Anion Gap 7L, Glomerular Filtration Rate > 60.0, Calcium Level 7.9L 06/14/20 18:45: Nucleated Red Blood Cells % (auto) 0.0 06/15/20 05:55: Anion Gap 7L, Glomerular Filtration Rate > 60.0, Calcium Level 7.5L, Nucleated Red Blood Cells % (auto) 0.0, Total Bilirubin 0.2#, Aspartate Amino Transf (AST/SGOT) 9, Alanine Aminotransferase (ALT/SGPT) < 6L, Alkaline Phosphatase 94, Total Protein 5.9L, Albumin 2.1L, Albumin/Globulin Ratio 0.6 CBC/BMP Laboratory Tests 06/14/20 17:26 06/14/20 18:45 06/15/20 05:55 Microbiology Microbiology 06/13/20 Gram Stain - Final, Resulted 06/13/20 Sputum Culture - Preliminary, Resulted Staphylococcus Aureus 06/13/20 Gram Stain - Final, Complete 06/13/20 Sputum Culture - Final, Complete 06/12/20 Blood Culture - Preliminary, Resulted No Growth after 72 hours. All specime... 06/12/20 Blood Culture - Preliminary, Resulted No Growth after 72 hours. All specime... Current Medications Current Medications Medications (Trade) Dose Ordered Sig/Laney Route PRN Reason Start Time Stop Time Status Last Admin Dose Admin Acetaminophen/ Codeine Phosphate (Tylenol/Codeine #3 Tablet) 1 ea BID GT 06/12/20 21:00 06/15/20 08:38 Albuterol Sulfate (Proventil Neb) 2.5 mg Q2HP PRN NEB SOB/WHEEZING 06/12/20 15:45 06/15/20 09:27 Cefepime HCl 2 gm/ Dextrose 50 ml @ 100 mls/hr Q12H IV 06/12/20 20:00 06/15/20 08:32 Doxazosin Mesylate (Cardura) 2 mg QHS GT 06/12/20 21:00 06/14/20 21:18 Emollient Cream (Vanicream) 1 dose BID TOP 06/12/20 21:00 06/12/20 21:19 DC Ferrous Sulfate (Ferrous Sulfate) 300 mg QHS GT 06/12/20 21:00 06/14/20 21:17 Ferrous Sulfate (Ferrous Sulfate) 325 mg QHS GT 06/12/20 21:00 06/12/20 20:37 DC Heparin Sodium (Heparin (Flush)) 500 units ASDIRECTED PRN IV SEE LABEL COMMENTS 06/12/20 21:30 Heparin Sodium (Heparin (Flush)) 500 units DAILY IV 06/13/20 09:00 06/15/20 08:33 Heparin Sodium (Porcine) (Heparin) 5,000 units Q12H SC 06/12/20 21:00 06/15/20 08:32 Home Med (Med Rec Complete!) ASDIRECTED XX 06/12/20 13:00 06/12/20 12:51 DC Levofloxacin 750 mg/IV Miscellaneous Supplies 150 ml @ 100 mls/hr Q48H IV 06/12/20 18:00 06/14/20 17:00 Omeprazole (PriLOSEC) 20 mg BID PO 06/12/20 21:00 Cancel Ondansetron HCl (Zofran) 8 mg TIDP PRN GT NAUSEA 06/12/20 14:15 Pantoprazole Sodium (Protonix) 40 mg BID IV 06/12/20 21:00 06/15/20 08:34 Potassium Chloride (Micro-K Extencaps) 30 meq Q2H PO 06/15/20 08:15 06/15/20 10:16 Cancel Prochlorperazine (Compazine) 10 mg Q6H PRN GT NAUSEA 06/12/20 14:15 Simvastatin (Zocor) 20 mg QHS GT 06/12/20 21:00 06/14/20 21:20 Sodium Chloride 1,000 ml @ 85 mls/hr [id number] IV 06/12/20 13:15 06/15/20 10:29 Sodium Chloride 1,000 ml @ 200 mls/hr Q5H IV 06/12/20 11:30 06/12/20 13:35 DC 06/12/20 11:39 Sodium Chloride (Saline Lock Flush) 10 ml ASDIRECTED PRN IV SEE LABEL COMMENTS 06/12/20 21:30 Sodium Chloride (Saline Lock Flush) 10 ml DAILY IV 06/13/20 09:00 06/15/20 08:33 Allergies Coded Allergies: clindamycin (Verified Adverse Reaction, Unknown, rash, hives, 06/12/20) Heaven Hair MD Jun 15, 2020 13:43
[2020-06-15 14:00] VITALS: BP 134/88
[2020-06-15 14:56] LABS: BLOOD UREA NITROGEN 22 MG/DL (7-18); CALCIUM LEVEL 7.5 MG/DL (8.8-10.2); CARBON DIOXIDE LEVEL 27 MEQ/L (21-32); CHLORIDE LEVEL 111 MEQ/L (98-107); CREATININE FOR GFR 1.12 MG/DL (0.70-1.30); GLOMERULAR FILTRATION RATE > 60.0 (>49); GLUCOSE, FASTING 116 MG/DL (70-100); POTASSIUM SERUM 3.4 MEQ/L (3.5-5.1); SODIUM LEVEL 145 MEQ/L (136-145)
[2020-06-15] MEDS: FERROUS SULFATE 300MG/5ML UDC LIQUID GT SCH (21:47)
[2020-06-15] MEDS: DOXAZOSIN MESYLATE 1 MG TAB GT SCH (21:49)
[2020-06-15] MEDS: SIMVASTATIN 20 MG TAB GT SCH (21:49)
[2020-06-15 22:00] VITALS: BP 156/97
[2020-06-16] MEDS ORDERED: ACETAMINOPHEN TAB 650MG DOSE (2X325MG) PO PRN (05:30)
[2020-06-16 06:00] VITALS: BP 125/84
[2020-06-16] MEDS ORDERED: ACETAMINOPHEN TAB 650MG DOSE (2X325MG) GT PRN (06:15)
[2020-06-16 06:36] LABS: ALT/SGPT 8 U/L (12-78); BILIRUBIN,TOTAL 0.2 MG/DL (0.2-1.0); BLOOD UREA NITROGEN 19 MG/DL (7-18); CALCIUM LEVEL 7.4 MG/DL (8.8-10.2); CARBON DIOXIDE LEVEL 24 MEQ/L (21-32); CHLORIDE LEVEL 108 MEQ/L (98-107); CREATININE FOR GFR 0.98 MG/DL (0.70-1.30); GLOMERULAR FILTRATION RATE > 60.0 (>49); GLUCOSE, FASTING 119 MG/DL (70-100); POTASSIUM SERUM 3.1 MEQ/L (3.5-5.1); SODIUM LEVEL 140 MEQ/L (136-145)
[2020-06-16 07:00] LABS: HEMATOCRIT 31.4 % (42.0-52.0); HEMOGLOBIN 9.7 g/dl (13.5-17.5); MEAN CORPUSCULAR HEMOGLOBIN 24.4 pg (27.0-33.0); MEAN CORPUSCULAR HGB CONC 30.9 g/dl (32.0-36.5); MEAN CORPUSCULAR VOLUME 78.9 fl (80.0-96.0); PLATELET COUNT, AUTOMATED 109 10^3/uL (150-450); RED BLOOD COUNT 3.98 10^6/uL (4.30-6.10); WHITE BLOOD COUNT 6.1 10^3/uL (4.0-10.0)
[2020-06-16] MEDS: ALBUTEROL SULFATE 2.5 MG/0.5 ML INH NEB SOLN NEB PRN (08:31)
[2020-06-16] MEDS ORDERED: POTASSIUM CHLORIDE 10% LIQ 20 MEQ/15 ML UDC PO SCH (09:00)
[2020-06-16] MEDS: ACETAMINOPH W/CODEINE #3 TAB UD GT SCH (09:00)
[2020-06-16] MEDS: HEPARIN SOD (PORCINE) 5000UNITS/ML 1ML VIAL/SYRINGE SC SCH ×2 (10:14→23:14)
[2020-06-16] MEDS: PANTOPRAZOLE 40MG VIAL (C9113 PER 1) IV SCH ×2 (10:15→23:14)
[2020-06-16] MEDS: SODIUM CHLORIDE 0.9% INJ 10 ML SYR IV SCH (10:15)
[2020-06-16] MEDS: ONDANSETRON 4 MG TAB GT PRN (10:31)
[2020-06-16 13:33] VITALS: BP 137/91
--- NOTE | 2020-06-16 14:56 | IPNPDOC ---
Date Seen The patient was seen on 06/16/20. Progress Note SUBJECTIVE: H/H remains stable, placed on KCL liquid BID as potassium low daily. Borderline temp at 100.1, concern with BID Tylenol with codeine is that it is masking a fever so switched to PRN. MRSA growing in lungs, will switch abx. Stopped IVFs, placed on incr amount of free water. He denies incr SOB, chest pain, n/v/d. OBJECTIVE: PHYSICAL EXAMINATION: VS: please see below CONSTITUTIONAL: No acute distress, resting comfortably, AAO x 3 EYES: PERRLA, EOM intact HENT, MOUTH: Normocephalic, atraumatic, moist mucous membranes, many oral secretions NECK: SUPPLE, no JVD, no lymphadenopathy, no carotid bruit CV: Regular rate and rhythm, S1S2 normal, no murmurs/rubs/gallops CHEST: port in right chest RESPIRATORY: Occasional rhonchi, no rales/rhonchi/wheezes GI: thin abd, feeding tube in left abd wall, BS positive in 4 quadrants, soft, nontender, nondistended, no rebound or guarding, no organomegaly : Deferred MUSCULOSKELETAL:thin ext, Normal ROM. No cyanosis, clubbing, swelling, joint deformity, extremity edema INTEGUMENTARY: Intact, no rashes, no lesions, no erythema NEUROLOGIC: Cranial Nerves II-XII are intact, no focal deficits PSYCHIATRIC: Mood and affect are normal LABORATORY DATA: Please see below MICROBIOLOGY: Sputum GS repeat: Gram + in pairs and chains Sputum CX repeated: MRSA IMAGING: CXR: Chronic stable changes. No obvious acute superimposed process. If the patient remains symptomatic consider chest CT for further investigation. ASSESSMENT: 59-year-old male with past medical history of throat cancer status post chemotherapy and radiation (completed 06/11), hypertension, hyperlipidemia, hypothyroidism admitted for acute kidney injury likely 2/2 to dehydration, dysphagia r/o aspiration, hypoxia. PLAN: MRSA pneumonia cannot r/o community acquired PNA vs. aspiration PNA OR BOTH -WBC wnl, immunocompromised with receiving chemo, radiation -Borderline fever 100.1 but concern is masking fevers with Tylenol scheduled, made it PRN today -Currently 98% on 1 L NC- attempting to wean off gradually -CT chest: Scattered superimposed alveolar infiltrates consistent with early pneumonia primarily involving the lower lobes and right middle lobe. Follow-up to resolution recommended. -Sputum Culture: MRSA -BCx NG to date -D/c Levofloxacin, cefepime and will change to vancomycin to cover MRSA. Aspiration precautions below, nebs PRN -Once fevers are confirmed to be done, can transition to PO abx Acute anemia likely dilutional to fluid administration -H/H remains stable -No s/s of bleeding -IVFs stopped today -Monitoring CBC daily Hypokalemia, acute -K low today at 3.1 and daily -Started on KCL 30 mEq BID -F/u labs and replace PRN Dysphagia with aspiration -Swallowing evaluation done today by therapist who knows patient from home therapy: high risk for aspiration, keep NPO, ice chips. States patient has histo ry of noncompliance at home. No additional imaging recommended at this time -Keep on continuous tube feedings for now and can likely increase free water instead of NSS by 06/14/20. -Concern is discharge, patient will likely need help with this at home more than what he is getting now. Discussed with PFS to see if more aid/help is available OR if another discharge plan is needed. -Elevate HOB, aspiration precautions, keep NPO except ice chips Increased oral secretions 2/2 to effects of radiation on his salivary glands -Per rad/onc this will improve over time. Please see their very detailed notes -C/w aggressive hydration, suction available at bedside -Avoiding scopalamine patch currently -Aspiration precautions Throat Cancer s/p chemotherapy and radiation (last session 06/07) -Rad/onc following, please refer to their note. Agrees with current plan -C/w antiemetics HTN -Stable HLD -Statin GI px -PPI BID DVT px -heparin Resolved issues: Low BP at outpatient office likely 2/2 to dehydration Acute kidney injury likely 2/2 to prerenal cause, dehydration DISPOSITION: Admitted to acute inpatient. Plan is hopefully home with services needed when medically improved. VS, I&O, 24H, Fishbone Vital Signs/I&O Vital Signs Date Time Temp Pulse Resp B/P (MAP) Pulse Ox O2 Delivery O2 Flow Rate FiO2 06/16/20 13:33 99.0 94 20 137/91 (106) 93 Room Air 06/16/20 06:00 1.0 I&O- Last 24 Hours up to 6 AM 06/16/20 06:00 Intake Total 3215 ml Output Total 2050 ml Balance 1165 ml Laboratory Data 24H LABS Laboratory Tests 2 06/16/20 05:54: Anion Gap 8, Glomerular Filtration Rate > 60.0, Calcium Level 7.4L, Total Bili morgan 0.2, Aspartate Amino Transf (AST/SGOT) 11, Alanine Aminotransferase (ALT/SGPT) 8L, Alkaline Phosphatase 88, Total Protein 6.0L, Albumin 2.0L, Albumin/Globulin Ratio 0.5 06/16/20 06:49: Nucleated Red Blood Cells % (auto) 0.0 CBC/BMP Laboratory Tests 06/16/20 05:54 06/16/20 06:49 Microbiology Microbiology 06/13/20 Gram Stain - Final, Complete 06/13/20 Sputum Culture - Final, Complete Staph.aureus Methicillin Resis 06/13/20 Gram Stain - Final, Complete 06/13/20 Sputum Culture - Final, Complete 06/12/20 Blood Culture - Preliminary, Resulted No Growth after 72 hours. All specime... 06/12/20 Blood Culture - Preliminary, Resulted No Growth after 72 hours. All specime... Current Medications Current Medications Medications (Trade) Dose Ordered Sig/Laney Route PRN Reason Start Time Stop Time Status Last Admin Dose Admin Acetaminophen (Tylenol Tab) 650 mg Q4HP PRN GT PAIN OR FEVER 06/16/20 06:15 06/16/20 06:14 Acetaminophen (Tylenol Tab) 650 mg Q4HP PRN PO PAIN OR FEVER 06/16/20 05:30 06/16/20 06:03 DC Acetaminophen/ Codeine Phosphate (Tylenol/Codeine #3 Tablet) 1 ea BID GT 06/12/20 21:00 06/15/20 21:50 Albuterol Sulfate (Proventil Neb) 2.5 mg Q2HP PRN NEB SOB/WHEEZING 06/12/20 15:45 06/16/20 08:31 Cefepime HCl 2 gm/ Dextrose 50 ml @ 100 mls/hr Q12H IV 06/12/20 20:00 06/16/20 08:26 DC 06/15/20 21:47 Doxazosin Mesylate (Cardura) 2 mg QHS GT 06/12/20 21:00 06/15/20 21:49 Emollient Cream (Vanicream) 1 dose BID TOP 06/12/20 21:00 06/12/20 21:19 DC Ferrous Sulfate (Ferrous Sulfate) 300 mg QHS GT 06/12/20 21:00 06/15/20 21:47 Ferrous Sulfate (Ferrous Sulfate) 325 mg QHS GT 06/12/20 21:00 06/12/20 20:37 DC Heparin Sodium (Heparin (Flush)) 500 units ASDIRECTED PRN IV SEE LABEL COMMENTS 06/12/20 21:30 Heparin Sodium (Heparin (Flush)) 500 units DAILY IV 06/13/20 09:00 06/16/20 10:15 Heparin Sodium (Porcine) (Heparin) 5,000 units Q12H SC 06/12/20 21:00 06/16/20 10:14 Home Med (Med Rec Complete!) ASDIRECTED XX 06/12/20 13:00 06/12/20 12:51 DC Levofloxacin 750 mg/IV Miscellaneous Supplies 150 ml @ 100 mls/hr Q48H IV 06/12/20 18:00 06/14/20 17:00 Omeprazole (PriLOSEC) 20 mg BID PO 06/12/20 21:00 Cancel Ondansetron HCl (Zofran) 8 mg TIDP PRN GT NAUSEA 06/12/20 14:15 06/16/20 10:31 Pantoprazole Sodium (Protonix) 40 mg BID IV 06/12/20 21:00 06/16/20 10:15 Potassium Chloride (Micro-K Extencaps) 30 meq Q2H PO 06/15/20 08:15 06/15/20 10:16 Cancel Potassium Chloride (Potassium Chloride Liquid) 30 meq BID PO 06/16/20 09:00 06/16/20 10:31 Prochlorperazine (Compazine) 10 mg Q6H PRN GT NAUSEA 06/12/20 14:15 Simvastatin (Zocor) 20 mg QHS GT 06/12/20 21:00 06/15/20 21:49 Sodium Chloride 1,000 ml @ 85 mls/hr [id number] IV 06/12/20 13:15 06/16/20 09:56 DC 06/15/20 21:44 Sodium Chloride 1,000 ml @ 200 mls/hr Q5H IV 06/12/20 11:30 06/12/20 13:35 DC 06/12/20 11:39 Sodium Chloride (Saline Lock Flush) 10 ml ASDIRECTED PRN IV SEE LABEL COMMENTS 06/12/20 21:30 Sodium Chloride (Saline Lock Flush) 10 ml DAILY IV 06/13/20 09:00 06/16/20 10:15 Allergies Coded Allergies: clindamycin (Verified Adverse Reaction, Unknown, rash, hives, 06/12/20) Heaven Hair MD Jun 16, 2020 14:56
[2020-06-16] MEDS ORDERED: ACETAMINOPH W/CODEINE #3 TAB UD GT PRN (15:03)
[2020-06-16] MEDS: VANCOMYCIN HCL 1,000 MG, VIAL MATE ADAPTER 1 EACH in D5W 250 ML IV SCH (16:18)
[2020-06-16] MEDS: LevoFLOXacin IV 750 MG in IV 1 EA IV SCH (17:30)
[2020-06-16] MEDS ORDERED: POTASSIUM CHLORIDE 10% LIQ 20 MEQ/15 ML UDC GT SCH (21:00)
[2020-06-16 22:00] VITALS: BP 131/87
[2020-06-16] MEDS: SIMVASTATIN 20 MG TAB GT SCH (23:12)
[2020-06-16] MEDS: DOXAZOSIN MESYLATE 1 MG TAB GT SCH (23:13)
[2020-06-16] MEDS: FERROUS SULFATE 300MG/5ML UDC LIQUID GT SCH (23:14)
[2020-06-17] MEDS: VANCOMYCIN HCL 1,000 MG, VIAL MATE ADAPTER 1 EACH in D5W 250 ML IV SCH ×2 (04:26→15:54)
[2020-06-17 06:00] VITALS: BP 131/86
[2020-06-17] MEDS: ONDANSETRON 4 MG TAB GT PRN (06:09)
[2020-06-17 06:51] LABS: HEMATOCRIT 31.9 % (42.0-52.0); HEMOGLOBIN 9.9 g/dl (13.5-17.5); MEAN CORPUSCULAR HEMOGLOBIN 24.7 pg (27.0-33.0); MEAN CORPUSCULAR VOLUME 79.6 fl (80.0-96.0); PLATELET COUNT, AUTOMATED 121 10^3/uL (150-450); RED BLOOD COUNT 4.01 10^6/uL (4.30-6.10); WHITE BLOOD COUNT 7.3 10^3/uL (4.0-10.0)
[2020-06-17] MEDS: SODIUM CHLORIDE 0.9% INJ 10 ML SYR IV PRN ×2 (06:53→14:12)
[2020-06-17 07:19] LABS: ALBUMIN 2.2 GM/DL (3.2-5.2); ALT/SGPT 9 U/L (12-78); BILIRUBIN,TOTAL 0.2 MG/DL (0.2-1.0); BLOOD UREA NITROGEN 18 MG/DL (7-18); CARBON DIOXIDE LEVEL 31 MEQ/L (21-32); CHLORIDE LEVEL 103 MEQ/L (98-107); CREATININE FOR GFR 0.97 MG/DL (0.70-1.30); GLOMERULAR FILTRATION RATE > 60.0 (>49); GLUCOSE, FASTING 99 MG/DL (70-100); POTASSIUM SERUM 3.3 MEQ/L (3.5-5.1); SODIUM LEVEL 139 MEQ/L (136-145); TOTAL PROTEIN 5.3 GM/DL (6.4-8.2)
[2020-06-17] MEDS: SODIUM CHLORIDE 0.9% INJ 10 ML SYR IV SCH (09:00)
[2020-06-17] MEDS: PANTOPRAZOLE 40MG VIAL (C9113 PER 1) IV SCH ×2 (09:22→21:27)
[2020-06-17] MEDS: KCL 10MEQ/100ML SWI (KRUN) 10 MEQ in IV 1 EA IV SCH ×4 (09:22→12:42)
[2020-06-17] MEDS: HEPARIN SOD (PORCINE) 5000UNITS/ML 1ML VIAL/SYRINGE SC SCH ×2 (09:23→21:29)
[2020-06-17 13:25] VITALS: BP 129/86
--- NOTE | 2020-06-17 13:33 | IPNPDOC ---
Date Seen The patient was seen on 06/17/20. Progress Note SUBJECTIVE: Switched to IV KCL instead of through feeding tube due to nausea with vomiting. No abdominal distention, having BMs, no residuals on exam by nursing so not concerned for abdominal obstruction/need for abd imaging. Patient has had no borderline temperatures since stopping BID tylenol with codeine. Patient told me today that "I will not leave the hospital until I will eat foot by the mouth." I told him that may be months or longer down the line and we need to get him discharged before then. He became tearful as he feels overwhelmed with all the issues he is having. He denies incr SOB, chest pain, n/v/d. OBJECTIVE: PHYSICAL EXAMINATION: VS: please see below CONSTITUTIONAL: No acute distress, resting comfortably, AAO x 3 EYES: PERRLA, EOM intact HENT, MOUTH: Normocephalic, atraumatic, moist mucous membranes, many oral secretions NECK: SUPPLE, no JVD, no lymphadenopathy, no carotid bruit CV: Regular rate and rhythm, S1S2 normal, no murmurs/rubs/gallops CHEST: port in right chest RESPIRATORY: Occasional rhonchi, no rales/rhonchi/wheezes GI: thin abd, feeding tube in left abd wall, BS positive in 4 quadrants, soft, nontender, nondistended, no rebound or guarding, no organomegaly : Deferred MUSCULOSKELETAL:thin ext, Normal ROM. No cyanosis, clubbing, swelling, joint deformity, extremity edema INTEGUMENTARY: Intact, no rashes, no lesions, no erythema NEUROLOGIC: Cranial Nerves II-XII are intact, no focal deficits PSYCHIATRIC: Mood and affect are normal LABORATORY DATA: Please see below MICROBIOLOGY: Sputum GS repeat: Gram + in pairs and chains Sputum CX repeated: MRSA BCx: NG after 5 days IMAGING: CXR: Chronic stable changes. No obvious acute superimposed process. If the patient remains symptomatic consider chest CT for further investigation. ASSESSMENT: 59-year-old male with past medical history of throat cancer status post chemotherapy and radiation (completed 06/11), hypertension, hyperlipidemia, hypothyroidism admitted for acute kidney injury likely 2/2 to dehydration, dysphagia r/o aspiration, hypoxia. PLAN: MRSA pneumonia cannot r/o community acquired PNA vs. aspiration PNA OR BOTH -WBC wnl, immunocompromised with receiving chemo, radiation -No borderline fevers for >24H after stopping tylenol with codeine -95% on RA- first day off supplemental O2 -Imaging above -Sputum Culture: MRSA, BCx NG to date -Day 2 IV vancomycin to cover MRSA. If remains without borderline or fevers for next 24 hours, will transition to feeding tube abx. Aspiration precautions below, nebs PRN Hypokalemia, acute -K low again today at 3.3 and daily -Started on KCL 30 mEq BID but patient gets nauseous with this at times -Will replace with 40mEq KCl IV today and try GT again tomorrow -F/u labs and replace PRN Acute anemia likely dilutional to fluid administration -H/H remains stable -No s/s of bleeding -Monitoring CBC daily Dysphagia with aspiration -Swallowing evaluation done today by therapist who knows patient from home therapy: high risk for aspiration, keep NPO, ice chips. States patient has history of noncompliance at home. No additional imaging recommended at this time -Keep on continuous tube feedings for now and can likely increase free water instead of NSS by 06/14/20. -Concern is discharge, patient will likely need help with this at home more than what he is getting now. Discussed with PFS to see if more aid/help is available OR if another discharge plan is needed. -Elevate HOB, aspiration precautions, keep NPO except ice chips Increased oral secretions 2/2 to effects of radiation on his salivary glands -Per rad/onc this will improve over time. Please see their very detailed notes -C/w aggressive hydration, suction available at bedside -Avoiding scopalamine patch currently -Aspiration precautions Throat Cancer s/p chemotherapy and radiation (last session 06/07) -Rad/onc following, please refer to their note. Agrees with current plan -C/w antiemetics HTN -Stable HLD -Statin GI px -PPI BID DVT px -heparin Resolved issues: Low BP at outpatient office likely 2/2 to dehydration Acute kidney injury likely 2/2 to prerenal cause, dehydration Hypokalemia, acute DISPOSITION: Admitted to acute inpatient. Plan is hopefully home with services needed vs. placement when medically improved. VS, I&O, 24H, Fishbone Vital Signs/I&O Vital Signs Date Time Temp Pulse Resp B/P (MAP) Pulse Ox O2 Delivery O2 Flow Rate FiO2 06/17/20 06:00 98.8 96 21 131/86 (101) 95 Room Air 06/16/20 06:00 1.0 I&O- Last 24 Hours up to 6 AM 06/17/20 06:00 Intake Total 2260 ml Output Total 2300 ml Balance -40 ml Laboratory Data 24H LABS Laboratory Tests 2 06/16/20 16:21: Methicillin-Resist S.aureus DNA PCR DETECTEDA 06/17/20 06:35: Nucleated Red Blood Cells % (auto) 0.0, Anion Gap 5L, Glomerular Filtration Rate > 60.0, Calcium Level 7.0L, Total Bilirubin 0.2, Aspartate Amino Transf (AST/SGOT) 11, Alanine Aminotransferase (ALT/SGPT) 9L, Alkaline Phosphatase 96, Total Protein 5.3L, Albumin 2.2L, Albumin/Globulin Ratio 0.7 CBC/BMP Laboratory Tests 06/17/20 06:35 Microbiology Microbiology 06/13/20 Gram Stain - Final, Complete 06/13/20 Sputum Culture - Final, Complete Staph.aureus Methicillin Resis 06/13/20 Gram Stain - Final, Complete 06/13/20 Sputum Culture - Final, Complete 06/12/20 Blood Culture - Final, Complete NO GROWTH AFTER 5 DAYS 06/12/20 Blood Culture - Final, Complete NO GROWTH AFTER 5 DAYS Current Medications Current Medications Medications (Trade) Dose Ordered Sig/Laney Route PRN Reason Start Time Stop Time Status Last Admin Dose Admin Acetaminophen (Tylenol Tab) 650 mg Q4HP PRN GT PAIN OR FEVER 06/16/20 06:15 06/16/20 06:14 Acetaminophen (Tylenol Tab) 650 mg Q4HP PRN PO PAIN OR FEVER 06/16/20 05:30 06/16/20 06:03 DC Acetaminophen/ Codeine Phosphate (Tylenol/Codeine #3 Tablet) 1 ea BID GT 06/12/20 21:00 06/16/20 14:53 DC 06/15/20 21:50 Acetaminophen/ Codeine Phosphate (Tylenol/Codeine #3 Tablet) 1 ea BIDP PRN GT MODERATE PAIN (PS 5-7) 06/16/20 15:03 Albuterol Sulfate (Proventil Neb) 2.5 mg Q2HP PRN NEB SOB/WHEEZING 06/12/20 15:45 06/16/20 08:31 Cefepime HCl 2 gm/ Dextrose 50 ml @ 100 mls/hr Q12H IV 06/12/20 20:00 06/16/20 08:26 DC 06/15/20 21:47 Doxazosin Mesylate (Cardura) 2 mg QHS GT 06/12/20 21:00 06/16/20 23:13 Emollient Cream (Vanicream) 1 dose BID TOP 06/12/20 21:00 06/12/20 21:19 DC Ferrous Sulfate (Ferrous Sulfate) 300 mg QHS GT 06/12/20 21:00 06/16/20 23:14 Ferrous Sulfate (Ferrous Sulfate) 325 mg QHS GT 06/12/20 21:00 06/12/20 20:37 DC Heparin Sodium (Heparin (Flush)) 500 units ASDIRECTED PRN IV SEE LABEL COMMENTS 06/12/20 21:30 06/17/20 06:53 Heparin Sodium (Heparin (Flush)) 500 units DAILY IV 06/13/20 09:00 06/16/20 10:15 Heparin Sodium (Porcine) (Heparin) 5,000 units Q12H SC 06/12/20 21:00 06/17/20 09:23 Home Med (Med Rec Complete!) ASDIRECTED XX 06/12/20 13:00 06/12/20 12:51 DC Levofloxacin 750 mg/IV Miscellaneous Supplies 150 ml @ 100 mls/hr Q48H IV 06/12/20 18:00 06/16/20 18:08 DC 06/16/20 17:30 Omeprazole (PriLOSEC) 20 mg BID PO 06/12/20 21:00 Cancel Ondansetron HCl (Zofran) 8 mg TIDP PRN GT NAUSEA 06/12/20 14:15 06/17/20 06:09 Pantoprazole Sodium (Protonix) 40 mg BID IV 06/12/20 21:00 06/17/20 09:22 Potassium Chloride 10 meq/ IV Miscellaneous Supplies 100 ml @ 100 mls/hr Q1H IV 06/17/20 10:00 06/17/20 13:59 06/17/20 12:42 Potassium Chloride (Micro-K Extencaps) 30 meq Q2H PO 06/15/20 08:15 06/15/20 10:16 Cancel Potassium Chloride (Potassium Chloride Liquid) 30 meq BID GT 06/16/20 21:00 06/17/20 08:26 DC Potassium Chloride (Potassium Chloride Liquid) 30 meq BID PO 06/16/20 09:00 06/16/20 23:01 DC 06/16/20 10:31 Prochlorperazine (Compazine) 10 mg Q6H PRN GT NAUSEA 06/12/20 14:15 Simvastatin (Zocor) 20 mg QHS GT 06/12/20 21:00 06/16/20 23:12 Sodium Chloride 1,000 ml @ 85 mls/hr [id number] IV 06/12/20 13:15 06/16/20 09:56 DC 06/15/20 21:44 Sodium Chloride 1,000 ml @ 200 mls/hr Q5H IV 06/12/20 11:30 06/12/20 13:35 DC 06/12/20 11:39 Sodium Chloride (Saline Lock Flush) 10 ml ASDIRECTED PRN IV SEE LABEL COMMENTS 06/12/20 21:30 06/17/20 06:53 Sodium Chloride (Saline Lock Flush) 10 ml DAILY IV 06/13/20 09:00 06/16/20 10:15 Vancomycin HCl 1000 mg/IV Miscellaneous Supplies 1 each/ Dextrose 270 ml @ 270 mls/hr Q12H IV 06/16/20 16:00 06/17/20 04:26 Allergies Coded Allergies: clindamycin (Verified Adverse Reaction, Unknown, rash, hives, 06/12/20) Heaven Hair MD Jun 17, 2020 13:33
[2020-06-17] MEDS: ALBUTEROL SULFATE 2.5 MG/0.5 ML INH NEB SOLN NEB PRN (16:02)
[2020-06-17] MEDS: SIMVASTATIN 20 MG TAB GT SCH (21:27)
[2020-06-17] MEDS: FERROUS SULFATE 300MG/5ML UDC LIQUID GT SCH (21:28)
[2020-06-17] MEDS: DOXAZOSIN MESYLATE 1 MG TAB GT SCH (21:28)
[2020-06-17 22:00] VITALS: BP 122/84
[2020-06-18] MEDS ORDERED: SALIVA SUBSTITUTE(MOUTHKOTE) BTL MT PRN (00:45)
[2020-06-18] MEDS: VANCOMYCIN HCL 1,000 MG, VIAL MATE ADAPTER 1 EACH in D5W 250 ML IV SCH (04:28)
[2020-06-18 06:00] VITALS: BP 118/83
[2020-06-18 07:03] LABS: HEMATOCRIT 33.9 % (42.0-52.0); HEMOGLOBIN 10.4 g/dl (13.5-17.5); MEAN CORPUSCULAR HEMOGLOBIN 24.8 pg (27.0-33.0); MEAN CORPUSCULAR HGB CONC 30.7 g/dl (32.0-36.5); MEAN CORPUSCULAR VOLUME 80.9 fl (80.0-96.0); PLATELET COUNT, AUTOMATED 119 10^3/uL (150-450); RED BLOOD COUNT 4.19 10^6/uL (4.30-6.10); WHITE BLOOD COUNT 8.1 10^3/uL (4.0-10.0)
[2020-06-18 07:34] LABS: BLOOD UREA NITROGEN 18 MG/DL (7-18); CALCIUM LEVEL 7.5 MG/DL (8.8-10.2); CARBON DIOXIDE LEVEL 32 MEQ/L (21-32); CHLORIDE LEVEL 103 MEQ/L (98-107); CREATININE FOR GFR 1.09 MG/DL (0.70-1.30); GLOMERULAR FILTRATION RATE > 60.0 (>49); GLUCOSE, FASTING 99 MG/DL (70-100); POTASSIUM SERUM 3.9 MEQ/L (3.5-5.1); SODIUM LEVEL 140 MEQ/L (136-145)
[2020-06-18] MEDS ORDERED: BACTRIM 160MG/800MG DS TAB PO SCH (09:00)
[2020-06-18] MEDS: PANTOPRAZOLE 40MG VIAL (C9113 PER 1) IV SCH ×2 (09:57→20:29)
[2020-06-18] MEDS: SODIUM CHLORIDE 0.9% INJ 10 ML SYR IV SCH (09:58)
[2020-06-18 14:00] VITALS: BP 118/83
--- NOTE | 2020-06-18 16:00 | IPNPDOC ---
Date Seen The patient was seen on 06/18/20. Progress Note SUBJECTIVE: Potassium wnl. Switched to PO bactrim from IV vancomycin. Discussed situation with PFS. Overall improved but placement is likely. He denies incr SOB, chest pain, n/v/d. OBJECTIVE: PHYSICAL EXAMINATION: VS: please see below CONSTITUTIONAL: No acute distress, resting comfortably, AAO x 3 EYES: PERRLA, EOM intact HENT, MOUTH: Normocephalic, atraumatic, moist mucous membranes, many oral secretions NECK: SUPPLE, no JVD, no lymphadenopathy, no carotid bruit CV: Regular rate and rhythm, S1S2 normal, no murmurs/rubs/gallops CHEST: port in right chest RESPIRATORY: Occasional rhonchi, no rales/rhonchi/wheezes GI: thin abd, feeding tube in left abd wall, BS positive in 4 quadrants, soft, nontender, nondistended, no rebound or guarding, no organomegaly : Deferred MUSCULOSKELETAL:thin ext, Normal ROM. No cyanosis, clubbing, swelling, joint deformity, extremity edema INTEGUMENTARY: Intact, no rashes, no lesions, no erythema NEUROLOGIC: Cranial Nerves II-XII are intact, no focal deficits PSYCHIATRIC: Mood and affect are normal LABORATORY DATA: Please see below MICROBIOLOGY: Sputum GS repeat: Gram + in pairs and chains Sputum CX repeated: MRSA BCx: NG after 5 days IMAGING: CXR: Chronic stable changes. No obvious acute superimposed process. If the patient remains symptomatic consider chest CT for further investigation. ASSESSMENT: 59-year-old male with past medical history of throat cancer status post chemotherapy and radiation (completed 06/11), hypertension, hyperlipidemia, hypothyroidism admitted for acute kidney injury likely 2/2 to dehydration, dysphagia r/o aspiration, hypoxia. PLAN: MRSA pneumonia cannot r/o community acquired PNA vs. aspiration PNA (food, secretions) OR BOTH -WBC wnl, immunocompromised with receiving chemo, radiation -No borderline fevers for >48H after stopping tylenol with codeine -95% on RA-2 L NC -Imaging above -Sputum Culture: MRSA, BCx NG to date -Received 3 days IV vancomycin, changed to bactrim today. Hypokalemia, acute-resolved -K wnl today -Had n/v with KCL in GT so needed to give IV 06/17/20. -F/u labs and replace PRN Acute anemia likely dilutional to fluid administration -H/H continues to improve after stopping fluids -S/p 2 units PRBC this admission -No s/s of bleeding -Monitoring CBC daily Dysphagia with aspiration -Swallowing evaluation done today by therapist who knows patient from home therapy: high risk for aspiration, keep NPO, ice chips. States patient has history of noncompliance at home. No additional imaging recommended at this time -Concern is discharge. Discussed with PFS to see if more aid/help is available at home OR if placement is needed -Elevate HOB, aspiration precautions, keep NPO except ice chips. Keep on continuous tube feedings for now. Increased oral secretions 2/2 to effects of radiation on his salivary glands -Per rad/onc this will improve over time. Please see their very detailed notes -C/w aggressive hydration, suction available at bedside, saliva substitute -Avoiding scopalamine patch currently -Aspiration precautions Acute thrombocytopenia -No concern for HIT currently but has continued to drop since admission -D/c heparin today -CBC daily -Currently no s/s of bleed, rash Throat Cancer s/p chemotherapy and radiation (last session 06/07) -Rad/onc following (Dr. Martínez) and has seen this admission, please refer to their note. Agrees with current plan -C/w antiemetics HTN -Stable HLD -Statin GI px -PPI BID DVT px -teds/scd. Stopped heparin 2/2 to thrombocytopenia Resolved issues: Low BP at outpatient office likely 2/2 to dehydration Acute kidney injury likely 2/2 to prerenal cause, dehydration Hypokalemia, acute DISPOSITION: Admitted to acute inpatient. Plan is hopefully home with services needed vs. placement when medically improved. Made ALC status today. VS, I&O, 24H, Fishbone Vital Signs/I&O Vital Signs Date Time Temp Pulse Resp B/P (MAP) Pulse Ox O2 Delivery O2 Flow Rate FiO2 06/18/20 14:00 99.6 92 18 118/83 (95) 96 Nasal Cannula 2.0 I&O- Last 24 Hours up to 6 AM 06/18/20 05:59 Intake Total 2030 ml Output Total 2125 ml Balance -95 ml Laboratory Data 24H LABS Laboratory Tests 2 06/18/20 06:57: Nucleated Red Blood Cells % (auto) 0.0, Anion Gap 5L, Glomerular Filtration Rate > 60.0, Calcium Level 7.5L CBC/BMP Laboratory Tests 06/18/20 06:57 Microbiology Microbiology 06/13/20 Gram Stain - Final, Complete 06/13/20 Sputum Culture - Final, Complete Staph.aureus Methicillin Resis 06/13/20 Gram Stain - Final, Complete 06/13/20 Sputum Culture - Final, Complete 06/12/20 Blood Culture - Final, Complete NO GROWTH AFTER 5 DAYS 06/12/20 Blood Culture - Final, Complete NO GROWTH AFTER 5 DAYS Current Medications Current Medications Medications (Trade) Dose Ordered Sig/Laney Route PRN Reason Start Time Stop Time Status Last Admin Dose Admin Acetaminophen (Tylenol Tab) 650 mg Q4HP PRN GT PAIN OR FEVER 06/16/20 06:15 06/16/20 06:14 Acetaminophen (Tylenol Tab) 650 mg Q4HP PRN PO PAIN OR FEVER 06/16/20 05:30 06/16/20 06:03 DC Acetaminophen/ Codeine Phosphate (Tylenol/Codeine #3 Tablet) 1 ea BID GT 06/12/20 21:00 06/16/20 14:53 DC 06/15/20 21:50 Acetaminophen/ Codeine Phosphate (Tylenol/Codeine #3 Tablet) 1 ea BIDP PRN GT MODERATE PAIN (PS 5-7) 06/16/20 15:03 Albuterol Sulfate (Proventil Neb) 2.5 mg Q2HP PRN NEB SOB/WHEEZING 06/12/20 15:45 06/17/20 16:02 Cefepime HCl 2 gm/ Dextrose 50 ml @ 100 mls/hr Q12H IV 06/12/20 20:00 06/16/20 08:26 DC 06/15/20 21:47 Doxazosin Mesylate (Cardura) 2 mg QHS GT 06/12/20 21:00 06/17/20 21:28 Emollient Cream (Vanicream) 1 dose BID TOP 06/12/20 21:00 06/12/20 21:19 DC Ferrous Sulfate (Ferrous Sulfate) 300 mg QHS GT 06/12/20 21:00 06/17/20 21:28 Ferrous Sulfate (Ferrous Sulfate) 325 mg QHS GT 06/12/20 21:00 06/12/20 20:37 DC Heparin Sodium (Heparin (Flush)) 500 units ASDIRECTED PRN IV SEE LABEL COMMENTS 06/12/20 21:30 1/4/21 05:42 Heparin Sodium (Heparin (Flush)) 500 units DAILY IV 06/13/20 09:00 06/18/20 09:58 Heparin Sodium (Porcine) (Heparin) 5,000 units Q12H SC 06/12/20 21:00 06/18/20 08:16 DC 06/17/20 21:29 Home Med (Med Rec Complete!) ASDIRECTED XX 06/12/20 13:00 06/12/20 12:51 DC Levofloxacin 750 mg/IV Miscellaneous Supplies 150 ml @ 100 mls/hr Q48H IV 06/12/20 18:00 06/16/20 18:08 DC 06/16/20 17:30 Omeprazole (PriLOSEC) 20 mg BID PO 06/12/20 21:00 Cancel Ondansetron HCl (Zofran) 8 mg TIDP PRN GT NAUSEA 06/12/20 14:15 06/17/20 06:09 Pantoprazole Sodium (Protonix) 40 mg BID IV 06/12/20 21:00 06/18/20 09:57 Potassium Chloride 10 meq/ IV Miscellaneous Supplies 100 ml @ 100 mls/hr Q1H IV 06/17/20 10:00 06/17/20 13:59 DC 06/17/20 12:42 Potassium Chloride (Micro-K Extencaps) 30 meq Q2H PO 06/15/20 08:15 06/15/20 10:16 Cancel Potassium Chloride (Potassium Chloride Liquid) 30 meq BID GT 06/16/20 21:00 06/17/20 08:26 DC Potassium Chloride (Potassium Chloride Liquid) 30 meq BID PO 06/16/20 09:00 06/16/20 23:01 DC 06/16/20 10:31 Prochlorperazine (Compazine) 10 mg Q6H PRN GT NAUSEA 06/12/20 14:15 Saliva Substitute (Mouthkote) 1 sprays Q2HP PRN MT dry mouth 06/18/20 00:45 Simvastatin (Zocor) 20 mg QHS GT 06/12/20 21:00 06/17/20 21:27 Sodium Chloride 1,000 ml @ 85 mls/hr [id number] IV 06/12/20 13:15 06/16/20 09:56 DC 06/15/20 21:44 Sodium Chloride 1,000 ml @ 200 mls/hr Q5H IV 06/12/20 11:30 06/12/20 13:35 DC 06/12/20 11:39 Sodium Chloride (Saline Lock Flush) 10 ml ASDIRECTED PRN IV SEE LABEL COMMENTS 06/12/20 21:30 06/17/20 14:12 Sodium Chloride (Saline Lock Flush) 10 ml DAILY IV 06/13/20 09:00 06/18/20 09:58 Trimethoprim/ Sulfamethoxazole (Bactrim Ds, Septra Ds 160mg/ 800mg) 1 tab BID PO 06/18/20 09:00 06/18/20 12:26 Vancomycin HCl 1000 mg/IV Miscellaneous Supplies 1 each/ Dextrose 270 ml @ 270 mls/hr Q12H IV 06/16/20 16:00 06/18/20 11:43 DC 06/18/20 04:28 Allergies Coded Allergies: clindamycin (Verified Adverse Reaction, Unknown, rash, hives, 06/12/20) Heaven Hair MD Jun 18, 2020 16:00
[2020-06-18] MEDS: FERROUS SULFATE 300MG/5ML UDC LIQUID GT SCH (20:26)
[2020-06-18] MEDS: DOXAZOSIN MESYLATE 1 MG TAB GT SCH (20:28)
[2020-06-18] MEDS: SIMVASTATIN 20 MG TAB GT SCH (20:28)
[2020-06-18] MEDS: BACTRIM 160MG/800MG DS TAB GT SCH (20:28)
[2020-06-18] MEDS: SODIUM CHLORIDE 0.9% INJ 10 ML SYR IV PRN (20:29)
[2020-06-18 22:00] VITALS: BP 114/81
[2020-06-19 06:00] VITALS: BP 94/66
[2020-06-19 07:01] LABS: HEMATOCRIT 31.8 % (42.0-52.0); HEMOGLOBIN 9.7 g/dl (13.5-17.5); MEAN CORPUSCULAR HEMOGLOBIN 24.7 pg (27.0-33.0); MEAN CORPUSCULAR HGB CONC 30.5 g/dl (32.0-36.5); MEAN CORPUSCULAR VOLUME 81.1 fl (80.0-96.0); PLATELET COUNT, AUTOMATED 128 10^3/uL (150-450); RED BLOOD COUNT 3.92 10^6/uL (4.30-6.10); WHITE BLOOD COUNT 6.7 10^3/uL (4.0-10.0)
[2020-06-19 07:28] LABS: BLOOD UREA NITROGEN 22 MG/DL (7-18); CALCIUM LEVEL 7.6 MG/DL (8.8-10.2); CARBON DIOXIDE LEVEL 31 MEQ/L (21-32); CHLORIDE LEVEL 104 MEQ/L (98-107); CREATININE FOR GFR 1.15 MG/DL (0.70-1.30); GLOMERULAR FILTRATION RATE > 60.0 (>49); GLUCOSE, FASTING 109 MG/DL (70-100); POTASSIUM SERUM 3.5 MEQ/L (3.5-5.1); SODIUM LEVEL 138 MEQ/L (136-145)
[2020-06-19] MEDS: BACTRIM 160MG/800MG DS TAB GT SCH ×2 (09:34→21:36)
[2020-06-19] MEDS: PANTOPRAZOLE 40MG VIAL (C9113 PER 1) IV SCH ×2 (09:34→21:36)
[2020-06-19] MEDS: SODIUM CHLORIDE 0.9% INJ 10 ML SYR IV SCH (09:35)
[2020-06-19] MEDS ORDERED: VARIBAR PUDDING 40% w/v 230ML TUBE As Ordered ONE (13:22)
[2020-06-19] MEDS ORDERED: VARIBAR NECTAR 40% w/v 240ML SUSP BTL As Ordered ONE (13:22)
[2020-06-19] MEDS ORDERED: E-Z-PAQUE 96% w/w SUSP 176GM BTL As Ordered ONE (13:22)
[2020-06-19 14:00] VITALS: BP 116/83
--- NOTE | 2020-06-19 16:08 | REP ---
INDICATION: asp pneumonia. COMPARISON: None. TECHNIQUE: The procedure was performed by ISACC Braun, under the direct supervision of . The procedure was performed with Carmen Livingston from speech pathology present. 5 ml aliquots of thin, nectar thick, and honey thick consistency barium was administered. FINDINGS: Penetration was visualized with nectar thick consistency barium. The detailed report of this examination will be provided by speech pathology. IMPRESSION: Penetration was visualized with nectar thick consistency barium, a complete report will be provided by speech pathology. 2.0 minutes of fluoroscopy time was utilized for this procedure. Some fluoroscopic images are performed with last image hold technology. These images require no additional radiation <Electronically signed by Dede Mehta > 06/19/20 [id number] <Electronically signed by Festus Jones > 06/19/20 [id number]
[2020-06-19] MEDS: DOXAZOSIN MESYLATE 1 MG TAB GT SCH (21:35)
[2020-06-19] MEDS: FERROUS SULFATE 300MG/5ML UDC LIQUID GT SCH (21:36)
[2020-06-19] MEDS: SIMVASTATIN 20 MG TAB GT SCH (21:36)
[2020-06-19] MEDS: SODIUM CHLORIDE 0.9% INJ 10 ML SYR IV PRN (21:36)
[2020-06-19] MEDS ORDERED: RAMELTEON 8 MG TAB (ROZEREM) PO PRN (23:15)
[2020-06-20 06:00] VITALS: BP 99/56
[2020-06-20] MEDS: PANTOPRAZOLE 40MG VIAL (C9113 PER 1) IV SCH ×2 (10:01→21:32)
[2020-06-20] MEDS: BACTRIM 160MG/800MG DS TAB GT SCH ×2 (10:01→21:33)
[2020-06-20] MEDS: SODIUM CHLORIDE 0.9% INJ 10 ML SYR IV SCH (10:02)
[2020-06-20] MEDS: FERROUS SULFATE 300MG/5ML UDC LIQUID GT SCH (21:33)
[2020-06-20] MEDS: SIMVASTATIN 20 MG TAB GT SCH (21:33)
[2020-06-20 21:35] VITALS: BP 127/85
[2020-06-20] MEDS: DOXAZOSIN MESYLATE 1 MG TAB GT SCH (21:35)
[2020-06-20] MEDS: SODIUM CHLORIDE 0.9% INJ 10 ML SYR IV PRN (21:35)
[2020-06-21 06:00] VITALS: BP 118/78
[2020-06-21] MEDS ORDERED: CARD1TAB4 GT (07:32)
[2020-06-21] MEDS ORDERED: SULF1TAB93 GT (07:32)
[2020-06-21] MEDS ORDERED: SIMV20TA22 GT (07:32)
[2020-06-21] MEDS ORDERED: OMEP-312 PO (07:32)
[2020-06-21] MEDS ORDERED: RAME8TAB2 PO (07:32)
[2020-06-21] MEDS: BACTRIM 160MG/800MG DS TAB GT SCH (09:09)
[2020-06-21] MEDS: PANTOPRAZOLE 40MG VIAL (C9113 PER 1) IV SCH (09:09)
[2020-06-21] MEDS: SODIUM CHLORIDE 0.9% INJ 10 ML SYR IV SCH (09:10)
--- NOTE | 2020-06-21 16:27 | DS.PDOC ---
Discharge Summary General Date of Admission Jun 12, 2020 at 13:12 Date of Discharge 06/21/20 Discharge Summary PROCEDURES PERFORMED DURING STAY: [None]. ADMITTING DIAGNOSES: #MRSA pneumonia cannot r/o community acquired PNA vs. aspiration PNA (food, secretions) OR BOTH #Hypokalemia #Acute anemia likely dilutional to fluid administration #Dysphagia with aspiration #Increased oral secretions 2/2 to effects of radiation on his salivary glands #Acute thrombocytopenia #Throat Cancer s/p chemotherapy and radiation (last session 06/07) #HTN #HLD SECONDARY DIAGNOSES: Throat CA hypertension hypertriglyceridemia hypothyroid hemorrhoids TBI COMPLICATIONS/CHIEF COMPLAINT: Acute Kidney Injury. HISTORY OF PRESENT ILLNESS: Agent is a 59-year-old male with past medical history of throat cancer status post chemotherapy and radiation (completed 06/11), hypertension, hyperlipidemia, hypothyroidism who presented to [facility] emergency room from oncology office today for low blood pressure. According to oncologist he has lost 5 kg from his appointment the week prior. He complains of increased lethargy, increased phlegm production. He denies shortness of breath, chest pain, fevers, chills, nausea, vomiting, diarrhea. He states he is fed 3 meals a day plus water through his PEG tube and he also drinks approximately 3 bottles of water a day. He states he knows he is supposed to drink up to 5 bottles of water a day. According to his sister, [place], he is supposed to eat whatever he can orally but if he cannot then he should be getting nutrition through his feeding tube. She states he is likely not getting enough nutrition, fluid at home. Note: last week at his oncology appt they had to hang fluids in the [facility] due to dehydration. His appetite has been worsening. His sister helps him with his feedings at times, he has a home nurse that comes once a week. In the ER, VS showed BP stable 114/66, 86% RA, placed on 4 L NC, HR 109. CXR neg. WBC 15.5. K 3.2, Cr 2.2 (baseline wnl), BS 129, COVID neg. His sister was called and his situation above was discussed. CT chest was ordered and was pending. Patient was admitted for acute kidney injury likely 2/2 to dehydration, dysphagia r/o aspiration, hypoxia. HOSPITAL COURSE: 59-year-old male with past medical history of throat cancer status post chemotherapy and radiation (completed 06/11), hypertension, hyperlipidemia, hypothyroidism admitted for acute kidney injury likely 2/2 to dehydration, dysphagia r/o aspiration, hypoxia. #MRSA pneumonia cannot r/o community acquired PNA vs. aspiration PNA (food, secretions) OR BOTH -Received 3 days IV vancomycin, changed to bactrim continue on discharge #Hypokalemia, acute-resolved #Acute anemia likely dilutional to fluid administration -H/H continues to improve after stopping fluids -S/p 2 units PRBC this admission -No s/s of bleeding #Dysphagia with aspiration -Elevate HOB, aspiration precautions, keep NPO except ice chips. Keep on continuous tube feedings #Increased oral secretions 2/2 to effects of radiation on his salivary glands -Per rad/onc this will improve over time. Please see their very detailed notes -C/w aggressive hydration, suction available at bedside, saliva substitute -Aspiration precautions #Acute thrombocytopenia -Currently no s/s of bleed, rash #Throat Cancer s/p chemotherapy and radiation (last session 06/07) -Rad/onc following (Dr. Martínez) and has seen this admission, please refer to their note. Agrees with current plan -C/w antiemetics #HTN -Stable #HLD -Statin DISCHARGE MEDICATIONS: Please see below. ALLERGIES: Please see below. PHYSICAL EXAMINATION ON DISCHARGE: VS: please see below CONSTITUTIONAL: No acute distress, resting comfortably, AAO x 3 EYES: PERRLA, EOM intact HENT, MOUTH: Normocephalic, atraumatic, moist mucous membranes, many oral secretions NECK: SUPPLE, no JVD, no lymphadenopathy, no carotid bruit CV: Regular rate and rhythm, S1S2 normal, no murmurs/rubs/gallops CHEST: port in right chest RESPIRATORY: Occasional rhonchi, no rales/rhonchi/wheezes GI: thin abd, feeding tube in left abd wall, BS positive in 4 quadrants, soft, nontender, nondistended, no rebound or guarding, no organomegaly : Deferred MUSCULOSKELETAL:thin ext, Normal ROM. No cyanosis, clubbing, swelling, joint deformity, extremity edema INTEGUMENTARY: Intact, no rashes, no lesions, no erythema NEUROLOGIC: Cranial Nerves II-XII are intact, no focal deficits PSYCHIATRIC: Mood and affect are normal LABORATORY DATA: Please see below. DISPOSITION: Snf Other [facility]. DISCHARGE INSTRUCTIONS: Follow up PCP in 3-5 days TIME SPENT ON DISCHARGE: 35 minutes. Vital Signs/I&Os Vital Signs Date Time Temp Pulse Resp B/P (MAP) Pulse Ox O2 Delivery O2 Flow Rate FiO2 06/21/20 06:00 98.1 85 18 118/78 (91) 93 Room Air 06/20/20 06:00 2.0 I&O- Last 24 Hours up to 6 AM 06/21/20 06:00 Intake Total 2140 ml Output Total 1175 ml Balance 965 ml Laboratory Data Labs 24H Laboratory Tests 2 06/20/20 18:43: Coronavirus (COVID-19)(PCR) NEGATIVE Microbiology Microbiology 06/13/20 Gram Stain - Final, Complete 06/13/20 Sputum Culture - Final, Complete Staph.aureus Methicillin Resis 06/13/20 Gram Stain - Final, Complete 06/13/20 Sputum Culture - Final, Complete 06/12/20 Blood Culture - Final, Complete NO GROWTH AFTER 5 DAYS 06/12/20 Blood Culture - Final, Complete NO GROWTH AFTER 5 DAYS Discharge Medications Scheduled Doxazosin Mesylate (Cardura) 1 Mg Tablet, 2 MG GT QHS Omeprazole Magnesium (Omeprazole Magnesium) 20 Mg Capsule.dr, 20 MG PO DAILY Simvastatin (Simvastatin) 20 Mg Tablet, 20 MG GT QHS Sulfamethoxazole/Trimethoprim (Sulfamethoxazole-Tmp Ds Tablet) 1 Each Tablet, 1 TAB GT BID Scheduled PRN Ramelteon (Ramelteon) 8 Mg Tablet, 8 MG PO QHS PRN for INSOMNIA Allergies Coded Allergies: clindamycin (Verified Adverse Reaction, Unknown, rash, hives, 06/12/20) LANCE DUONG MD Jun 21, 2020 16:27
== END 2020-06-21 13:00 | DRG 178 ==
LOC: M ED 10:56 → M ED INP 13:12 → M MSPAV 17:10
PROVIDERS: ADMIT Internal Medicine; ATTEND Internal Medicine
PROC: 30233N1 Transfusion of Nonautologous Red Blood Cells into Peripheral Vein, Percutaneous Approach (ICD-10-PCS; principal; 2020-06-14)
DX: J15.212 Pneumonia due to Methicillin resistant Staphylococcus aureus (principal); N17.9 Acute kidney failure, unspecified; I10 Essential (primary) hypertension; E78.5 Hyperlipidemia, unspecified; E03.9 Hypothyroidism, unspecified; J69.0 Pneumonitis due to inhalation of food and vomit; C14.0 Malignant neoplasm of pharynx, unspecified; D69.6 Thrombocytopenia, unspecified; E86.0 Dehydration; R13.10 Dysphagia, unspecified; R09.02 Hypoxemia; Z20.822 Contact with and (suspected) exposure to COVID-19; E87.6 Hypokalemia; Z92.3 Personal history of irradiation; Z92.21 Personal history of antineoplastic chemotherapy; Z87.820 Personal history of traumatic brain injury; Z93.1 Gastrostomy status

== ENCOUNTER → 2020-09-17 | Outpatient (CLI) | payer MEDICARE, BC, OTHER ==
[~2020-09-17] MED LIST changes: +ACET-645 PO; +CARD1TAB4 GT; +FERR1TAB8 PO; +OMEP-312 PO; +RAME8TAB2 PO; +SIMV20TA22 GT; +SULF1TAB93 GT
--- NOTE | 2020-09-18 19:21 | REP ---
INDICATION: RESTAGING TONSIL CANCER C09.0. COMPARISON: Whole-body PET-CT scan dated 03/20/2020. TECHNIQUE: Whole-body PET-CT scan from the skull base to the upper thighs with 15.4 mCi of F 18 FDG. FINDINGS: The focal uptake in the right pharyngeal wall has significantly decreased in size and uptake wall now with a standard uptake value of 4.94. Additionally there is uptake along the right side of the tongue with a standard uptake value of 4.63. No other hypermetabolic uptake are identified except for artifactual uptake in the vocal cords. Chest: There is a new hypermetabolic focus posteriorly in the lower lobe of the right lung with a standard uptake value of 4.[address] accompanying the PET scan this appears as a ground-glass density rather than a solid nodule. This may represent an infiltrate rather than neoplasm. Follow-up is recommended. There is a smaller zone of focal uptake anteriorly in the right upper lobe with a standard uptake value of 2.14, non hypermetabolic. There is a right IJ Tliltf-U-Egfu catheter with the tip in the superior vena cava in satisfactory position. There are rib deformities anteriorly on right from old prior trauma. Abdomen, pelvis and upper thighs There is nonspecific bowel uptake. There are no hypermetabolic foci. IMPRESSION: There is hypermetabolic uptake in the right pharyngeal wall has significantly decreased in size and uptake. However, there is now uptake along the tongue on the right. There is a hypermetabolic focus in the right lung lower lobe posteriorly, appearing as a large ground-glass density on the CT accompanying the PET scan. There is a smaller zone of focal uptake anteriorly in the right upper lobe that is non hypermetabolic. <Electronically signed by Festus Smyth > 09/18/20 [id number]
== END ==
LOC: M PLARAD 14:16
PROVIDERS: ATTEND General Practice
DX: R93.3 Abnormal findings on diagnostic imaging of other parts of digestive tract (principal); R91.8 Other nonspecific abnormal finding of lung field; C09.0 Malignant neoplasm of tonsillar fossa
CPT/HCPCS: 78815; A9552

== ENCOUNTER → 2020-09-25 | Outpatient (CLI) | payer MEDICARE, BC, OTHER ==
[~2020-09-25] MED LIST changes: +ACET1TAB55 PO; +APAP; +CODEINE; +GUAIDM5UD PO; +LIDO2SOL17 PO; +MAG-LIQ2 PO; +MIRT1TAB15 PO; +ONDA4TAB6 PO; +SCOP1PAT2 TOP; +TRAZ-186 PO; +oragel
--- NOTE | 2020-09-25 15:34 | REP ---
INDICATION: MALIGNANT NEOPLASM OF TONSILLAR FOSSA. COMPARISON: None TECHNIQUE: Four views were obtained. The technique utilized in obtaining the radiographs is suboptimal and even after manipulating window and level contrast at the read station by manipulating center and window levels the overexposed images remain to dark for interpretation. FINDINGS: Suboptimal examination needs to be repeated. The examination is nondiagnostic. IMPRESSION: Repeat exam. <Electronically signed by Jose Bradford > 09/25/20 [id number]
== END ==
LOC: M LAB 14:14 → M RAD 14:14
PROVIDERS: ATTEND General Practice
DX: C09.0 Malignant neoplasm of tonsillar fossa (principal)

== ENCOUNTER → 2020-09-25 | Outpatient (CLI) | payer MEDICARE, BC, OTHER ==
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
== END ==
LOC: EEVIPCON 09-05 10:30 → M ONCR 13:00
PROVIDERS: ATTEND General Practice
DX: C09.0 Malignant neoplasm of tonsillar fossa (principal)

== ENCOUNTER → 2020-10-02 | Outpatient (POV) | payer MEDICARE, BC, OTHER ==
[~2020-10-02] VITALS: Ht 180.3 cm; Wt 68.2 kg
[2020-10-02 10:25] VITALS: BP 155/79
--- NOTE | 2020-10-05 08:29 | IRPN ---
[facility] IR Progress Note IR Progress Note DATE: Oct 02, 2020 FOLLOW-UP: Patient with tonsillar cancer status post PEG tube placement in March last year. Patient states he is now eating and drinking well. He finished radiation months ago. No increased swelling or pain in the mouth or throat. He is not using the tube anymore. He would like the tube removed. ON EXAMINATION: Gastrostomy catheter in place without surrounding redness or cellulitis. The G tube balloon was deflated. The G tube was removed in its entirety. A sterile dressing was applied to the site. IMPRESSION: Successful removal of gastrotomy catheter as patient no longer needs it. Patient advised that the site may drain for a couple months and to keep it dressed and dry. Thank you for this referral. Cc Dr. Martínez Allergies Coded Allergies: clindamycin (Verified Adverse Reaction, Unknown, rash, hives, 06/12/20) VS,Fishbone, I+O VS, Fishbone, I+O Vital Signs Date Time Temp Pulse Resp B/P (MAP) Pulse Ox O2 Delivery O2 Flow Rate FiO2 10/02/20 10:25 96.8 80 20 155/79 (104) 98 Room Air JAZLYN RICE MD Oct 05, 2020 08:29
== END ==
LOC: M IRPOV 10:11
PROVIDERS: ATTEND Radiology Diagnostic Radiology
DX: Z43.1 Encounter for attention to gastrostomy (principal); C09.9 Malignant neoplasm of tonsil, unspecified; Z92.3 Personal history of irradiation

== ENCOUNTER → 2020-10-18 | Outpatient (CLI) | payer MEDICARE, BC, OTHER ==
[~2020-10-18] MED LIST changes: +AUGM500T34 PO; +DOXY-350 PO; +OMEP-218 PO; +PROB250C PO; +TRAZ-252 PO; +[UNRECOGNIZED DRUG - CODE] MT
--- NOTE | 2020-10-18 15:29 | REP ---
INDICATION: COPD. COMPARISON: 06/12/2020 the latest prior TECHNIQUE: Two views FINDINGS: There is a new patchy right middle lobe opacity silhouetting out the right heart border. The tip of the MediPort device is unchanged remaining in the superior vena cava. The pleural angles are again seen to be sharp. The heart is not enlarged. There is no change in the osseous structures. IMPRESSION: New patchy right middle lobe opacity pneumonia versus subsegmental atelectatic change. Follow-up is suggested. <Electronically signed by Jose Bradford > 10/18/20 [id number]
--- NOTE | 2020-10-18 15:35 | REP ---
INDICATION: SCIATICA. COMPARISON: 10/26/2012 TECHNIQUE: Five views FINDINGS: There is a mild grade 1 superior endplate concave compression deformity of L4. This represents a change from the prior exam. There is mild to moderate posterior disc space narrowing at every level particularly seen nearly universally at L5-S1. This has all increased from the prior exam. There is L5-S1 anterior lipping. Small marginal osteophytes are seen bilaterally at every level increased from the prior exam. The pedicles appear to be intact bilaterally. There is a new grade 2/3 superior endplate concave compression deformity seen involving T12 the age of which cannot be determined by this exam. IMPRESSION: Chronic changes as described above. <Electronically signed by Jose Bradford > 10/18/20 [id number]
== END ==
LOC: M RAD 14:37
PROVIDERS: ATTEND Family Medicine
DX: R91.8 Other nonspecific abnormal finding of lung field (principal); M51.37 Other intervertebral disc degeneration, lumbosacral region; J44.9 Chronic obstructive pulmonary disease, unspecified; M54.30 Sciatica, unspecified side

== ENCOUNTER 2020-10-19 11:36 | Inpatient (IN) | payer MEDICARE, BC, OTHER ==
[~2020-10-19] VITALS: Ht 177.8 cm; Wt 64.2 kg
[~2020-10-19 11:36] MED LIST changes: -AUGM500T34 PO; -DOXY-350 PO; -OMEP-218 PO; -PROB250C PO; -TRAZ-252 PO; -[UNRECOGNIZED DRUG - CODE] MT
[2020-10-19] MEDS ORDERED: AMOX500C PO (11:50)
[2020-10-19 14:12] LABS: BASO % 0.5 % (0.0-1.0); EOS # 0.2 10^3/uL (0.0-0.5); EOS % 2.9 % (0.0-3.0); LYMPH # 0.4 10^3/uL (1.5-5.0); LYMPH % 6.8 % (24.0-44.0); MEAN CORPUSCULAR HEMOGLOBIN 29.2 pg (27.0-33.0); MEAN CORPUSCULAR HGB CONC 31.6 g/dl (32.0-36.5); MEAN CORPUSCULAR VOLUME 92.5 fl (80.0-96.0); MONO # 0.3 10^3/uL (0.0-0.8); MONO % 4.7 % (2.0-8.0); NEUTROPHILS # 5.3 10^3/uL (1.5-8.5); NEUTROPHILS % 84.9 % (36.0-66.0); RED BLOOD COUNT 4.11 10^6/uL (4.30-6.10); WHITE BLOOD COUNT 6.2 10^3/uL (4.0-10.0)
--- NOTE | 2020-10-19 14:14 | REP ---
INDICATION: further evaluate RML pneumonia COMPARISON: 10/18/2020. TECHNIQUE: PA/Lateral FINDINGS: Lungs: Patchy right middle lobe infiltrate is unchanged. Heart: Normal in size. Mediastinum: Mediastinal silhouette unremarkable. Pleural angles: Unremarkable.. Bones and soft tissues: Mild compression deformity of the L1 vertebral body is unchanged. IMPRESSION: Stable right middle lobe infiltrate. <Electronically signed by Festus Jones > 10/19/20 [id number]
[2020-10-19] MEDS ORDERED: LevoFLOXacin IV 750 MG in IV 1 EA IV ONE (14:15)
[2020-10-19] MEDS ORDERED: NS 1,000 ML IV ONE (14:15)
[2020-10-19] MEDS ORDERED: ALBUTEROL SULFATE 2.5 MG/0.5 ML INH NEB SOLN NEB PRN (15:05)
[2020-10-19 15:11] LABS: ALT/SGPT 14 U/L (12-78); BILIRUBIN,DIRECT 0.1 MG/DL (0.0-0.2); BILIRUBIN,TOTAL 0.3 MG/DL (0.2-1.0); CK-MB VALUE MASS 1.4 NG/ML (<3.6); CPK CREATINE PHOSPHOKINASE 114 U/L (39-308); MB/CK RELATIVE INDEX 1.23 (< OR =4); TROPONIN I < 0.02 NG/ML (< 0.10)
[2020-10-19 16:28] LABS: MAGNESIUM LEVEL 1.6 MG/DL (1.8-2.4)
[2020-10-19 16:45] LABS: BLOOD UREA NITROGEN 31 MG/DL (7-18); CREATININE FOR GFR 2.08 MG/DL (0.70-1.30); GLUCOSE, FASTING 86 MG/DL (70-100)
[2020-10-19 16:46] LABS: CALCIUM LEVEL 9.8 MG/DL (8.8-10.2); CARBON DIOXIDE LEVEL 21 MEQ/L (21-32); CHLORIDE LEVEL 106 MEQ/L (98-107); GLOMERULAR FILTRATION RATE 34.9 (>49); POTASSIUM SERUM 3.1 MEQ/L (3.5-5.1); SODIUM LEVEL 141 MEQ/L (136-145)
--- NOTE | 2020-10-19 17:21 | REP ---
INDICATION: tiago. COMPARISON: None. FINDINGS: Multiple ultrasonographic images of the right kidney show the right kidney to measure 10.7 x 4.6 x 4.4 cm. The renal cortical echotexture is increased. There are no masses. There is a tiny 7 mm sized anechoic structure in the mid polar region. There is good corticomedullary differentiation. There is no hydronephrosis. There are no perinephric fluid collections. Multiple ultrasonographic images of the left kidney show the left kidney to measure 10.8 x 5.5 x 4.9 cm. The renal cortical echotexture is increased. There are no masses. There is a tiny mm sized echogenic focus seen in the superior pole. There is good corticomedullary differentiation. There is no hydronephrosis. There are no perinephric fluid collections. IMPRESSION: 1. Slightly with diffusely increased renal cortical echoes bilaterally consistent with medical renal disease. 2. Incidental tiny right renal cyst but too small for precise ultrasonographic characterisation. Consider follow-up with contrast-enhanced CT. 3. Tiny echogenic focus seen in the left kidney possibly representing a tiny nonobstructing nephrolith. This could be evaluated with noncontrast enhanced stone protocol CT if clinically relevant. <Electronically signed by Jose Bradford > 10/19/20 [id number]
[2020-10-19] MEDS ORDERED: POTASSIUM CHLORIDE 10 MEQ SR TABLET PO ONE (17:40)
[2020-10-19] MEDS ORDERED: guaiFENesin SYRUP 200 MG/10 ML UDC PO PRN (17:45)
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
[2020-10-19] MEDS ORDERED: SIMV20TA22 PO (18:48)
[2020-10-19] MEDS ORDERED: OMEP-218 PO (18:48)
[2020-10-19] MEDS ORDERED: [UNRECOGNIZED DRUG - CODE] MT (18:48)
[2020-10-19] MEDS ORDERED: TRAZ-252 PO (18:48)
[2020-10-19 18:50] VITALS: BP 116/88
[2020-10-19] MEDS: MAG SULF 1GM/100ML (MAG RUN) 1 GM in IV 1 EA IV SCH ×3 (18:55→21:17)
--- NOTE | 2020-10-19 19:07 | ECGEPIP ---
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
[2020-10-19] MEDS ORDERED: cefTRIAXone SOD 1 GM in D5W MINI-BAG PLUS 50 ML IV SCH (20:00)
[2020-10-19] MEDS: LIDOCAINE VISCOUS 2% SOLN 15ML UDC SS PRN (20:42)
[2020-10-19] MEDS ORDERED: traZODone 50 MG TAB PO SCH (21:00)
[2020-10-19] MEDS: NS 1,000 ML IV SCH (21:16)
[2020-10-19 22:00] VITALS: BP 121/93
[2020-10-19] MEDS: HEPARIN SOD (PORCINE) 5000UNITS/ML 1ML VIAL/SYRINGE SC SCH (22:54)
[2020-10-19] MEDS: ACETAMINOPHEN TAB 650MG DOSE (2X325MG) PO PRN (23:01)
[2020-10-19 23:23] LABS: APPEARANCE, URINE CLEAR (CLEAR); BACTERIA, URINE AUTO NEGATIVE (NEGATIVE); BILIRUBIN, URINE AUTO NEGATIVE (NEGATIVE); BLOOD, URINE BLOOD NEGATIVE (NEGATIVE); COLOR, URINE YELLOW (YELLOW); GLUCOSE, URINE (UA) AUTO NEGATIVE (NEGATIVE); KETONE, URINE AUTO 1+ mg/dL (NEGATIVE); LEUKOCYTE ESTERASE, URINE AUTO NEGATIVE (NEGATIVE); MUCUS, URINE SMALL (NEGATIVE); NITRITE, URINE AUTO NEGATIVE (NEGATIVE); PROTEIN, URINE AUTO 1+ mg/dL (NEGATIVE); RBC, URINE AUTO 2 /HPF (0-3); SPECIFIC GRAVITY URINE AUTO 1.017 (1.002-1.035); SQUAMOUS EPITHELIAL CELL UR AU 0 /HPF (0-6); UROBILINOGEN, URINE AUTO 0.2 mg/dL (0.0-2.0); WBC, URINE AUTO 5 /HPF (0-3)
[2020-10-19 23:43] LABS: SODIUM,RANDOM URINE 66 MEQ/L
[2020-10-19] MEDS: DOXYCYCLINE HYCLATE 100 MG in D5W MINI-BAG PLUS 100 ML IV SCH (23:48)
[2020-10-20] MEDS: LIDOCAINE VISCOUS 2% SOLN 15ML UDC SS PRN ×4 (00:40→17:16)
[2020-10-20] MEDS: MORPHINE 2 MG/ML 1ML VIAL (J2270) IV PRN ×2 (01:38→08:39)
[2020-10-20 06:00] VITALS: BP 103/71
[2020-10-20 06:05] LABS: HEMATOCRIT 29.6 % (42.0-52.0); MEAN CORPUSCULAR HEMOGLOBIN 29.7 pg (27.0-33.0); MEAN CORPUSCULAR HGB CONC 32.4 g/dl (32.0-36.5); MEAN CORPUSCULAR VOLUME 91.6 fl (80.0-96.0); PLATELET COUNT, AUTOMATED 197 10^3/uL (150-450); RED BLOOD COUNT 3.23 10^6/uL (4.30-6.10); WHITE BLOOD COUNT 5.9 10^3/uL (4.0-10.0)
[2020-10-20 06:13] LABS: HEMOGLOBIN 9.6 g/dl (13.5-17.5)
[2020-10-20 06:34] LABS: ALBUMIN 2.6 GM/DL (3.2-5.2); ALT/SGPT 9 U/L (12-78); BILIRUBIN,TOTAL 0.2 MG/DL (0.2-1.0); BLOOD UREA NITROGEN 24 MG/DL (7-18); CALCIUM LEVEL 8.7 MG/DL (8.8-10.2); CARBON DIOXIDE LEVEL 21 MEQ/L (21-32); CHLORIDE LEVEL 113 MEQ/L (98-107); CREATININE FOR GFR 1.14 MG/DL (0.70-1.30); GLOMERULAR FILTRATION RATE > 60.0 (>49); GLUCOSE, FASTING 105 MG/DL (70-100); POTASSIUM SERUM 3.4 MEQ/L (3.5-5.1); SODIUM LEVEL 142 MEQ/L (136-145); TOTAL PROTEIN 5.3 GM/DL (6.4-8.2)
[2020-10-20] MEDS: HEPARIN SOD (PORCINE) 5000UNITS/ML 1ML VIAL/SYRINGE SC SCH ×2 (07:27→14:00)
[2020-10-20] MEDS: NS 1,000 ML IV SCH (07:32)
[2020-10-20] MEDS: DOXYCYCLINE HYCLATE 100 MG in D5W MINI-BAG PLUS 100 ML IV SCH (08:23)
[2020-10-20] MEDS: OMEPRAZOLE 20 MG CAP PO SCH ×2 (10:20→14:18)
[2020-10-20] MEDS: POTASSIUM CHLORIDE 10 MEQ SR TABLET PO ONE ×2 (10:21→11:38)
[2020-10-20] MEDS ORDERED: POTASSIUM CHLORIDE 10% LIQ 20 MEQ/15 ML UDC PO ONE (11:15)
[2020-10-20 14:00] VITALS: BP 116/88
[2020-10-20] MEDS ORDERED: AUGM500T34 PO (14:55)
[2020-10-20] MEDS ORDERED: DOXY-350 PO (14:55)
[2020-10-20] MEDS ORDERED: PROB250C PO (14:55)
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
[2020-10-20] MEDS: ACETAMINOPHEN TAB 650MG DOSE (2X325MG) PO PRN (15:09)
[2020-10-20] MEDS ORDERED: SIMVASTATIN 20 MG TAB PO SCH (21:00)
== END 2020-10-20 19:45 | disposition home or self-care (01) | DRG 178 ==
LOC: M ED 11:36 → M ED INP 15:03 → ENRESERV 16:47 → M MSPAV 18:50
PROVIDERS: ADMIT Internal Medicine; ATTEND Internal Medicine
DX: J69.0 Pneumonitis due to inhalation of food and vomit (principal); N17.9 Acute kidney failure, unspecified; E83.42 Hypomagnesemia; E87.6 Hypokalemia; J18.9 Pneumonia, unspecified organism; I10 Essential (primary) hypertension; Z92.21 Personal history of antineoplastic chemotherapy; E03.9 Hypothyroidism, unspecified; E78.5 Hyperlipidemia, unspecified; Z85.819 Personal history of malignant neoplasm of unspecified site of lip, oral cavity, and pharynx; Z87.820 Personal history of traumatic brain injury; Z92.3 Personal history of irradiation; Z79.899 Other long term (current) drug therapy; Z88.1 Allergy status to other antibiotic agents

== ENCOUNTER → 2020-11-14 | Outpatient (CLI) | payer MEDICARE, BC, OTHER ==
[~2020-11-14] MED LIST changes: +AUGM500T34 PO; +BACTDSTA GT; +DOXY-350 PO; +OMEP-218 PO; +OXYC-517 PO; +PENT400T47 PO; +PROB250C PO; -SULF1TAB93 GT; +TRAZ-252 PO; +VITA100020 PO; +[UNRECOGNIZED DRUG - CODE] MT
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
== END ==
LOC: M ONCR 13:35
PROVIDERS: ATTEND General Practice
DX: C09.0 Malignant neoplasm of tonsillar fossa (principal)

== ENCOUNTER → 2020-11-29 | Outpatient (CLI) | payer MEDICARE, BC, OTHER ==
[~2020-11-29] MED LIST changes: +OXYC10TA12 PO
--- NOTE | 2020-11-29 13:47 | RADENCPD ---
Date/Time of Encounter Date of Encounter: Nov 29, 2020 Time of Encounter: 13:39 Encounter Saw Manny for a brief follow up today. He has his brother Kush with him. Manny has an appointment with Dr. Martinez at the wound care center next week. He says has been taking the amoxicillin and pentoxifylline and vitamin E as prescribed. His weight however is down 10 lbs (to 127 lbs). Kush reports he is not eating, only wants to drink H20 and coffee. I explained that to heal he must increase his protein calories, thus for his weight and sedentary lifestyle, he should drink 5 Boost per day, and he will surely gain back weight. Manny with much prodding from Kush said he would try this. On exam the ORN in the right posterior mandible appears stable to slightly improved with a faint rim of granulation tissue surrounding the necrotic portion ~ 3cm in extent. I have been in contact with Dr. Daren MELVIN, who agrees with trial of HBO in addition to trental and vitamin E for this. I explained that as the lesion is not progressing and may be slightly improving spontaneously, that there is a good chance of healing without major surgical intervention. I will see him back in 2 weeks for another weight check. Refilled oxycodone 10 mg q4h PRN MDD 4 tabs disp 60 tab, as the 5 mg dose was inadequate TESSA AMADO MD Nov 29, 2020 13:47
== END ==
LOC: M ONCR 13:00
PROVIDERS: ATTEND General Practice
DX: C09.0 Malignant neoplasm of tonsillar fossa (principal)

== ENCOUNTER 2020-12-04 22:08 | Emergency (ER) | payer MEDICARE, BC, OTHER ==
[~2020-12-04] VITALS: Ht 177.8 cm; Wt 56.9 kg
--- NOTE | 2020-12-05 00:18 | REPVR ---
PROCEDURE INFORMATION: Exam: CT Head Without Contrast Exam date and time: 12/04/2020 11:46 PM Age: 59 years old Clinical indication: Altered mental status/memory loss; Confusion or disorientation; Patient HX: Cough; Additional info: AMS TECHNIQUE: Imaging protocol: Computed tomography of the head without contrast. Radiation optimization: All CT scans at this facility use at least one of these dose optimization techniques: automated exposure control; mA and/or kV adjustment per patient size (includes targeted exams where dose is matched to clinical indication); or iterative reconstruction. COMPARISON: 1. CT Head without contrast 05/20/2019 6: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 There is slight prominence of the peripheral sulci. There is old deep white matter infarct of the central anterior paramedian left and to a lesser degree right frontal lobes. Cerebral ventricles: There is moderate prominence of the central ventricular system, greatest anteriorly. Paranasal sinuses: Visualized sinuses are unremarkable. No fluid levels. Mastoid air cells: Visualized mastoid air cells are well aerated. Bones/joints: Depression of the right zygomatic arch consistent with old injury. Soft tissues: Unremarkable. IMPRESSION: 1. 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 2. Depression of the right zygomatic arch consistent with old injury. 3. No acute interval intracranial process is identified. Electronically signed by: Calvin Sosa On 12/05/2020 00:18:09 AM
[2020-12-05 00:40] LABS: BASO % 0.4 % (0.0-1.0); EOS # 0.1 10^3/uL (0.0-0.5); EOS % 1.1 % (0.0-3.0); HEMATOCRIT 36.8 % (42.0-52.0); HEMOGLOBIN 11.4 g/dl (13.5-17.5); LYMPH # 0.5 10^3/uL (1.5-5.0); LYMPH % 5.8 % (24.0-44.0); MEAN CORPUSCULAR HEMOGLOBIN 27.7 pg (27.0-33.0); MEAN CORPUSCULAR VOLUME 89.5 fl (80.0-96.0); MONO # 0.6 10^3/uL (0.0-0.8); MONO % 7.6 % (2.0-8.0); NEUTROPHILS # 7.1 10^3/uL (1.5-8.5); NEUTROPHILS % 84.7 % (36.0-66.0); PLATELET COUNT, AUTOMATED 234 10^3/uL (150-450); RED BLOOD COUNT 4.11 10^6/uL (4.30-6.10); WHITE BLOOD COUNT 8.3 10^3/uL (4.0-10.0)
--- NOTE | 2020-12-05 00:53 | REPVR ---
PROCEDURE INFORMATION: Exam: XR Chest Exam date and time: 12/05/2020 12:41 AM Age: 59 years old Clinical indication: Fever TECHNIQUE: Imaging protocol: XR of the chest. Views: 2 views. COMPARISON: 1. CT Chest without contrast 06/12/2020 2:14 PM 2. VT Chest, 2 view PA, Lat 10/19/2020 1:55 PM 3. VT Chest, 2 view PA, Lat 10/18/2020 2:49 PM FINDINGS: Tubes, catheters and devices: Right internal jugular Port-A-Cath is unchanged. Lungs: Slightly increased bibasilar infiltrates and atelectasis since the prior study. Pleural spaces: Unremarkable. No pleural effusion. No pneumothorax. Heart/Mediastinum: The heart and mediastinum are unchanged. Bones/joints: Unremarkable. Intraperitoneal space: Surgical clips are again noted in the left upper abdomen. IMPRESSION: 1. Slightly increased bibasilar infiltrates and atelectasis since 10/19/2020. 2. Otherwise stable chest. Electronically signed by: Calvin Sosa On 12/05/2020 00:53:30 AM
[2020-12-05 01:23] LABS: ACETAMINOPHEN LEVEL < 2.0 UG/ML (10.0-30.0); ALT/SGPT 19 U/L (12-78); BILIRUBIN,DIRECT 0.1 MG/DL (0.0-0.2); BILIRUBIN,TOTAL 0.4 MG/DL (0.2-1.0); BLOOD UREA NITROGEN 19 MG/DL (7-18); CALCIUM LEVEL 8.7 MG/DL (8.8-10.2); CARBON DIOXIDE LEVEL 27 MEQ/L (21-32); CHLORIDE LEVEL 106 MEQ/L (98-107); CREATININE FOR GFR 1.01 MG/DL (0.70-1.30); ETHYL ALCOHOL (ETHANOL) < 0.003 % (0.000-0.010); GLOMERULAR FILTRATION RATE > 60.0 (>49); GLUCOSE, FASTING 102 MG/DL (70-100); POTASSIUM SERUM 3.7 MEQ/L (3.5-5.1); SALICYLATE LEVEL < 1.7 MG/DL (5.0-30.0); SODIUM LEVEL 141 MEQ/L (136-145); TOTAL PROTEIN 6.5 GM/DL (6.4-8.2)
[2020-12-05 05:35] VITALS: BP 104/64
--- NOTE | 2020-12-07 13:56 | ED PDOC ---
Post-Departure Follow-Up radiology report faxed to Liliane Lozano MD Dec 07, 2020 13:56
== END 2020-12-05 05:43 | disposition home or self-care (01) ==
LOC: M ED 22:08
DX: F43.20 Adjustment disorder, unspecified (principal); I10 Essential (primary) hypertension; E78.5 Hyperlipidemia, unspecified; E07.9 Disorder of thyroid, unspecified; K21.9 Gastro-esophageal reflux disease without esophagitis; F33.9 Major depressive disorder, recurrent, unspecified; Z87.820 Personal history of traumatic brain injury; Z79.899 Other long term (current) drug therapy; Z88.1 Allergy status to other antibiotic agents

== ENCOUNTER → 2020-12-14 | Outpatient (CLI) | payer MEDICARE, BC, OTHER ==
[~2020-12-14] MED LIST changes: +ONDA-83 PO
[2020-12-14 14:55] LABS: HEMATOCRIT 38.1 % (42.0-52.0); HEMOGLOBIN 11.9 g/dl (13.5-17.5); MEAN CORPUSCULAR HEMOGLOBIN 27.4 pg (27.0-33.0); MEAN CORPUSCULAR HGB CONC 31.2 g/dl (32.0-36.5); MEAN CORPUSCULAR VOLUME 87.6 fl (80.0-96.0); PLATELET COUNT, AUTOMATED 257 10^3/uL (150-450); RED BLOOD COUNT 4.35 10^6/uL (4.30-6.10); WHITE BLOOD COUNT 5.9 10^3/uL (4.0-10.0)
--- NOTE | 2020-12-14 15:17 | REP ---
INDICATION: COPD *LAB 1, EKG 2, XRY 3*. COMPARISON: 12/05/2020. TECHNIQUE: PA and lateral FINDINGS: Cardiomediastinal silhouette lung huitron are stable. There are persistent bilateral lower lobe opacities. The pleural angles remain sharp. The tip of the MediPort device is again seen in the superior vena cava. There is no change in the osseous structures. IMPRESSION: No significant change <Electronically signed by Jose Bradford > 12/14/20 [id number]
[2020-12-14 15:24] LABS: ERYTHROCYTE SEDIMENTATION RATE 82 mm/hr (0-20)
[2020-12-14 15:34] LABS: ALBUMIN 3.1 GM/DL (3.2-5.2); ALT/SGPT 21 U/L (12-78); BILIRUBIN,TOTAL 0.3 MG/DL (0.2-1.0); BLOOD UREA NITROGEN 16 MG/DL (7-18); CALCIUM LEVEL 9.3 MG/DL (8.8-10.2); CARBON DIOXIDE LEVEL 29 MEQ/L (21-32); CHLORIDE LEVEL 105 MEQ/L (98-107); CREATININE FOR GFR 1.14 MG/DL (0.70-1.30); GLOMERULAR FILTRATION RATE > 60.0 (>49); GLUCOSE, FASTING 114 MG/DL (70-100); POTASSIUM SERUM 3.8 MEQ/L (3.5-5.1); SODIUM LEVEL 143 MEQ/L (136-145); TOTAL 25(OH) VITAMIN D 33.8 NG/ML (30.0-100.0); TOTAL PROTEIN 7.1 GM/DL (6.4-8.2)
--- NOTE | 2020-12-15 09:52 | ECGEPIP ---
[facility] Test Date: 2020-12-14 Pat Name: JOY MARTELL Department: Room: - Gender: Male [employer]: SOPHY : 1960 Requested By: Ivan Hill Order Number: [id number] Reading MD: Yariel Mark Measurements Intervals [place] Rate: 75 P: 42 CT: 138 QRS: -6 QRSD: 78 T: 38 QT: 392 QTc: 437 Interpretive Statements Sinus rhythm, Within normal limits. Decreased heart rate compared with 10/19/20. Electronically Signed on 12-15-2020 9:52:15 EDT by Yariel Mark
== END ==
LOC: M LAB 14:21
PROVIDERS: ATTEND Family Medicine
DX: J44.9 Chronic obstructive pulmonary disease, unspecified (principal); I10 Essential (primary) hypertension; R53.83 Other fatigue; Z95.828 Presence of other vascular implants and grafts; Z79.899 Other long term (current) drug therapy
CPT/HCPCS: 36415; 71046; 80053; 82306; 84153; 84443; 85027; 85652; 93005; G0463

== ENCOUNTER → 2020-12-14 | Outpatient (CLI) | payer MEDICARE, BC, OTHER ==
--- NOTE | 2020-12-14 14:09 | RADENCPD ---
Date/Time of Encounter Date of Encounter: Dec 14, 2020 Time of Encounter: 14:04 Encounter Manny came in today 5 lbs additional weight loss in the past 2 weeks BMI now 16.5. He reports that he has no appetite and when he does eat he throws up. On exam his ORN has granulation tissue at the edges appears to be smaller overall. Pain well controlled with intermittent oxycodone 10 mg. States he is taking the trental/vitamin E Missed his wound care appointment, this has been rescheduled for 12/25/20 I explained the ongoing weight loss is an untenable trajectory. He MUST take in 5-6 boost daily. I will refill his oxycodone and give him zofran for nausea. We agreed that if he does not stabilize weight loss in the next 2 weeks that we will pursue admission for FTT. Follow up in 2 weeks. TESSA AMADO MD Dec 14, 2020 14:09
== END ==
LOC: M ONCR 13:00
PROVIDERS: ATTEND General Practice
DX: C09.0 Malignant neoplasm of tonsillar fossa (principal)

== ENCOUNTER → 2020-12-25 | Outpatient (REF) | payer MEDICARE, BC, OTHER | LOC: M LAB REF 16:01 | PROVIDERS: ATTEND Surgery | DX: M27.2 Inflammatory conditions of jaws (principal) | CPT/HCPCS: 87205; G0463 ==

== ENCOUNTER → 2020-12-26 | Outpatient (CLI) | payer MEDICARE, BC, OTHER ==
[~2020-12-26] MED LIST changes: +GASTROGRAFIN SOLUTION 30ML (Q9963) ONE; +ISOVUE-370 76% 100ML VIAL ONE
--- NOTE | 2020-12-26 13:43 | REP ---
INDICATION: EPIGASTRIC MASS, HX TONSIL CA. COMPARISON: None. TECHNIQUE: Standard helical technique after intravenous and oral bowel preparatory contrast administration. 100 cc Isovue 370 was administered. FINDINGS: Extensive patchy lung base opacities are seen bilaterally with a consolidated area in the right middle lobe. Reticulonodular densities and numerous nodules are also suggested in the lung bases but obscured by respiratory motion artifact. When compared to the CT of the chest of 06/12/2020 this has all worsened. No pleural or pericardial effusions have developed. There is cholelithiasis status quo. There is a cyst in the lateral segment of the left lobe of the liver status quo. No enhancing hepatic lesions are identified. The spleen, pancreas, and adrenal glands are within normal limits. In the inferior pole of the right kidney there is a 1.5 cm sized simple cyst. The abdominal aorta and para-aortic regions are within normal limits. The bowel loops and the mesenteries are within normal limits. There is no free fluid or free air. Bone window technique throughout the exam shows a grade 3 superior endplate compression fracture of T12 and a grade 2 superior endplate compression fracture of T10. A grade 2 superior endplate compression fracture of L4 is also identified. The ages of these cannot be determined by this exam. The T12 compression fracture was identified in the 06/12/[address] and appears unchanged. IMPRESSION: 1. Markedly abnormal lung bases as described above. This needs clinical correlation and close follow-up. Infectious versus neoplastic etiology versus a combination of both. Contrast-enhanced chest CT is recommended. 2. Multiple vertebral body compression fractures as described above. 3. Simple right renal cyst. 4. Unchanged cholelithiasis. 5. Other findings as described above. <Electronically signed by Jose Bradford > 12/26/20 1947
== END ==
LOC: M PLAIMG 11:57
PROVIDERS: ATTEND Family Medicine
DX: R91.8 Other nonspecific abnormal finding of lung field (principal); S22.080A Wedge compression fracture of T11-T12 vertebra, initial encounter for closed fracture; S22.070A Wedge compression fracture of T9-T10 vertebra, initial encounter for closed fracture; X58.XXXA Exposure to other specified factors, initial encounter; Y92.89 Other specified places as the place of occurrence of the external cause; Y93.89 Activity, other specified; Y99.8 Other external cause status; K80.20 Calculus of gallbladder without cholecystitis without obstruction; N28.1 Cyst of kidney, acquired
CPT/HCPCS: 74160; Q9963; Q9967

== ENCOUNTER → 2020-12-28 | Outpatient (CLI) | payer MEDICARE, BC, OTHER ==
--- NOTE | 2020-11-07 14:37 | RADENCPD ---
Date/Time of Encounter Date of Encounter: November 07, 2020 Time of Encounter: 14:[address] Mercedes from [facility] oral surgery today regarding Manny. Dr. Mercedes reports he has developed a large patch of ORN near the angle of the mandible on the right (he reports no abnormalities on the left where I had previously noted a mucosal defect along the left mid mandibular alveolar ridge). I explained that this is not especially surprising considering that Manny had a T4 tumor which fully occupied this space at the time of treatment (from nasopharynx to lingual epiglottis). He did undergo a replan in attempt to come off of the unaffected mucosa as the tumor responded during treatment but overall this resulted in a modest improvement in final dosimetry with parts of the right mandible necessarily receiving 70 Gy to ensure adequate coverage of the tumor. For treatment Dr. Mercedes and I agree that if he is able to undergo a seque strectomy or segmental mandibulectomy for this, that would be preferred given the location. An alternative if this is inoperable would be HBO treatment. I am scheduled to see Manny again in December for oncologic follow up, but I remain available if needed to further advise on managing his ORN. TESSA AMADO MD November 07, 2020 14:37
[~2020-12-28] MED LIST changes: -GASTROGRAFIN SOLUTION 30ML (Q9963) ONE; -ISOVUE-370 76% 100ML VIAL ONE
--- NOTE | 2020-12-28 16:02 | RADENCPD ---
Date/Time of Encounter Date of Encounter: Dec 28, 2020 Time of Encounter: 15:24 Encounter Manny came in with Kush today. His weight is up 5 lbs. Has been eating more. Had a recent CT abdomen from Dr. Lui which shows aspiration in the lung bases, acute on chronic. 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 He has stopped the oxycodone as his pain is no longer significant. He has not been taking the trental and vitamin E due to his usual confusion regarding scheduled meds. I provided Kush with a medication list including these adjunctives to healing ORN and he said he will organize Manny's scripts for the week. On exam, the ORN in the posterior right mandible is stable in size and morphology. I will see him back in 2 weeks for a weight check. He will be starting HBO therapy with Dr. Martinez soon hopefully pending insurance approval. TESSA AMADO MD Dec 28, 2020 16:02
== END ==
LOC: M ONCR 14:22
PROVIDERS: ATTEND General Practice
DX: C09.0 Malignant neoplasm of tonsillar fossa (principal); R91.8 Other nonspecific abnormal finding of lung field

== ENCOUNTER → 2021-01-02 | Outpatient (REF) | payer MEDICARE, BC, OTHER | LOC: M LAB REF 12:37 | PROVIDERS: ATTEND Surgery | DX: Z22.322 Carrier or suspected carrier of Methicillin resistant Staphylococcus aureus (principal) ==

== ENCOUNTER → 2021-01-11 | Outpatient (CLI) | payer MEDICARE, BC, OTHER ==
[~2021-01-11] MED LIST changes: -FLUC100T PO; +FLUC100T3 PO; +OMEP-173 PO; -OMEP-218 PO; +ONDA-84 PO; -ONDA8TAB10 PO; +OXYC20TA2 PO; -PROC10TA4 PO; +PROC10TA5 PO; -SCOP1PAT2 TOP; +TRAN1DIS4 TOP
== END ==
LOC: M ONCR 08:26
PROVIDERS: ATTEND General Practice
DX: C09.0 Malignant neoplasm of tonsillar fossa (principal)

== ENCOUNTER → 2021-01-11 | Outpatient (CLI) | payer MEDICARE, BC, OTHER ==
[~2021-01-11] MED LIST changes: +FLUC100T PO; -FLUC100T3 PO; -OMEP-173 PO; +OMEP-218 PO; -ONDA-84 PO; +ONDA8TAB10 PO; -OXYC20TA2 PO; +PROC10TA4 PO; -PROC10TA5 PO; +SCOP1PAT2 TOP; -TRAN1DIS4 TOP
--- NOTE | 2021-01-11 14:00 | REP ---
INDICATION: TONSIL CA W/ ABN IMAG COMPARISON: 06/12/2020 a standard noncontrast enhanced chest CT TECHNIQUE: Standard noncontrast helical technique FINDINGS: Limited evaluation of the mediastinum and pulmonary alfredito show no significant changes from the prior exam. There are no pleural or pericardial effusions. There is no significant change in appearance of the imaged upper abdomen or imaged osseous structures. There is cholelithiasis status quo. The gastrostomy tube seen previously has been removed. Standard evaluation of the lung huitron shows an area of consolidation in the right middle lobe which has worsened significantly per to the prior exam. This is seen with air bronchograms. Two new irregular densities have developed in the left lung 1 in the inferior lingula and the other in the antral basal segment of the left lower lobe. There are numerous reticulonodular densities some of which have increased from the prior exam and some of which have decreased from the prior exam. There is cylindrical bronchiectasis status quo. High-resolution CT imaging of the lungs was also obtained. There are scattered septal opacities with septal thickening. There are numerous reticulonodular densities. There are no ground-glass opacities. IMPRESSION: 1. New abnormal opacities as described above. Infectious versus neoplastic etiology. This should be correlated clinically with appropriate follow-up. 2. Chronic lung field changes with reticulonodular densities, septal opacities, and septal thickening along with air bronchograms as described above. 3. The patient refused intravenous contrast decreasing the sensitivity of the exam. 4. Other findings as described above. <Electronically signed by Jose Bradford > 01/11/21 [id number]
== END ==
LOC: M PLAIMG 12:54
PROVIDERS: ATTEND Family Medicine
DX: C09.0 Malignant neoplasm of tonsillar fossa (principal); K80.20 Calculus of gallbladder without cholecystitis without obstruction; R91.8 Other nonspecific abnormal finding of lung field; M27.2 Inflammatory conditions of jaws
CPT/HCPCS: 71250; G0277; G0463

== ENCOUNTER → 2021-01-23 | Outpatient (CLI) | payer MEDICARE, BC, OTHER ==
--- NOTE | 2021-01-23 16:42 | REP ---
INDICATION: OTHER NONSPECIFIC ABNORMAL FINDING OF LUNG FIELD. COMPARISON: 12/14/2020 TECHNIQUE: PA and lateral views FINDINGS: Chronic bibasilar infiltrates are unchanged when compared with the study dated 12/14/2020. The lungs are otherwise clear. MediPort catheter in place with tip in the vena cava. Heart is not enlarged. No failure. IMPRESSION: Chronic consolidation at the lung bases unchanged compared with the previous study. <Electronically signed by Yusuf Alba > 01/23/21 1444
== END ==
LOC: M PLAIMG 14:53
PROVIDERS: ATTEND Internal Medicine Pulmonary Disease
DX: R91.8 Other nonspecific abnormal finding of lung field (principal); M27.2 Inflammatory conditions of jaws
CPT/HCPCS: 71046; G0277

== ENCOUNTER → 2021-03-26 | Outpatient (CLI) | payer MEDICARE, BC, OTHER ==
[~2021-03-26] MED LIST changes: -SCOP1PAT2 TOP; +TRAN1DIS4 TOP
--- NOTE | 2021-03-26 14:02 | RADENCPD ---
Date/Time of Encounter Date of Encounter: Mar 26, 2021 Time of Encounter: 13:59 Encounter Manny came in for a brief follow up today to assess the progress of his right mandible ORN and for a weight check. He has 6 more HBO sessions to go. He has greatly diminished pain in the area. His weight is up 10 lbs. Appetite good. He would like his port removed. On exam he has a small pale mucosal defect in the right posterior mandibular ramus mucosa. Much improved! He has no palpable adenopathy. Plan: I will see him again in 1 month for full follow up and scope exam In the meantime I will place a referral for PORT removal I will also prescribe 0xycodone 5 mg x 30 tabs for his breakthrough oral pain, he has not had any issues with taking these responsibly TESSA AMADO MD Mar 26, 2021 14:02
== END ==
LOC: M ONCR 12:59
PROVIDERS: ATTEND General Practice
DX: C09.0 Malignant neoplasm of tonsillar fossa (principal); Z95.828 Presence of other vascular implants and grafts
CPT/HCPCS: G0277; G0463

== ENCOUNTER → 2021-05-02 | Outpatient (CLI) | payer MEDICARE, BC, OTHER ==
[~2021-05-02] MED LIST changes: +OXYC20TA2 PO
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
== END ==
LOC: M ONCR 12:57
PROVIDERS: ATTEND General Practice
DX: C09.0 Malignant neoplasm of tonsillar fossa (principal); Z92.3 Personal history of irradiation; Z92.21 Personal history of antineoplastic chemotherapy; Z88.1 Allergy status to other antibiotic agents; Z79.891 Long term (current) use of opiate analgesic; Z79.899 Other long term (current) drug therapy
CPT/HCPCS: 31575; G0463

== ENCOUNTER → 2021-08-09 | Outpatient (CLI) | payer MEDICARE, BC, OTHER ==
[~2021-08-09] MED LIST changes: -FLUC100T PO; +FLUC100T3 PO; +OMEP-173 PO; -OMEP-218 PO; +ONDA-84 PO; -ONDA8TAB10 PO; -PROC10TA4 PO; +PROC10TA5 PO
== END ==
LOC: M ONCR 10:23
PROVIDERS: ATTEND General Practice
DX: C09.0 Malignant neoplasm of tonsillar fossa (principal); Z79.899 Other long term (current) drug therapy; Z88.1 Allergy status to other antibiotic agents; Z92.21 Personal history of antineoplastic chemotherapy; Z92.3 Personal history of irradiation

== ENCOUNTER → 2021-11-05 | Outpatient (CLI) | payer MEDICARE, BC, OTHER ==
[~2021-11-05] MED LIST changes: -ACET1TAB16; -ACET1TAB16 PO; +ACET300T48; +ACET300T48 PO; +LEVO25TA5 PO
[2021-11-05 15:06] LABS: FREE T4 0.86 NG/DL (0.76-1.46); THYROID STIMULATING HORMONE 4.4 uIU/ML (0.358-3.740)
== END ==
LOC: M ONCR 12:56
PROVIDERS: ATTEND General Practice
DX: C09.0 Malignant neoplasm of tonsillar fossa (principal); Z88.1 Allergy status to other antibiotic agents; Z92.21 Personal history of antineoplastic chemotherapy; Z92.3 Personal history of irradiation
CPT/HCPCS: 31575; 36591; 84439; 84443; G0463

== ENCOUNTER → 2021-11-12 | Outpatient (CLI) | payer MEDICARE, BC, OTHER ==
[2021-11-12 12:45] LABS: FREE T4 0.9 NG/DL (0.76-1.46); THYROID STIMULATING HORMONE 2.68 uIU/ML (0.358-3.740)
== END ==
LOC: M LAB 08:38
PROVIDERS: ATTEND General Practice
DX: D50.9 Iron deficiency anemia, unspecified (principal)

== ENCOUNTER → 2021-11-12 | Outpatient (CLI) | payer MEDICARE, BC, OTHER ==
[2021-11-12 11:24] LABS: HEMATOCRIT 40.1 % (42.0-52.0); HEMOGLOBIN 12.6 g/dl (13.5-17.5); MEAN CORPUSCULAR HEMOGLOBIN 28.4 pg (27.0-33.0); MEAN CORPUSCULAR HGB CONC 31.4 g/dl (32.0-36.5); MEAN CORPUSCULAR VOLUME 90.3 fl (80.0-96.0); PLATELET COUNT, AUTOMATED 181 10^3/uL (150-450); RED BLOOD COUNT 4.44 10^6/uL (4.30-6.10); WHITE BLOOD COUNT 8.8 10^3/uL (4.0-10.0)
[2021-11-12 12:13] LABS: ALBUMIN 3.6 GM/DL (3.2-5.2); ALT/SGPT 21 U/L (12-78); BILIRUBIN,TOTAL 0.2 MG/DL (0.2-1.0); BLOOD UREA NITROGEN 18 MG/DL (7-18); CALCIUM LEVEL 8.9 MG/DL (8.8-10.2); CARBON DIOXIDE LEVEL 30 MEQ/L (21-32); CHLORIDE LEVEL 108 MEQ/L (98-107); CHOLESTEROL LEVEL 269 MG/DL (<200); CHOLESTEROL RISK RATIO 5.075 (<5); CREATININE FOR GFR 1.09 MG/DL (0.70-1.30); GLOMERULAR FILTRATION RATE > 60.0 (>49); GLUCOSE, FASTING 90 MG/DL (70-100); HDL CHOLESTEROL 53 MG/DL (>40); LDL CHOLESTEROL 167 MG/DL (<100); NON-HDL-C 216 MG/DL; POTASSIUM SERUM 3.4 MEQ/L (3.5-5.1); PROSTATIC SPECIFIC AG MONITOR 1.16 NG/ML (< 4.00); SODIUM LEVEL 141 MEQ/L (136-145); TOTAL PROTEIN 7.3 GM/DL (6.4-8.2); TRIGLYCERIDES LEVEL 245 MG/DL (<150)
[2021-11-12 13:59] LABS: HEMOGLOBIN A1c 5.3 %
== END ==
LOC: M RAD 08:28 → M LAB 08:28
PROVIDERS: ATTEND Family Medicine
DX: D50.9 Iron deficiency anemia, unspecified (principal); M19.012 Primary osteoarthritis, left shoulder; J44.9 Chronic obstructive pulmonary disease, unspecified; Z79.899 Other long term (current) drug therapy

== ENCOUNTER → 2021-11-19 | Outpatient (CLI) | payer MEDICARE, BC, OTHER | LOC: M PLAIMG 13:39 | PROVIDERS: ATTEND Family Medicine | DX: R51.9 Headache, unspecified (principal); R47.81 Slurred speech; I25.10 Atherosclerotic heart disease of native coronary artery without angina pectoris ==

== ENCOUNTER → 2022-01-16 | Outpatient (REF) | payer MEDICARE, OTHER | LOC: M SFHCDERM 17:16 | PROVIDERS: ATTEND Nurse Practitioner Family | DX: C44.619 Basal cell carcinoma of skin of left upper limb, including shoulder (principal) ==

== ENCOUNTER → 2022-03-04 | Outpatient (CLI) | payer MEDICARE, BC, OTHER | LOC: M ONCR 13:21 | PROVIDERS: ATTEND General Practice | DX: Z08 Encounter for follow-up examination after completed treatment for malignant neoplasm (principal); Z85.818 Personal history of malignant neoplasm of other sites of lip, oral cavity, and pharynx; Z79.890 Hormone replacement therapy; Z79.899 Other long term (current) drug therapy; Z88.1 Allergy status to other antibiotic agents; Z92.21 Personal history of antineoplastic chemotherapy; Z92.3 Personal history of irradiation | CPT/HCPCS: 31575; G0463 ==

== ENCOUNTER 2022-04-19 14:37 | Emergency (ER) | payer MEDICARE, BC, OTHER ==
[~2022-04-19] VITALS: Ht 177.8 cm; Wt 70.4 kg
[~2022-04-19 14:37] MED LIST changes: -DOXY-350 PO; +DOXY-444 PO
[2022-04-19 15:52] LABS: BASO % 0.6 % (0.0-1.0); EOS # 0.3 10^3/uL (0.0-0.5); EOS % 3.5 % (0.0-3.0); HEMATOCRIT 38.3 % (42.0-52.0); HEMOGLOBIN 12.3 g/dl (13.5-17.5); LYMPH % 13.2 % (24.0-44.0); MEAN CORPUSCULAR HEMOGLOBIN 28.3 pg (27.0-33.0); MEAN CORPUSCULAR HGB CONC 32.1 g/dl (32.0-36.5); MONO # 0.4 10^3/uL (0.0-0.8); MONO % 5.3 % (2.0-8.0); NEUTROPHILS # 5.5 10^3/uL (1.5-8.5); NEUTROPHILS % 76.6 % (36.0-66.0); PLATELET COUNT, AUTOMATED 277 10^3/uL (150-450); RED BLOOD COUNT 4.35 10^6/uL (4.30-6.10); WHITE BLOOD COUNT 7.2 10^3/uL (4.0-10.0)
[2022-04-19] MEDS ORDERED: cefTRIAXone SOD 1 GM in D5W MINI-BAG PLUS 50 ML IV ONE (16:15)
[2022-04-19] MEDS ORDERED: NS 1,000 ML IV ONE (16:15)
[2022-04-19 16:39] LABS: ALBUMIN 3.5 GM/DL (3.2-5.2); ALT/SGPT 22 U/L (12-78); AMYLASE 99 U/L (25-115); BILIRUBIN,DIRECT < 0.1 MG/DL (0.0-0.2); BILIRUBIN,TOTAL 0.1 MG/DL (0.2-1.0); BLOOD UREA NITROGEN 21 MG/DL (7-18); C REACTIVE PROTEIN QUANTITATIV 2.37 MG/DL (0.00-0.30); CALCIUM LEVEL 8.3 MG/DL (8.8-10.2); CARBON DIOXIDE LEVEL 27 MEQ/L (21-32); CHLORIDE LEVEL 106 MEQ/L (98-107); CREATININE FOR GFR 1.04 MG/DL (0.70-1.30); GLOMERULAR FILTRATION RATE > 60.0 (>49); GLUCOSE, FASTING 153 MG/DL (70-100); POTASSIUM SERUM 3.7 MEQ/L (3.5-5.1); SODIUM LEVEL 142 MEQ/L (136-145); TOTAL PROTEIN 6.9 GM/DL (6.4-8.2)
[2022-04-19] MEDS ORDERED: BACT800T5 PO (18:22)
[2022-04-19 18:33] VITALS: BP 138/87
== END 2022-04-19 18:38 | disposition home or self-care (01) ==
LOC: M ED 14:37
DX: L76.33 Postprocedural seroma of skin and subcutaneous tissue following a dermatologic procedure (principal); T81.40XA Infection following a procedure, unspecified, initial encounter; I10 Essential (primary) hypertension; E78.5 Hyperlipidemia, unspecified; E03.9 Hypothyroidism, unspecified; C32.9 Malignant neoplasm of larynx, unspecified; Z93.1 Gastrostomy status; F17.200 Nicotine dependence, unspecified, uncomplicated; Z88.1 Allergy status to other antibiotic agents; Z79.890 Hormone replacement therapy; Z79.899 Other long term (current) drug therapy
CPT/HCPCS: 76882; 80048; 80076; 82150; 83605; 85025; 86140; 87040; 87070; 87077; 87186; 93041; 94760; 96365; 96366; 99284; J0696

== ENCOUNTER → 2022-04-24 | Outpatient (REF) | payer MEDICARE, BC, OTHER | LOC: M SFHCDERM 16:38 | PROVIDERS: ATTEND Dermatology | DX: T81.49XA Infection following a procedure, other surgical site, initial encounter (principal) ==

== ENCOUNTER → 2022-05-01 | Outpatient (REF) | payer MEDICARE, BC, OTHER | LOC: M SFHCDERM 17:12 | PROVIDERS: ATTEND Dermatology | DX: T81.49XA Infection following a procedure, other surgical site, initial encounter (principal); Y83.8 Other surgical procedures as the cause of abnormal reaction of the patient, or of later complication, without mention of misadventure at the time of the procedure ==

== ENCOUNTER 2022-07-24 02:59 | Inpatient (IN) | payer MEDICARE, BC, OTHER ==
[2022-07-24] VITALS (48 sets, daily range): BP systolic 74–129; BP diastolic 50–79; O2SAT 92–98
[~2022-07-24] VITALS: Ht 177.8 cm; Wt 67.7 kg
[~2022-07-24 02:59] MED LIST changes: +LIDO15SO4 PO; -LIDO2SOL17 PO
[2022-07-24] MEDS ORDERED: IPRATROPIUM 0.5MG/ALBUTEROL 2.5MG INH SOL UD 3ML (DUONEB) NEB PRN (03:10)
[2022-07-24 03:24] LABS: HEMATOCRIT 45.4 % (42.0-52.0); HEMOGLOBIN 14.3 g/dl (13.5-17.5); MEAN CORPUSCULAR HEMOGLOBIN 27.7 pg (27.0-33.0); MEAN CORPUSCULAR HGB CONC 31.5 g/dl (32.0-36.5); PLATELET COUNT, AUTOMATED 259 10^3/uL (150-450); RED BLOOD COUNT 5.16 10^6/uL (4.30-6.10); WHITE BLOOD COUNT 16.2 10^3/uL (4.0-10.0)
[2022-07-24] MEDS ORDERED: NS 1,000 ML IV ONE ×2 (03:35→14:00)
[2022-07-24 03:45] LABS: INR 1.38; PROTHROMBIN TIME 17.2 SECONDS (12.5-14.5)
[2022-07-24 03:59] LABS: ALBUMIN 3.8 G/DL (3.2-5.2); ALKALINE PHOSPHATASE 64 U/L (46-116); ALT/SGPT 36 U/L (7.0-40); AST/SGOT 62 U/L (<34); BILIRUBIN,DIRECT 0.3 MG/DL (<0.4); BILIRUBIN,TOTAL 1.1 MG/DL (0.3-1.2); BLOOD UREA NITROGEN 46 MG/DL (9-23); CALCIUM LEVEL 8.8 MG/DL (8.3-10.6); CARBON DIOXIDE LEVEL 18 MMOL/L (20-31); CHLORIDE LEVEL 106 MMOL/L (98-107); CK-MB VALUE MASS < 1.0 NG/ML (<3.6); CPK CREATINE PHOSPHOKINASE 197 U/L (46-171); CREATININE FOR GFR 2.48 MG/DL (0.70-1.30); GLOMERULAR FILTRATION RATE 28.3 (>49); GLUCOSE, FASTING 96 MG/DL (74-106); POTASSIUM SERUM 4.4 MMOL/L (3.5-5.1); SODIUM LEVEL 144 MMOL/L (136-145); TOTAL PROTEIN 7.4 G/DL (5.7-8.2)
[2022-07-24] MEDS ORDERED: NS 1,090 ML in IV 1 EA IV ONE (04:05)
[2022-07-24] MEDS ORDERED: PIPERACILLIN/TAZOBACTAM SOD 3.375 GM in D5W MINI-BAG PLUS 50 ML IV ONE (04:50)
[2022-07-24 04:55] LABS: ABG BASE EXCESS -7.6 (-2.0-2.0); ABG HCO3 16.5 MEQ/L (22.0-26.0); ABG O2 SATURATION 98.9 % (95.0-99.0); ABG PARTIAL PRESSURE CO2 29.8 mmHg (35.0-45.0); ABG PARTIAL PRESSURE O2 164.5 mmHg (75.0-100.0); ABG STANDARD HCO3 18.3 MEQ/L (22.0-26.0); ABG TOTAL CO2 17.4 MEQ/L (23.0-31.0); ABG pH (ARTERIAL) 7.362 UNITS (7.350-7.450)
[2022-07-24 05:12] LABS: EOSINOPHILS 1 % (0-3); HYPOCHROMASIA 1+; LYMPHOCYTES 8 % (16-44); METAMYELOCYTES 22 % (0-0); MONOCYTES 1 % (0-5); MYELOCYTES 10 % (0-0); NEUTROPHILS 27 % (28-66); PLATELET ESTIMATE NORMAL (NORMAL)
[2022-07-24 06:08] LABS: CK-MB VALUE MASS < 1.0 NG/ML (<3.6)
[2022-07-24 06:12] LABS: CPK CREATINE PHOSPHOKINASE 93 U/L (46-171); MB/CK RELATIVE INDEX 1.07 (< OR =4)
[2022-07-24] MEDS: IPRATROPIUM 0.5MG/ALBUTEROL 2.5MG INH SOL UD 3ML (DUONEB) NEB SCH ×4 (08:00→20:28)
[2022-07-24] MEDS ORDERED: VANCOMYCIN HCL 1,000 MG, VIAL MATE ADAPTER 1 EACH in NS 250 ML IV SCH (08:15)
[2022-07-24] MEDS ORDERED: MED REC COMMENT (09:19)
[2022-07-24] MEDS ORDERED: SILD100T PO (09:19)
[2022-07-24] MEDS ORDERED: LISI5TAB11 PO (09:19)
[2022-07-24] MEDS ORDERED: SIMV20TA22 PO (09:19)
[2022-07-24] MEDS ORDERED: ZOLP5TAB PO (09:19)
[2022-07-24] MEDS: D5W/0.9% SODIUM CHLORIDE 1,000 ML IV SCH ×2 (09:20→16:07)
[2022-07-24] MEDS: FAMOTIDINE 20 MG TAB PO SCH (09:21)
[2022-07-24] MEDS: methylPREDNISolone 40MG 1ML VIAL IV SCH ×2 (09:21→17:03)
[2022-07-24] MEDS: AZITHROMYCIN 250MG TABLET PO SCH (09:21)
[2022-07-24] MEDS ORDERED: HOME MED LIST COMPLETE! XX SCH (09:25)
[2022-07-24] MEDS ORDERED: VANCOMYCIN HCL 750 MG, VIAL MATE ADAPTER 1 EACH in D5W 250 ML IV ONE ×2 (10:00→12:00)
[2022-07-24] MEDS ORDERED: VANCOMYCIN HCL 500 MG in D5W MINI-BAG PLUS 100 ML IV ONE ×2 (11:00→13:00)
[2022-07-24] MEDS: PIPERACILLIN/TAZOBACTAM SOD 3.375 GM in D5W MINI-BAG PLUS 50 ML IV SCH ×3 (11:30→23:42)
[2022-07-24] MEDS ORDERED: ACETAMINOPHEN TAB 650MG DOSE (2X325MG) PO PRN (11:45)
[2022-07-24 13:26] LABS: ABG pH (ARTERIAL) 7.413 UNITS (7.350-7.450)
[2022-07-24 13:27] LABS: ABG BASE EXCESS -7.7 (-2.0-2.0); ABG HCO3 15.3 MEQ/L (22.0-26.0); ABG O2 SATURATION 95.8 % (95.0-99.0); ABG PARTIAL PRESSURE CO2 24.6 mmHg (35.0-45.0); ABG PARTIAL PRESSURE O2 80.4 mmHg (75.0-100.0); ABG STANDARD HCO3 18.2 MEQ/L (22.0-26.0); ABG TOTAL CO2 16.1 MEQ/L (23.0-31.0)
[2022-07-24] MEDS ORDERED: NS 500 ML IV ONE (14:05)
[2022-07-24] MEDS: HEPARIN SOD (PORCINE) 5000UNITS/ML 1ML VIAL/SYRINGE SC SCH ×2 (14:12→22:18)
[2022-07-24] MEDS ORDERED: NOREPINEPHRINE 4MG IN D5 250ML 4 MG in IV 1 EA IV SCH ×2 (15:30)
[2022-07-24] MEDS ORDERED: ACETAMINOPHEN 1000MG 100ML IV BAG IV ONE (22:00)
[2022-07-25] VITALS (24 sets, daily range): BP systolic 84–111; BP diastolic 52–81
[2022-07-25] MEDS: methylPREDNISolone 40MG 1ML VIAL IV SCH ×3 (01:34→17:18)
[2022-07-25] MEDS: D5W/0.9% SODIUM CHLORIDE 1,000 ML IV SCH (01:35)
[2022-07-25 04:20] LABS: HEMATOCRIT 35.5 % (42.0-52.0); MEAN CORPUSCULAR HEMOGLOBIN 27.5 pg (27.0-33.0); MEAN CORPUSCULAR VOLUME 88.8 fl (80.0-96.0); PLATELET COUNT, AUTOMATED 193 10^3/uL (150-450); WHITE BLOOD COUNT 8.9 10^3/uL (4.0-10.0)
[2022-07-25 04:50] LABS: ALBUMIN 2.9 G/DL (3.2-5.2); BILIRUBIN,TOTAL 0.6 MG/DL (0.3-1.2); CALCIUM LEVEL 7.6 MG/DL (8.3-10.6); CREATININE FOR GFR 1.51 MG/DL (0.70-1.30); GLOMERULAR FILTRATION RATE 50.1 (>49); POTASSIUM SERUM 2.8 MMOL/L (3.5-5.1); TOTAL PROTEIN 5.8 G/DL (5.7-8.2)
[2022-07-25] MEDS: PIPERACILLIN/TAZOBACTAM SOD 3.375 GM in D5W MINI-BAG PLUS 50 ML IV SCH (05:18)
[2022-07-25 05:50] LABS: ABG BASE EXCESS -5.8 (-2.0-2.0); ABG HCO3 17.2 MEQ/L (22.0-26.0); ABG O2 SATURATION 95.9 % (95.0-99.0); ABG PARTIAL PRESSURE CO2 26.1 mmHg (35.0-45.0); ABG PARTIAL PRESSURE O2 72.4 mmHg (75.0-100.0); ABG STANDARD HCO3 19.7 MEQ/L (22.0-26.0); ABG pH (ARTERIAL) 7.436 UNITS (7.350-7.450)
[2022-07-25] MEDS ORDERED: KCL 20MEQ IN 100ML SWI (KRUN) 20 MEQ in IV 1 EA IV ONE ×2 (06:00)
[2022-07-25] MEDS: HEPARIN SOD (PORCINE) 5000UNITS/ML 1ML VIAL/SYRINGE SC SCH ×3 (06:23→21:34)
[2022-07-25] MEDS ORDERED: KCL 10MEQ/100ML SWI (KRUN) 10 MEQ in IV 1 EA IV ONE (07:00)
[2022-07-25] MEDS ORDERED: VANCOMYCIN HCL 750 MG, VIAL MATE ADAPTER 1 EACH in D5W 250 ML IV SCH (08:00)
[2022-07-25] MEDS: IPRATROPIUM 0.5MG/ALBUTEROL 2.5MG INH SOL UD 3ML (DUONEB) NEB SCH ×4 (08:15→19:44)
[2022-07-25] MEDS: SODIUM CHLORIDE 0.9% INJ 10 ML SYR IV SCH (09:00)
[2022-07-25] MEDS ORDERED: VANCOMYCIN HCL 1,000 MG, VIAL MATE ADAPTER 1 EACH in D5W 250 ML IV SCH (09:00)
[2022-07-25] MEDS: AZITHROMYCIN 250MG TABLET PO SCH (09:50)
[2022-07-25] MEDS: FAMOTIDINE 20 MG TAB PO SCH (09:51)
[2022-07-25] MEDS: KCL 20MEQ IN 0.45NS 1000ML 1,000 ML IV SCH ×3 (10:04→23:57)
[2022-07-25] MEDS ORDERED: VARIBAR PUDDING 40% w/v 230ML TUBE As Ordered ONE (10:59)
[2022-07-25] MEDS ORDERED: E-Z-PAQUE 96% w/w SUSP 176GM BTL As Ordered ONE (10:59)
[2022-07-25] MEDS ORDERED: BARIUM SULFATE 700 MG TABLET (E-Z-DISK) As Ordered ONE (10:59)
[2022-07-25] MEDS ORDERED: VARIBAR NECTAR 40% w/v 240ML SUSP BTL As Ordered ONE (10:59)
[2022-07-25 12:01] LABS: CALCIUM LEVEL 7.1 MG/DL (8.3-10.6); CREATININE FOR GFR 1.35 MG/DL (0.70-1.30); POTASSIUM SERUM 2.5 MMOL/L (3.5-5.1)
[2022-07-25] MEDS: PIPERACILLIN/TAZOBACTAM SOD 4.5 GM in D5W MINI-BAG PLUS 50 ML IV SCH ×3 (12:35→22:46)
[2022-07-25] MEDS: KCL 20MEQ IN 100ML SWI (KRUN) 20 MEQ in IV 1 EA IV SCH ×4 (13:02→14:14)
[2022-07-25 19:02] LABS: ALBUMIN 2.8 G/DL (3.2-5.2); ALKALINE PHOSPHATASE 41 U/L (46-116); ALT/SGPT 20 U/L (7.0-40); AST/SGOT 26 U/L (<34); BILIRUBIN,TOTAL 0.5 MG/DL (0.3-1.2); BLOOD UREA NITROGEN 33 MG/DL (9-23); CALCIUM LEVEL 7.7 MG/DL (8.3-10.6); CARBON DIOXIDE LEVEL 17 MMOL/L (20-31); CHLORIDE LEVEL 115 MMOL/L (98-107); CREATININE FOR GFR 1.27 MG/DL (0.70-1.30); GLOMERULAR FILTRATION RATE > 60.0 (>49); GLUCOSE, FASTING 100 MG/DL (74-106); MAGNESIUM LEVEL 1.4 MG/DL (1.8-2.4); PHOSPHORUS LEVEL 1.4 MG/DL (2.4-5.1); POTASSIUM SERUM 3.4 MMOL/L (3.5-5.1); SODIUM LEVEL 146 MMOL/L (136-145); TOTAL PROTEIN 5.8 G/DL (5.7-8.2)
[2022-07-25] MEDS: MAG SULF 1GM/100ML (MAG RUN) 1 GM in IV 1 EA IV SCH ×2 (20:04→21:25)
[2022-07-26] VITALS (9 sets, daily range): BP systolic 108–158; BP diastolic 66–94
[2022-07-26] MEDS: methylPREDNISolone 40MG 1ML VIAL IV SCH ×3 (01:12→17:37)
[2022-07-26] MEDS: PIPERACILLIN/TAZOBACTAM SOD 4.5 GM in D5W MINI-BAG PLUS 50 ML IV SCH ×4 (05:20→22:14)
[2022-07-26] MEDS: HEPARIN SOD (PORCINE) 5000UNITS/ML 1ML VIAL/SYRINGE SC SCH ×3 (05:21→22:14)
[2022-07-26 06:14] LABS: HEMATOCRIT 32.7 % (42.0-52.0); HEMOGLOBIN 10.5 g/dl (13.5-17.5); MEAN CORPUSCULAR HEMOGLOBIN 27.7 pg (27.0-33.0); MEAN CORPUSCULAR HGB CONC 32.1 g/dl (32.0-36.5); MEAN CORPUSCULAR VOLUME 86.3 fl (80.0-96.0); PLATELET COUNT, AUTOMATED 188 10^3/uL (150-450); RED BLOOD COUNT 3.79 10^6/uL (4.30-6.10)
[2022-07-26 06:24] LABS: ABG BASE EXCESS -6.4 (-2.0-2.0); ABG HCO3 15.8 MEQ/L (22.0-26.0); ABG O2 SATURATION 95.9 % (95.0-99.0); ABG PARTIAL PRESSURE O2 77.7 mmHg (75.0-100.0); ABG STANDARD HCO3 19.2 MEQ/L (22.0-26.0); ABG TOTAL CO2 16.5 MEQ/L (23.0-31.0); ABG pH (ARTERIAL) 7.454 UNITS (7.350-7.450)
[2022-07-26 06:38] LABS: VANCOMYCIN LEVEL TROUGH 8.5 UG/ML (10.0-20.0)
[2022-07-26 07:47] LABS: ALBUMIN 2.5 G/DL (3.2-5.2); ALKALINE PHOSPHATASE 41 U/L (46-116); ALT/SGPT 18 U/L (7.0-40); AST/SGOT 21 U/L (<34); BILIRUBIN,TOTAL 0.3 MG/DL (0.3-1.2); BLOOD UREA NITROGEN 31 MG/DL (9-23); CALCIUM LEVEL 7.3 MG/DL (8.3-10.6); CARBON DIOXIDE LEVEL 17 MMOL/L (20-31); CHLORIDE LEVEL 115 MMOL/L (98-107); CREATININE FOR GFR 1.21 MG/DL (0.70-1.30); GLOMERULAR FILTRATION RATE > 60.0 (>49); GLUCOSE, FASTING 106 MG/DL (74-106); MAGNESIUM LEVEL 1.9 MG/DL (1.8-2.4); POTASSIUM SERUM 3.3 MMOL/L (3.5-5.1); SODIUM LEVEL 145 MMOL/L (136-145); TOTAL PROTEIN 5.3 G/DL (5.7-8.2)
[2022-07-26] MEDS ORDERED: D5W/0.45% SODIUM CHLORIDE 1,000 ML IV SCH (07:50)
[2022-07-26] MEDS ORDERED: VANCOMYCIN HCL 1,000 MG, VIAL MATE ADAPTER 1 EACH in D5W 250 ML IV SCH (08:00)
[2022-07-26] MEDS: IPRATROPIUM 0.5MG/ALBUTEROL 2.5MG INH SOL UD 3ML (DUONEB) NEB SCH ×4 (08:04→20:43)
[2022-07-26] MEDS: KCL 20MEQ IN 0.45NS 1000ML 1,000 ML IV SCH ×2 (08:10→22:15)
[2022-07-26 08:23] LABS: PHOSPHORUS LEVEL 2.2 MG/DL (2.4-5.1)
[2022-07-26] MEDS: AZITHROMYCIN INJ 500 MG, VIAL MATE ADAPTER 1 EACH in NS 250 ML IV SCH (09:09)
[2022-07-26] MEDS: PANTOPRAZOLE 40MG VIAL IV SCH (09:09)
[2022-07-26] MEDS: SODIUM CHLORIDE 0.9% INJ 10 ML SYR IV SCH (09:10)
[2022-07-26] MEDS: KCL 20MEQ IN 100ML SWI (KRUN) 20 MEQ in IV 1 EA IV SCH ×4 (09:25→10:16)
[2022-07-26] MEDS ORDERED: POTASSIUM PHOSPHATE INJ 20 MMOL in D5W 250 ML IV ONE (12:00)
[2022-07-26] MEDS: SODIUM CHLORIDE 0.9% INJ 10 ML SYR IV PRN (15:21)
[2022-07-26] MEDS ORDERED: zolPIDEM TARTRATE 5 MG TAB PO SCH (21:00)
[2022-07-26] MEDS ORDERED: diphenhydrAMINE 50MG/ML VIAL IM ONE (23:05)
[2022-07-27] MEDS ORDERED: diphenhydrAMINE 50MG/ML VIAL IV ONE
[2022-07-27] MEDS: KCL 20MEQ IN 0.45NS 1000ML 1,000 ML IV SCH ×2 (00:40→04:28)
[2022-07-27 04:20] VITALS: BP 124/76
[2022-07-27] MEDS: SODIUM CHLORIDE 0.9% INJ 10 ML SYR IV PRN (04:23)
[2022-07-27] MEDS: PIPERACILLIN/TAZOBACTAM SOD 4.5 GM in D5W MINI-BAG PLUS 50 ML IV SCH ×4 (04:24→22:19)
[2022-07-27] MEDS: HEPARIN SOD (PORCINE) 5000UNITS/ML 1ML VIAL/SYRINGE SC SCH ×3 (04:27→20:23)
[2022-07-27 05:02] LABS: HEMATOCRIT 30.1 % (42.0-52.0); HEMOGLOBIN 9.5 g/dl (13.5-17.5); MEAN CORPUSCULAR HEMOGLOBIN 27.2 pg (27.0-33.0); MEAN CORPUSCULAR HGB CONC 31.6 g/dl (32.0-36.5); MEAN CORPUSCULAR VOLUME 86.2 fl (80.0-96.0); PLATELET COUNT, AUTOMATED 161 10^3/uL (150-450); RED BLOOD COUNT 3.49 10^6/uL (4.30-6.10); WHITE BLOOD COUNT 7.9 10^3/uL (4.0-10.0)
[2022-07-27 05:23] LABS: ALBUMIN 2.3 G/DL (3.2-5.2); ALKALINE PHOSPHATASE 38 U/L (46-116); ALT/SGPT 16 U/L (7.0-40); AST/SGOT 10 U/L (<34); BILIRUBIN,TOTAL 0.3 MG/DL (0.3-1.2); BLOOD UREA NITROGEN 24 MG/DL (9-23); CALCIUM LEVEL 6.6 MG/DL (8.3-10.6); CARBON DIOXIDE LEVEL 18 MMOL/L (20-31); CHLORIDE LEVEL 119 MMOL/L (98-107); CREATININE FOR GFR 1.13 MG/DL (0.70-1.30); GLOMERULAR FILTRATION RATE > 60.0 (>49); GLUCOSE, FASTING 103 MG/DL (74-106); MAGNESIUM LEVEL 1.8 MG/DL (1.8-2.4); PHOSPHORUS LEVEL 2.7 MG/DL (2.4-5.1); POTASSIUM SERUM 3.8 MMOL/L (3.5-5.1); SODIUM LEVEL 145 MMOL/L (136-145); TOTAL PROTEIN 4.9 G/DL (5.7-8.2)
[2022-07-27 07:23] VITALS: BP 133/98
[2022-07-27] MEDS ORDERED: CALCIUM GLUCONATE 1,000 MG in D5W MINI-BAG PLUS 100 ML IV ONE (08:00)
[2022-07-27] MEDS: IPRATROPIUM 0.5MG/ALBUTEROL 2.5MG INH SOL UD 3ML (DUONEB) NEB SCH ×4 (08:17→19:03)
[2022-07-27] MEDS: AZITHROMYCIN INJ 500 MG, VIAL MATE ADAPTER 1 EACH in NS 250 ML IV SCH (09:19)
[2022-07-27] MEDS: PANTOPRAZOLE 40MG VIAL IV SCH (09:19)
[2022-07-27] MEDS: SODIUM CHLORIDE 0.9% INJ 10 ML SYR IV SCH (09:21)
[2022-07-27 11:14] VITALS: BP 128/93
[2022-07-27] MEDS: D5W/0.9% SODIUM CHLORIDE 1,000 ML IV SCH ×2 (11:24→20:23)
[2022-07-27 15:35] VITALS: BP 128/85
[2022-07-27] MEDS: methylPREDNISolone 40MG 1ML VIAL IV SCH (18:15)
[2022-07-27 20:00] VITALS: BP 130/78
[2022-07-27] MEDS: diphenhydrAMINE 50MG/ML VIAL IV PRN (21:08)
[2022-07-28] VITALS: BP 121/81
[2022-07-28 04:00] VITALS: BP 142/91
[2022-07-28] MEDS: PIPERACILLIN/TAZOBACTAM SOD 4.5 GM in D5W MINI-BAG PLUS 50 ML IV SCH ×4 (04:14→23:18)
[2022-07-28] MEDS: SODIUM CHLORIDE 0.9% INJ 10 ML SYR IV PRN (06:03)
[2022-07-28] MEDS: HEPARIN SOD (PORCINE) 5000UNITS/ML 1ML VIAL/SYRINGE SC SCH ×3 (06:03→21:14)
[2022-07-28] MEDS: D5W/0.9% SODIUM CHLORIDE 1,000 ML IV SCH (06:04)
[2022-07-28 06:22] LABS: HEMATOCRIT 29.7 % (42.0-52.0); HEMOGLOBIN 9.5 g/dl (13.5-17.5); MEAN CORPUSCULAR HEMOGLOBIN 27.5 pg (27.0-33.0); MEAN CORPUSCULAR VOLUME 86.1 fl (80.0-96.0); PLATELET COUNT, AUTOMATED 164 10^3/uL (150-450); RED BLOOD COUNT 3.45 10^6/uL (4.30-6.10); WHITE BLOOD COUNT 6.5 10^3/uL (4.0-10.0)
[2022-07-28 06:56] LABS: ALBUMIN 2.2 G/DL (3.2-5.2); ALKALINE PHOSPHATASE 37 U/L (46-116); ALT/SGPT 14 U/L (7.0-40); AST/SGOT 15 U/L (<34); BILIRUBIN,TOTAL 0.3 MG/DL (0.3-1.2); BLOOD UREA NITROGEN 17 MG/DL (9-23); CALCIUM LEVEL 6.9 MG/DL (8.3-10.6); CARBON DIOXIDE LEVEL 20 MMOL/L (20-31); CHLORIDE LEVEL 116 MMOL/L (98-107); CREATININE FOR GFR 1.12 MG/DL (0.70-1.30); GLOMERULAR FILTRATION RATE > 60.0 (>49); GLUCOSE, FASTING 130 MG/DL (74-106); POTASSIUM SERUM 3.7 MMOL/L (3.5-5.1); SODIUM LEVEL 145 MMOL/L (136-145); TOTAL PROTEIN 4.7 G/DL (5.7-8.2)
[2022-07-28 08:19] VITALS: BP 125/86
[2022-07-28] MEDS: IPRATROPIUM 0.5MG/ALBUTEROL 2.5MG INH SOL UD 3ML (DUONEB) NEB SCH ×4 (08:29→19:24)
[2022-07-28] MEDS ORDERED: POTASSIUM CHLORIDE 10MEQ SR TABLET PO SCH (09:00)
[2022-07-28] MEDS: PANTOPRAZOLE 40MG VIAL IV SCH (09:56)
[2022-07-28] MEDS: AZITHROMYCIN INJ 500 MG, VIAL MATE ADAPTER 1 EACH in NS 250 ML IV SCH (09:56)
[2022-07-28] MEDS: SODIUM CHLORIDE 0.9% INJ 10 ML SYR IV SCH (09:58)
[2022-07-28 11:46] VITALS: BP 134/84
[2022-07-28] MEDS ORDERED: CALCIUM GLUCONATE 1,000 MG in D5W MINI-BAG PLUS 100 ML IV ONE (12:00)
[2022-07-28 15:37] VITALS: BP 130/81
[2022-07-28 15:44] LABS: CHOLESTEROL RISK RATIO 5.92 (<5); HDL CHOLESTEROL 23.8 MG/DL (>40); LDL CHOLESTEROL 72.8 MG/DL (<100)
[2022-07-28 17:08] LABS: BODY FLUID CULTURE Not indicated. (.); LEGIONELLA ANTIGEN URINE Negative (Negative); ORGANISM ID Not indicated. (.); SPECIMEN SOURCE Urine (.); URINE STREP PNEUMONIAE ANTIGEN Positive (Negative)
[2022-07-28] MEDS: methylPREDNISolone 40MG 1ML VIAL IV SCH (17:52)
[2022-07-28] MEDS ORDERED: FAT EMULSION IV 250 ML IV ONE (18:00)
[2022-07-28] MEDS ORDERED: MULTIVITAMIN -ADULT INJECTION 10 ML, ZINC/COPPER/MANGANESE/SELENIUM 1 ML in AMINO AC/EL... IV SCH (18:00)
[2022-07-28 20:30] VITALS: BP 160/93
[2022-07-28] MEDS: diphenhydrAMINE 50MG/ML VIAL IV PRN (21:14)
[2022-07-29 01:03] VITALS: BP 145/87
[2022-07-29 04:00] VITALS: BP 138/84
[2022-07-29] MEDS: HEPARIN SOD (PORCINE) 5000UNITS/ML 1ML VIAL/SYRINGE SC SCH ×3 (05:36→22:00)
[2022-07-29] MEDS: PIPERACILLIN/TAZOBACTAM SOD 4.5 GM in D5W MINI-BAG PLUS 50 ML IV SCH ×4 (05:36→23:14)
[2022-07-29] MEDS: IPRATROPIUM 0.5MG/ALBUTEROL 2.5MG INH SOL UD 3ML (DUONEB) NEB SCH ×4 (07:20→20:15)
[2022-07-29 08:00] VITALS: BP 138/85
[2022-07-29] MEDS: SODIUM CHLORIDE 0.9% INJ 10 ML SYR IV SCH (09:00)
[2022-07-29] MEDS: AZITHROMYCIN INJ 500 MG, VIAL MATE ADAPTER 1 EACH in NS 250 ML IV SCH (09:30)
[2022-07-29] MEDS: PANTOPRAZOLE 40MG VIAL IV SCH (09:30)
[2022-07-29 09:42] LABS: HEMATOCRIT 33.5 % (42.0-52.0); HEMOGLOBIN 10.7 g/dl (13.5-17.5); MEAN CORPUSCULAR HEMOGLOBIN 27.4 pg (27.0-33.0); MEAN CORPUSCULAR HGB CONC 31.9 g/dl (32.0-36.5); MEAN CORPUSCULAR VOLUME 85.7 fl (80.0-96.0); PLATELET COUNT, AUTOMATED 190 10^3/uL (150-450); RED BLOOD COUNT 3.91 10^6/uL (4.30-6.10); WHITE BLOOD COUNT 7.4 10^3/uL (4.0-10.0)
[2022-07-29 10:07] LABS: ALBUMIN 2.4 G/DL (3.2-5.2); ALKALINE PHOSPHATASE 42 U/L (46-116); ALT/SGPT 16 U/L (7.0-40); AST/SGOT 16 U/L (<34); BILIRUBIN,TOTAL 0.4 MG/DL (0.3-1.2); BLOOD UREA NITROGEN 17 MG/DL (9-23); CARBON DIOXIDE LEVEL 22 MMOL/L (20-31); CHLORIDE LEVEL 110 MMOL/L (98-107); GLOMERULAR FILTRATION RATE > 60.0 (>49); GLUCOSE, FASTING 106 MG/DL (74-106); POTASSIUM SERUM 3.2 MMOL/L (3.5-5.1); SODIUM LEVEL 143 MMOL/L (136-145); TOTAL PROTEIN 5.2 G/DL (5.7-8.2)
[2022-07-29 12:33] VITALS: BP 142/93
[2022-07-29 16:00] VITALS: BP 131/69
[2022-07-29] MEDS ORDERED: methylPREDNISolone 40MG 1ML VIAL IV SCH (18:00)
[2022-07-29] MEDS ORDERED: AMINO AC/ELECTROLYTE/DEX/CALC 2,000 ML IV SCH (18:00)
[2022-07-29] MEDS ORDERED: FAT EMULSION IV 250 ML IV ONE (18:00)
[2022-07-29 20:00] VITALS: BP 127/83
[2022-07-29] MEDS: diphenhydrAMINE 50MG/ML VIAL IV PRN (20:32)
[2022-07-30] VITALS: BP 121/79
[2022-07-30 04:17] VITALS: BP 142/85
[2022-07-30] MEDS: PIPERACILLIN/TAZOBACTAM SOD 4.5 GM in D5W MINI-BAG PLUS 50 ML IV SCH (05:33)
[2022-07-30] MEDS: HEPARIN SOD (PORCINE) 5000UNITS/ML 1ML VIAL/SYRINGE SC SCH ×3 (05:34→20:33)
[2022-07-30] MEDS: IPRATROPIUM 0.5MG/ALBUTEROL 2.5MG INH SOL UD 3ML (DUONEB) NEB SCH ×4 (07:41→19:55)
[2022-07-30 08:00] VITALS: BP 118/60
[2022-07-30] MEDS ORDERED: KCL 10MEQ/100ML SWI (KRUN) 10 MEQ in IV 1 EA IV SCH ×2 (08:00→11:00)
[2022-07-30] MEDS: PANTOPRAZOLE 40MG VIAL IV SCH (08:50)
[2022-07-30] MEDS: SODIUM CHLORIDE 0.9% INJ 10 ML SYR IV SCH (09:00)
[2022-07-30] MEDS ORDERED: LEVOTHYROXINE 25MCG TABLET (0.025MG) PO SCH (09:00)
[2022-07-30] MEDS: OMEPRAZOLE 20MG CAP PO SCH (09:00)
[2022-07-30 09:32] LABS: HEMATOCRIT 35.6 % (42.0-52.0); HEMOGLOBIN 11.7 g/dl (13.5-17.5); MEAN CORPUSCULAR HEMOGLOBIN 27.6 pg (27.0-33.0); MEAN CORPUSCULAR HGB CONC 32.9 g/dl (32.0-36.5); PLATELET COUNT, AUTOMATED 208 10^3/uL (150-450); RED BLOOD COUNT 4.24 10^6/uL (4.30-6.10); WHITE BLOOD COUNT 8.3 10^3/uL (4.0-10.0)
[2022-07-30 09:52] LABS: BLOOD UREA NITROGEN 21 MG/DL (9-23); CALCIUM LEVEL 7.9 MG/DL (8.3-10.6); CARBON DIOXIDE LEVEL 22 MMOL/L (20-31); CHLORIDE LEVEL 109 MMOL/L (98-107); CREATININE FOR GFR 0.95 MG/DL (0.70-1.30); GLOMERULAR FILTRATION RATE > 60.0 (>49); GLUCOSE, FASTING 111 MG/DL (74-106); POTASSIUM SERUM 3.1 MMOL/L (3.5-5.1); SODIUM LEVEL 140 MMOL/L (136-145)
[2022-07-30] MEDS ORDERED: VARIBAR NECTAR 40% w/v 240ML SUSP BTL As Ordered ONE (10:38)
[2022-07-30] MEDS ORDERED: VARIBAR PUDDING 40% w/v 230ML TUBE As Ordered ONE (10:38)
[2022-07-30] MEDS ORDERED: E-Z-PAQUE 96% w/w SUSP 176GM BTL As Ordered ONE (10:38)
[2022-07-30] MEDS ORDERED: BARIUM SULFATE 700 MG TABLET (E-Z-DISK) As Ordered ONE (10:38)
[2022-07-30 12:00] VITALS: BP 136/80
[2022-07-30] MEDS ORDERED: LEVOTHYROXINE 100MCG (0.1MG) 5ML SDV PF (SOLUTION FORM) IV SCH (12:00)
[2022-07-30] MEDS: POTASSIUM CHLORIDE 10MEQ SR TABLET PO SCH ×2 (14:48→20:33)
[2022-07-30] MEDS: predniSONE 10MG TAB PO SCH (14:48)
[2022-07-30] MEDS: SIMVASTATIN 20 MG TAB PO SCH (14:49)
[2022-07-30] MEDS: lisinopriL 5 MG TAB PO SCH (14:49)
[2022-07-30 16:00] VITALS: BP 126/82
[2022-07-30 19:36] VITALS: BP 118/74
[2022-07-30] MEDS ORDERED: diphenhydrAMINE 25MG CAP PO ONE (23:00)
[2022-07-31] MEDS ORDERED: RAMELTEON 8 MG TAB (ROZEREM) PO PRN (00:25)
[2022-07-31 04:00] VITALS: BP 118/79
[2022-07-31] MEDS: HEPARIN SOD (PORCINE) 5000UNITS/ML 1ML VIAL/SYRINGE SC SCH ×2 (05:48→12:43)
[2022-07-31 07:37] VITALS: BP 130/74
[2022-07-31] MEDS ORDERED: LEVOTHYROXINE 25MCG TABLET (0.025MG) PO SCH (07:44)
[2022-07-31] MEDS: IPRATROPIUM 0.5MG/ALBUTEROL 2.5MG INH SOL UD 3ML (DUONEB) NEB SCH ×2 (07:54→11:31)
[2022-07-31] MEDS: predniSONE 10MG TAB PO SCH (08:09)
[2022-07-31 08:10] VITALS: BP 130/74
[2022-07-31] MEDS: SIMVASTATIN 20 MG TAB PO SCH (08:10)
[2022-07-31] MEDS: SODIUM CHLORIDE 0.9% INJ 10 ML SYR IV SCH (08:10)
[2022-07-31] MEDS: lisinopriL 5 MG TAB PO SCH (08:10)
[2022-07-31] MEDS: OMEPRAZOLE 20MG CAP PO SCH (08:10)
[2022-07-31 08:22] LABS: BLOOD UREA NITROGEN 24 MG/DL (9-23); CALCIUM LEVEL 8.1 MG/DL (8.3-10.6); CARBON DIOXIDE LEVEL 21 MMOL/L (20-31); CHLORIDE LEVEL 111 MMOL/L (98-107); CREATININE FOR GFR 1.01 MG/DL (0.70-1.30); GLOMERULAR FILTRATION RATE > 60.0 (>49); GLUCOSE, FASTING 100 MG/DL (74-106); POTASSIUM SERUM 4.8 MMOL/L (3.5-5.1); SODIUM LEVEL 140 MMOL/L (136-145)
[2022-07-31] MEDS ORDERED: PANTOPRAZOLE 40MG TAB (PROTONIX) PO SCH (09:00)
[2022-07-31] MEDS ORDERED: POTA20EL PO (10:14)
[2022-07-31] MEDS ORDERED: PRED10TA2 PO (10:14)
== END 2022-07-31 13:41 | disposition home or self-care (01) | DRG 871 ==
LOC: M ED 02:59 → M ED INP 08:01 → ENRESERV 09:14 → M ICU 11:05 → M PCU 07-26 14:50
PROVIDERS: ADMIT Internal Medicine; ATTEND Internal Medicine
PROC: B246ZZZ Ultrasonography of Right and Left Heart (ICD-10-PCS; principal; 2022-07-24)
DX: A41.9 Sepsis, unspecified organism (principal); J96.01 Acute respiratory failure with hypoxia; J69.0 Pneumonitis due to inhalation of food and vomit; R65.21 Severe sepsis with septic shock; J15.9 Unspecified bacterial pneumonia; E87.20 Acidosis, unspecified; N17.9 Acute kidney failure, unspecified; E87.1 Hypo-osmolality and hyponatremia; E87.0 Hyperosmolality and hypernatremia; J47.0 Bronchiectasis with acute lower respiratory infection; R13.10 Dysphagia, unspecified; R62.7 Adult failure to thrive; E87.6 Hypokalemia; I10 Essential (primary) hypertension; E83.42 Hypomagnesemia; E83.51 Hypocalcemia; E78.5 Hyperlipidemia, unspecified; E03.9 Hypothyroidism, unspecified; K21.9 Gastro-esophageal reflux disease without esophagitis; B34.8 Other viral infections of unspecified site; Z92.3 Personal history of irradiation; Z92.21 Personal history of antineoplastic chemotherapy; Z79.899 Other long term (current) drug therapy; Z20.822 Contact with and (suspected) exposure to COVID-19; Z88.1 Allergy status to other antibiotic agents

== ENCOUNTER → 2022-09-18 | Outpatient (CLI) | payer MEDICARE, BC, OTHER ==
[~2022-09-18] MED LIST changes: -CARD1TAB4 GT; +DOXA1TAB91 GT; +LIDO15SO PO; -LIDO15SO4 PO; +LISI5TAB11 PO; +MED REC COMMENT; +POTA20EL PO; +PRED10TA2 PO; +ZOLP5TAB PO
[2022-09-18 15:48] LABS: HEMATOCRIT 38.3 % (42.0-52.0); HEMOGLOBIN 11.8 g/dl (13.5-17.5); MEAN CORPUSCULAR HEMOGLOBIN 26.6 pg (27.0-33.0); MEAN CORPUSCULAR HGB CONC 30.8 g/dl (32.0-36.5); MEAN CORPUSCULAR VOLUME 86.5 fl (80.0-96.0); PLATELET COUNT, AUTOMATED 206 10^3/uL (150-450); RED BLOOD COUNT 4.43 10^6/uL (4.30-6.10); WHITE BLOOD COUNT 7.8 10^3/uL (4.0-10.0)
[2022-09-18 15:53] LABS: ALBUMIN 3.8 G/DL (3.2-5.2); BILIRUBIN,TOTAL 0.4 MG/DL (0.3-1.2); CALCIUM LEVEL 8.5 MG/DL (8.3-10.6); CHOLESTEROL RISK RATIO 4.57 (<5); CREATININE FOR GFR 1.32 MG/DL (0.70-1.30); GLOMERULAR FILTRATION RATE 58.5 (>49); HDL CHOLESTEROL 40.7 MG/DL (>40); LDL CHOLESTEROL 125.1 MG/DL (<100); NON-HDL-C 145.3 MG/DL; POTASSIUM SERUM 3.6 MMOL/L (3.5-5.1); PROSTATIC SPECIFIC AG MONITOR 0.77 NG/ML (< 4.00); THYROID STIMULATING HORMONE 13.888 uIU/ML (0.55-4.78)
== END ==
LOC: M RAD 13:46
PROVIDERS: ATTEND Family Medicine
DX: I10 Essential (primary) hypertension (principal)

== ENCOUNTER → 2022-11-07 | Outpatient (CLI) | payer MEDICARE, BC, OTHER | LOC: M ONCR 13:44 | PROVIDERS: ATTEND General Practice | DX: Z08 Encounter for follow-up examination after completed treatment for malignant neoplasm (principal); Z85.818 Personal history of malignant neoplasm of other sites of lip, oral cavity, and pharynx; Z92.21 Personal history of antineoplastic chemotherapy; Z92.3 Personal history of irradiation; M27.2 Inflammatory conditions of jaws; G89.29 Other chronic pain; Z87.01 Personal history of pneumonia (recurrent); S06.9X0D Unspecified intracranial injury without loss of consciousness, subsequent encounter; Z79.891 Long term (current) use of opiate analgesic; Z79.890 Hormone replacement therapy; Z79.899 Other long term (current) drug therapy; Z88.1 Allergy status to other antibiotic agents | CPT/HCPCS: 31575; G0463 ==

== ENCOUNTER → 2023-05-28 | Outpatient (CLI) | payer MEDICARE, BC, OTHER ==
[~2023-05-28] MED LIST changes: +CYAN-1 PO; -CYAN100050 PO; -DOXA2TAB3 PO; +DOXA2TAB61 PO
[2023-05-28 08:52] LABS: HEMATOCRIT 39.5 % (42.0-52.0); HEMOGLOBIN 12.6 g/dl (13.5-17.5); MEAN CORPUSCULAR HEMOGLOBIN 27.2 pg (27.0-33.0); MEAN CORPUSCULAR HGB CONC 31.9 g/dl (32.0-36.5); MEAN CORPUSCULAR VOLUME 85.1 fl (80.0-96.0); PLATELET COUNT, AUTOMATED 286 10^3/uL (150-450); RED BLOOD COUNT 4.64 10^6/uL (4.30-6.10); WHITE BLOOD COUNT 7.2 10^3/uL (4.0-10.0)
[2023-05-28 09:15] LABS: PROSTATIC SPECIFIC AG MONITOR 1.23 NG/ML (< 4.00)
[2023-05-28 09:18] LABS: ALBUMIN 3.5 G/DL (3.2-5.2); ALKALINE PHOSPHATASE 67 U/L (46-116); ALT/SGPT 20 U/L (7.0-40); AST/SGOT 21 U/L (<34); BILIRUBIN,TOTAL 0.2 MG/DL (0.3-1.2); BLOOD UREA NITROGEN 29 MG/DL (9-23); CALCIUM LEVEL 8.6 MG/DL (8.3-10.6); CARBON DIOXIDE LEVEL 27 MMOL/L (20-31); CHLORIDE LEVEL 111 MMOL/L (98-107); CHOLESTEROL LEVEL 224 MG/DL (<200); CHOLESTEROL RISK RATIO 4.79 (<5); CREATININE FOR GFR 1.17 MG/DL (0.70-1.30); GLOMERULAR FILTRATION RATE > 60.0 (>49); GLUCOSE, FASTING 94 MG/DL (74-106); HDL CHOLESTEROL 46.7 MG/DL (>40); LDL CHOLESTEROL 152.1 MG/DL (<100); NON-HDL-C 177.3 MG/DL; POTASSIUM SERUM 3.8 MMOL/L (3.5-5.1); SODIUM LEVEL 146 MMOL/L (136-145); TOTAL PROTEIN 6.9 G/DL (5.7-8.2); TRIGLYCERIDES LEVEL 126 MG/DL (<150)
[2023-05-28 09:20] LABS: TESTOSTERONE 506 NG/DL (241-827); THYROID STIMULATING HORMONE 25.573 uIU/ML (0.55-4.78)
[2023-05-28 09:52] LABS: HEMOGLOBIN A1c 5.5 % (4.0-6.0)
== END ==
LOC: M LAB 08:14
PROVIDERS: ATTEND Family Medicine
DX: I10 Essential (primary) hypertension (principal); R53.83 Other fatigue; E03.9 Hypothyroidism, unspecified; Z79.899 Other long term (current) drug therapy; Z12.5 Encounter for screening for malignant neoplasm of prostate

== ENCOUNTER → 2023-06-16 | Outpatient (CLI) | payer MEDICARE, BC, OTHER ==
[~2023-06-16] MED LIST changes: +VITA-10 PO
== END ==
LOC: M SOG 07:53 → EEVIPCON 07:53
PROVIDERS: ATTEND Physician Assistant
DX: Z47.89 Encounter for other orthopedic aftercare (principal); Z53.9 Procedure and treatment not carried out, unspecified reason

== ENCOUNTER 2023-07-08 14:22 | Inpatient (IN) | payer MEDICARE, BC, OTHER ==
[~2023-07-08] VITALS: Ht 175.3 cm; Wt 60.0 kg
[~2023-07-08 14:22] MED LIST changes: +FINA5TAB2 PO; +FLOM0.4C39 PO; +GABA-282 PO; +OMEP90SU GT
[2023-07-08] MEDS ORDERED: BISACODYL 10MG SUPP PR PRN (16:20)
[2023-07-08] MEDS ORDERED: MOM 30ML SUSPENSION UDC PO PRN (16:20)
[2023-07-08] MEDS ORDERED: DOCUSATE SODIUM 100MG CAPSULE PO PRN (16:20)
[2023-07-08] MEDS ORDERED: SALIVA SUBSTITUTE(MOUTHKOTE) BTL MT PRN (16:20)
[2023-07-08] MEDS ORDERED: methocarbamoL 500 MG TAB PEG PRN (16:20)
[2023-07-08] MEDS ORDERED: HOME MED LIST COMPLETE! XX SCH (17:40)
[2023-07-08] MEDS: NS 1,000 ML IV SCH (18:30)
[2023-07-08 21:29] VITALS: BP 120/73; TEMP 97.3; O2SAT 95
[2023-07-08] MEDS: zolPIDEM TARTRATE 5 MG TAB PEG SCH (21:59)
[2023-07-08] MEDS: MAGNESIUM OXIDE 400MG TAB (MAG-OX) PEG SCH (21:59)
[2023-07-08] MEDS: ACETAMINOPHEN 500 MG TAB PEG SCH (21:59)
[2023-07-08] MEDS: GABAPENTIN 300 MG CAP PEG SCH (21:59)
[2023-07-08] MEDS: HEPARIN SOD (PORCINE) 5000UNITS/ML 1ML VIAL/SYRINGE SC SCH (22:00)
[2023-07-08] MEDS: DICLOFENAC EPOLAMINE 1.3% PATCH TOP SCH (22:01)
[2023-07-09] VITALS (9 sets, daily range): BP systolic 96–112; BP diastolic 58–90; TEMP 97.3–97.7; O2SAT 95–98
[2023-07-09 05:08] LABS: BASO # 0.1 10^3/uL (0.0-0.2); BASO % 0.8 % (0.0-1.0); EOS # 0.1 10^3/uL (0.0-0.5); EOS % 1.6 % (0.0-3.0); HEMATOCRIT 31.2 % (42.0-52.0); HEMOGLOBIN 9.6 g/dl (13.5-17.5); LYMPH # 1.1 10^3/uL (1.5-5.0); LYMPH % 16.7 % (24.0-44.0); MEAN CORPUSCULAR HEMOGLOBIN 27.9 pg (27.0-33.0); MEAN CORPUSCULAR HGB CONC 30.8 g/dl (32.0-36.5); MEAN CORPUSCULAR VOLUME 90.7 fl (80.0-96.0); MONO # 0.6 10^3/uL (0.0-0.8); MONO % 9.8 % (2.0-8.0); NEUTROPHILS # 4.6 10^3/uL (1.5-8.5); NEUTROPHILS % 70.5 % (36.0-66.0); PLATELET COUNT, AUTOMATED 329 10^3/uL (150-450); RED BLOOD COUNT 3.44 10^6/uL (4.30-6.10); WHITE BLOOD COUNT 6.5 10^3/uL (4.0-10.0)
[2023-07-09] MEDS: HEPARIN SOD (PORCINE) 5000UNITS/ML 1ML VIAL/SYRINGE SC SCH ×3 (05:19→22:55)
[2023-07-09 05:32] LABS: BLOOD UREA NITROGEN 27 MG/DL (9-23); CALCIUM LEVEL 8.4 MG/DL (8.3-10.6); CARBON DIOXIDE LEVEL 30 MMOL/L (20-31); CHLORIDE LEVEL 105 MMOL/L (98-107); CREATININE FOR GFR 0.86 MG/DL (0.70-1.30); GLOMERULAR FILTRATION RATE > 60.0 (>49); GLUCOSE, FASTING 91 MG/DL (74-106); MAGNESIUM LEVEL 1.8 MG/DL (1.8-2.4); POTASSIUM SERUM 4.5 MMOL/L (3.5-5.1); SODIUM LEVEL 140 MMOL/L (136-145)
[2023-07-09] MEDS: DOXAZOSIN MESYLATE 1 MG TAB PEG SCH (09:00)
[2023-07-09] MEDS: MAGNESIUM OXIDE 400MG TAB (MAG-OX) PEG SCH ×3 (09:00→20:33)
[2023-07-09] MEDS ORDERED: TAMSULOSIN 0.4 MG CAP XX SCH (09:00)
[2023-07-09] MEDS: ACETAMINOPHEN 500 MG TAB PEG SCH ×3 (09:00→20:33)
[2023-07-09] MEDS: LIDOCAINE 5% (LIDODERM) PATCH TD SCH ×2 (09:00)
[2023-07-09] MEDS: GABAPENTIN 300 MG CAP PEG SCH ×3 (09:00→20:33)
[2023-07-09] MEDS: DICLOFENAC EPOLAMINE 1.3% PATCH TOP SCH ×2 (09:00→20:34)
[2023-07-09] MEDS: OMEPRAZOLE/SODIUM BICARB 20-840MG 10ML ORAL SYRINGE GT SCH (09:00)
[2023-07-09] MEDS ORDERED: FINASTERIDE 5MG TAB PEG SCH (09:00)
[2023-07-09] MEDS: NS 1,000 ML IV SCH (09:36)
[2023-07-09] MEDS: zolPIDEM TARTRATE 5 MG TAB PEG SCH (20:33)
[2023-07-10 03:00] VITALS: BP 97/68; TEMP 97.7; O2SAT 98
[2023-07-10] MEDS: HEPARIN SOD (PORCINE) 5000UNITS/ML 1ML VIAL/SYRINGE SC SCH ×3 (06:04→20:28)
[2023-07-10 06:45] LABS: BASO % 0.3 % (0.0-1.0); EOS % 0.3 % (0.0-3.0); HEMATOCRIT 28.7 % (42.0-52.0); LYMPH % 12.9 % (24.0-44.0); MEAN CORPUSCULAR HEMOGLOBIN 28.3 pg (27.0-33.0); MEAN CORPUSCULAR HGB CONC 31.4 g/dl (32.0-36.5); MEAN CORPUSCULAR VOLUME 90.3 fl (80.0-96.0); MONO # 0.7 10^3/uL (0.0-0.8); MONO % 8.9 % (2.0-8.0); NEUTROPHILS # 5.9 10^3/uL (1.5-8.5); NEUTROPHILS % 76.9 % (36.0-66.0); PLATELET COUNT, AUTOMATED 320 10^3/uL (150-450); RED BLOOD COUNT 3.18 10^6/uL (4.30-6.10); WHITE BLOOD COUNT 7.6 10^3/uL (4.0-10.0)
[2023-07-10 07:01] VITALS: BP 101/67; TEMP 97.7; O2SAT 96
[2023-07-10 07:19] LABS: BLOOD UREA NITROGEN 24 MG/DL (9-23); CALCIUM LEVEL 8.6 MG/DL (8.3-10.6); CARBON DIOXIDE LEVEL 27 MMOL/L (20-31); CHLORIDE LEVEL 108 MMOL/L (98-107); CREATININE FOR GFR 0.87 MG/DL (0.70-1.30); GLOMERULAR FILTRATION RATE > 60.0 (>49); GLUCOSE, FASTING 110 MG/DL (74-106); MAGNESIUM LEVEL 1.6 MG/DL (1.8-2.4); POTASSIUM SERUM 4.5 MMOL/L (3.5-5.1); SODIUM LEVEL 141 MMOL/L (136-145)
[2023-07-10] MEDS ORDERED: MAG SULF 1GM/100ML (MAG RUN) 1 GM in IV 1 EA IV ONE (08:00)
[2023-07-10] MEDS: MAGNESIUM OXIDE 400MG TAB (MAG-OX) PEG SCH ×3 (09:26→20:27)
[2023-07-10] MEDS: GABAPENTIN 300 MG CAP PEG SCH ×3 (09:26→20:27)
[2023-07-10] MEDS: ACETAMINOPHEN 500 MG TAB PEG SCH ×3 (09:27→20:27)
[2023-07-10] MEDS: DICLOFENAC EPOLAMINE 1.3% PATCH TOP SCH ×2 (09:28→20:27)
[2023-07-10] MEDS: LIDOCAINE 5% (LIDODERM) PATCH TD SCH ×2 (09:28→09:29)
[2023-07-10] MEDS: OMEPRAZOLE/SODIUM BICARB 20-840MG 10ML ORAL SYRINGE GT SCH (09:29)
[2023-07-10] MEDS: DOXAZOSIN MESYLATE 1 MG TAB PEG SCH (09:31)
[2023-07-10 10:10] VITALS: BP 101/69; TEMP 97.7; O2SAT 97
[2023-07-10 14:30] VITALS: BP 104/68; TEMP 97.7; O2SAT 98
[2023-07-10 20:10] VITALS: BP 104/69; TEMP 97.7; O2SAT 99
[2023-07-10] MEDS: zolPIDEM TARTRATE 5 MG TAB PEG SCH (20:28)
[2023-07-11] MEDS: HEPARIN SOD (PORCINE) 5000UNITS/ML 1ML VIAL/SYRINGE SC SCH ×3 (05:37→22:00)
[2023-07-11 06:00] VITALS: BP 100/60; TEMP 97.5; O2SAT 99
[2023-07-11 06:52] LABS: BASO % 0.4 % (0.0-1.0); EOS # 0.1 10^3/uL (0.0-0.5); EOS % 0.7 % (0.0-3.0); HEMATOCRIT 31.8 % (42.0-52.0); HEMOGLOBIN 9.7 g/dl (13.5-17.5); LYMPH # 0.9 10^3/uL (1.5-5.0); LYMPH % 10.5 % (24.0-44.0); MEAN CORPUSCULAR HEMOGLOBIN 27.6 pg (27.0-33.0); MEAN CORPUSCULAR HGB CONC 30.5 g/dl (32.0-36.5); MEAN CORPUSCULAR VOLUME 90.3 fl (80.0-96.0); MONO # 0.6 10^3/uL (0.0-0.8); MONO % 6.7 % (2.0-8.0); NEUTROPHILS # 6.7 10^3/uL (1.5-8.5); NEUTROPHILS % 81.2 % (36.0-66.0); PLATELET COUNT, AUTOMATED 310 10^3/uL (150-450); RED BLOOD COUNT 3.52 10^6/uL (4.30-6.10); WHITE BLOOD COUNT 8.3 10^3/uL (4.0-10.0)
[2023-07-11 07:24] LABS: BLOOD UREA NITROGEN 20 MG/DL (9-23); CARBON DIOXIDE LEVEL 29 MMOL/L (20-31); CHLORIDE LEVEL 107 MMOL/L (98-107); CREATININE FOR GFR 0.89 MG/DL (0.70-1.30); GLOMERULAR FILTRATION RATE > 60.0 (>49); GLUCOSE, FASTING 120 MG/DL (74-106); MAGNESIUM LEVEL 1.8 MG/DL (1.8-2.4); POTASSIUM SERUM 4.1 MMOL/L (3.5-5.1); SODIUM LEVEL 139 MMOL/L (136-145)
[2023-07-11] MEDS: DOXAZOSIN MESYLATE 1 MG TAB PEG SCH (08:12)
[2023-07-11] MEDS: GABAPENTIN 300 MG CAP PEG SCH ×3 (08:12→20:38)
[2023-07-11] MEDS: MAGNESIUM OXIDE 400MG TAB (MAG-OX) PEG SCH ×3 (08:12→20:39)
[2023-07-11] MEDS: ACETAMINOPHEN 500 MG TAB PEG SCH ×3 (08:13→20:38)
[2023-07-11] MEDS: LIDOCAINE 5% (LIDODERM) PATCH TD SCH ×2 (08:13→08:33)
[2023-07-11] MEDS: DICLOFENAC EPOLAMINE 1.3% PATCH TOP SCH ×2 (08:14→20:37)
[2023-07-11] MEDS: OMEPRAZOLE/SODIUM BICARB 20-840MG 10ML ORAL SYRINGE GT SCH (08:14)
[2023-07-11] MEDS ORDERED: DOXA1TAB91 PEG (12:46)
[2023-07-11] MEDS ORDERED: METH-1164 PEG ×2 (12:46→13:43)
[2023-07-11] MEDS ORDERED: MAGN400T2 PEG (13:43)
[2023-07-11] MEDS ORDERED: LIDO5TD TD (13:43)
[2023-07-11] MEDS ORDERED: COLA100C5 PO (13:43)
[2023-07-11 14:10] VITALS: BP 97/65; TEMP 96.6; O2SAT 99
[2023-07-11] MEDS: zolPIDEM TARTRATE 5 MG TAB PEG SCH (20:39)
[2023-07-11 21:25] VITALS: BP 102/65; TEMP 97.7; O2SAT 98
[2023-07-12] MEDS: HEPARIN SOD (PORCINE) 5000UNITS/ML 1ML VIAL/SYRINGE SC SCH (05:27)
[2023-07-12 05:47] VITALS: BP 96/64; TEMP 97.7; O2SAT 98
[2023-07-12] MEDS: DICLOFENAC EPOLAMINE 1.3% PATCH TOP SCH ×3 (08:37→09:19)
[2023-07-12 09:00] VITALS: BP 96/64
[2023-07-12] MEDS: DOXAZOSIN MESYLATE 1 MG TAB PEG SCH ×2 (09:00→09:18)
[2023-07-12] MEDS: LIDOCAINE 5% (LIDODERM) PATCH TD SCH ×2 (09:00)
[2023-07-12] MEDS: GABAPENTIN 300 MG CAP PEG SCH (09:18)
[2023-07-12] MEDS: OMEPRAZOLE/SODIUM BICARB 20-840MG 10ML ORAL SYRINGE GT SCH (09:19)
[2023-07-12] MEDS: ACETAMINOPHEN 500 MG TAB PEG SCH (09:19)
[2023-07-12] MEDS: MAGNESIUM OXIDE 400MG TAB (MAG-OX) PEG SCH (09:19)
== END 2023-07-12 10:50 | disposition home health service (06) | DRG 713 ==
LOC: M MS5PR 16:40
PROVIDERS: ADMIT Internal Medicine; ATTEND Internal Medicine
PROC: 0VT08ZZ Resection of Prostate, Via Natural or Artificial Opening Endoscopic (ICD-10-PCS; principal; 2023-07-09)
DX: N40.1 Benign prostatic hyperplasia with lower urinary tract symptoms (principal); N13.8 Other obstructive and reflux uropathy; I10 Essential (primary) hypertension; E78.5 Hyperlipidemia, unspecified; E03.9 Hypothyroidism, unspecified; E83.42 Hypomagnesemia; M25.552 Pain in left hip; K21.9 Gastro-esophageal reflux disease without esophagitis; R33.9 Retention of urine, unspecified; R13.12 Dysphagia, oropharyngeal phase; D64.9 Anemia, unspecified; G47.00 Insomnia, unspecified; Z79.899 Other long term (current) drug therapy; Z88.2 Allergy status to sulfonamides; Z85.818 Personal history of malignant neoplasm of other sites of lip, oral cavity, and pharynx; Z87.820 Personal history of traumatic brain injury; Z96.642 Presence of left artificial hip joint; Z92.3 Personal history of irradiation; Z92.21 Personal history of antineoplastic chemotherapy; Z93.1 Gastrostomy status

== ENCOUNTER 2023-07-14 12:27 | Inpatient (IN) | payer MEDICARE, BC, OTHER ==
[~2023-07-14] VITALS: Ht 177.8 cm; Wt 62.0 kg
[~2023-07-14 12:27] MED LIST changes: +COLA100C5 PO; +DOXA1TAB91 PEG; +LIDO5TD TD; +MAGN400T2 PEG; +METH-1164 PEG
[2023-07-14] MEDS ORDERED: ACETAMINOPHEN TAB 650MG DOSE (2X325MG) PO ONE (15:00)
[2023-07-14 16:12] LABS: BASO # 0.1 10^3/uL (0.0-0.2); BASO % 0.7 % (0.0-1.0); EOS # 0.1 10^3/uL (0.0-0.5); EOS % 0.9 % (0.0-3.0); HEMOGLOBIN 11.7 g/dl (13.5-17.5); LYMPH # 1.1 10^3/uL (1.5-5.0); LYMPH % 12.7 % (24.0-44.0); MEAN CORPUSCULAR HEMOGLOBIN 28.3 pg (27.0-33.0); MEAN CORPUSCULAR HGB CONC 31.6 g/dl (32.0-36.5); MEAN CORPUSCULAR VOLUME 89.6 fl (80.0-96.0); MONO # 0.7 10^3/uL (0.0-0.8); MONO % 7.3 % (2.0-8.0); NEUTROPHILS % 77.8 % (36.0-66.0); PLATELET COUNT, AUTOMATED 308 10^3/uL (150-450); RED BLOOD COUNT 4.13 10^6/uL (4.30-6.10)
[2023-07-14 16:25] LABS: INR 1.08; PROTHROMBIN TIME 13.7 SECONDS (12.5-14.5)
[2023-07-14 16:26] LABS: PARTIAL THROMBOPLASTIN TIME 31.7 SECONDS (24.8-34.2)
[2023-07-14 16:43] LABS: BLOOD UREA NITROGEN 33 MG/DL (9-23); CARBON DIOXIDE LEVEL 28 MMOL/L (20-31); CHLORIDE LEVEL 100 MMOL/L (98-107); CREATININE FOR GFR 0.89 MG/DL (0.70-1.30); GLOMERULAR FILTRATION RATE > 60.0 (>49); GLUCOSE, FASTING 96 MG/DL (74-106); POTASSIUM SERUM 4.2 MMOL/L (3.5-5.1); SODIUM LEVEL 138 MMOL/L (136-145)
[2023-07-14 16:48] LABS: RSV AMPLIFICATION NEGATIVE (NEGATIVE)
[2023-07-14] MEDS ORDERED: MED REC IN PROGRESS XX SCH (18:25)
[2023-07-14] MEDS ORDERED: HOME MED LIST COMPLETE! XX SCH (18:45)
[2023-07-14] MEDS ORDERED: MOM 30ML SUSPENSION UDC PEG PRN (19:00)
[2023-07-14] MEDS ORDERED: MAALOX 30 ML SUSP *UDC PEG PRN (19:00)
[2023-07-14] MEDS: NS 1,000 ML IV SCH (20:31)
[2023-07-14] MEDS: GABAPENTIN 300 MG CAP PEG SCH (20:33)
[2023-07-14] MEDS: DOCUSATE SODIUM 100MG CAPSULE PO SCH ×2 (20:34→21:00)
[2023-07-14] MEDS: MAGNESIUM OXIDE 400MG TAB (MAG-OX) PEG SCH (20:34)
[2023-07-14] MEDS: HEPARIN SOD (PORCINE) 5000UNITS/ML 1ML VIAL/SYRINGE SC SCH (20:35)
[2023-07-14 20:52] LABS: ALBUMIN 3.2 G/DL (3.2-5.2); ALKALINE PHOSPHATASE 122 U/L (46-116); ALT/SGPT 20 U/L (7.0-40); AST/SGOT 24 U/L (<34); BILIRUBIN,TOTAL 0.5 MG/DL (0.3-1.2); BLOOD UREA NITROGEN 35 MG/DL (9-23); CALCIUM LEVEL 9.5 MG/DL (8.3-10.6); CARBON DIOXIDE LEVEL 29 MMOL/L (20-31); CHLORIDE LEVEL 103 MMOL/L (98-107); CREATININE FOR GFR 0.96 MG/DL (0.70-1.30); GLOMERULAR FILTRATION RATE > 60.0 (>49); GLUCOSE, FASTING 104 MG/DL (74-106); POTASSIUM SERUM 4.5 MMOL/L (3.5-5.1); SODIUM LEVEL 138 MMOL/L (136-145); TOTAL PROTEIN 6.7 G/DL (5.7-8.2)
[2023-07-14 22:25] VITALS: BP 110/56; TEMP 97.9; O2SAT 98
[2023-07-14] MEDS: zolPIDEM TARTRATE 5 MG TAB PO SCH (22:58)
[2023-07-14] MEDS: ACETAMINOPHEN 325MG/10.15ML UDC PO PRN (22:58)
[2023-07-14] MEDS: methocarbamoL 500 MG TAB PEG PRN (23:33)
[2023-07-15] MEDS: NS 1,000 ML IV SCH (04:59)
[2023-07-15 06:00] VITALS: BP 105/57; TEMP 97.9; O2SAT 98
[2023-07-15 06:12] LABS: HEMATOCRIT 31.9 % (42.0-52.0); HEMOGLOBIN 9.9 g/dl (13.5-17.5); MEAN CORPUSCULAR HEMOGLOBIN 27.8 pg (27.0-33.0); MEAN CORPUSCULAR VOLUME 89.6 fl (80.0-96.0); PLATELET COUNT, AUTOMATED 250 10^3/uL (150-450); RED BLOOD COUNT 3.56 10^6/uL (4.30-6.10); WHITE BLOOD COUNT 5.7 10^3/uL (4.0-10.0)
[2023-07-15 06:42] LABS: BLOOD UREA NITROGEN 30 MG/DL (9-23); CARBON DIOXIDE LEVEL 27 MMOL/L (20-31); CHLORIDE LEVEL 105 MMOL/L (98-107); CREATININE FOR GFR 0.88 MG/DL (0.70-1.30); GLOMERULAR FILTRATION RATE > 60.0 (>49); GLUCOSE, FASTING 104 MG/DL (74-106); MAGNESIUM LEVEL 1.8 MG/DL (1.8-2.4); SODIUM LEVEL 138 MMOL/L (136-145)
[2023-07-15] MEDS: DOCUSATE SOD LIQ 100MG/10ML UDC PO SCH ×2 (09:37→20:08)
[2023-07-15] MEDS: LIDOCAINE 5% (LIDODERM) PATCH TD SCH (09:37)
[2023-07-15] MEDS: OMEPRAZOLE/SODIUM BICARB 20-840MG 10ML ORAL SYRINGE GT SCH (09:37)
[2023-07-15] MEDS: MAGNESIUM OXIDE 400MG TAB (MAG-OX) PEG SCH ×3 (09:38→20:08)
[2023-07-15] MEDS: ACETAMINOPHEN 325MG/10.15ML UDC PO PRN (09:38)
[2023-07-15] MEDS: GABAPENTIN 300 MG CAP PEG SCH ×3 (09:38→20:08)
[2023-07-15] MEDS: DOXAZOSIN MESYLATE 1 MG TAB PEG SCH (09:40)
[2023-07-15] MEDS: HEPARIN SOD (PORCINE) 5000UNITS/ML 1ML VIAL/SYRINGE SC SCH ×2 (09:41→20:08)
[2023-07-15] MEDS: methocarbamoL 500 MG TAB PEG PRN (11:43)
[2023-07-15] MEDS: zolPIDEM TARTRATE 5 MG TAB PO SCH (20:08)
[2023-07-15 22:00] VITALS: BP 101/70; TEMP 97.9; O2SAT 97
[2023-07-16 07:37] LABS: HEMATOCRIT 31.7 % (42.0-52.0); HEMOGLOBIN 9.8 g/dl (13.5-17.5); MEAN CORPUSCULAR HEMOGLOBIN 27.5 pg (27.0-33.0); MEAN CORPUSCULAR HGB CONC 30.9 g/dl (32.0-36.5); PLATELET COUNT, AUTOMATED 213 10^3/uL (150-450); RED BLOOD COUNT 3.56 10^6/uL (4.30-6.10)
[2023-07-16 08:05] LABS: BLOOD UREA NITROGEN 21 MG/DL (9-23); CALCIUM LEVEL 8.6 MG/DL (8.3-10.6); CARBON DIOXIDE LEVEL 28 MMOL/L (20-31); CHLORIDE LEVEL 107 MMOL/L (98-107); CREATININE FOR GFR 0.82 MG/DL (0.70-1.30); GLOMERULAR FILTRATION RATE > 60.0 (>49); GLUCOSE, FASTING 137 MG/DL (74-106); MAGNESIUM LEVEL 1.6 MG/DL (1.8-2.4); POTASSIUM SERUM 3.9 MMOL/L (3.5-5.1); SODIUM LEVEL 140 MMOL/L (136-145)
[2023-07-16 08:30] VITALS: BP 112/64
[2023-07-16] MEDS: GABAPENTIN 300 MG CAP PEG SCH ×3 (08:43→19:51)
[2023-07-16] MEDS: MAGNESIUM OXIDE 400MG TAB (MAG-OX) PEG SCH ×3 (08:43→19:51)
[2023-07-16] MEDS: LIDOCAINE 5% (LIDODERM) PATCH TD SCH (08:43)
[2023-07-16] MEDS: methocarbamoL 500 MG TAB PEG PRN (08:43)
[2023-07-16] MEDS: OMEPRAZOLE/SODIUM BICARB 20-840MG 10ML ORAL SYRINGE GT SCH (08:44)
[2023-07-16] MEDS: HEPARIN SOD (PORCINE) 5000UNITS/ML 1ML VIAL/SYRINGE SC SCH ×2 (08:44→19:52)
[2023-07-16] MEDS: DOCUSATE SOD LIQ 100MG/10ML UDC PO SCH ×2 (08:44→19:51)
[2023-07-16] MEDS: DOXAZOSIN MESYLATE 1 MG TAB PEG SCH (09:00)
[2023-07-16 11:15] VITALS: TEMP 97.6
[2023-07-16 13:45] VITALS: BP 116/70; TEMP 97.3
[2023-07-16] MEDS: zolPIDEM TARTRATE 5 MG TAB PO SCH (19:52)
[2023-07-16] MEDS: ACETAMINOPHEN 325MG/10.15ML UDC PO PRN (20:01)
[2023-07-17 06:00] VITALS: BP 110/60; TEMP 98.1; O2SAT 99
[2023-07-17] MEDS: ACETAMINOPHEN 325MG/10.15ML UDC PO PRN (08:40)
[2023-07-17] MEDS: LIDOCAINE 5% (LIDODERM) PATCH TD SCH ×2 (08:41→09:09)
[2023-07-17] MEDS: MAGNESIUM OXIDE 400MG TAB (MAG-OX) PEG SCH (08:41)
[2023-07-17] MEDS: DOXAZOSIN MESYLATE 1 MG TAB PEG SCH ×2 (08:41→08:58)
[2023-07-17] MEDS: OMEPRAZOLE/SODIUM BICARB 20-840MG 10ML ORAL SYRINGE GT SCH (08:41)
[2023-07-17] MEDS: GABAPENTIN 300 MG CAP PEG SCH (08:42)
[2023-07-17] MEDS: HEPARIN SOD (PORCINE) 5000UNITS/ML 1ML VIAL/SYRINGE SC SCH (08:42)
[2023-07-17] MEDS: DOCUSATE SOD LIQ 100MG/10ML UDC PO SCH (08:42)
[2023-07-17 08:58] VITALS: BP 95/65
[2023-07-17] MEDS ORDERED: GABA250S6 PEG (12:58)
[2023-07-17] MEDS ORDERED: DOCU5LIQ PEG (12:58)
[2023-07-17] MEDS ORDERED: MAGN1POW PEG (12:58)
== END 2023-07-17 13:46 | disposition home health service (06) | DRG 556 ==
LOC: M ED 12:27 → EDBD 12:27 → M ED INP 18:59 → M MSPAV 22:28
PROVIDERS: ADMIT Family Medicine; ATTEND Student in an Organized Health Care Education/Training Program
DX: M25.551 Pain in right hip (principal); I10 Essential (primary) hypertension; E78.5 Hyperlipidemia, unspecified; E03.9 Hypothyroidism, unspecified; K21.9 Gastro-esophageal reflux disease without esophagitis; D63.8 Anemia in other chronic diseases classified elsewhere; G47.00 Insomnia, unspecified; N40.0 Benign prostatic hyperplasia without lower urinary tract symptoms; R13.12 Dysphagia, oropharyngeal phase; R62.7 Adult failure to thrive; Z96.642 Presence of left artificial hip joint; Z93.1 Gastrostomy status; Z92.3 Personal history of irradiation; Z92.21 Personal history of antineoplastic chemotherapy; Z87.820 Personal history of traumatic brain injury; Z85.818 Personal history of malignant neoplasm of other sites of lip, oral cavity, and pharynx; Z79.899 Other long term (current) drug therapy; Z88.1 Allergy status to other antibiotic agents; Z20.822 Contact with and (suspected) exposure to COVID-19

== ENCOUNTER → 2023-07-31 | Outpatient (CLI) | payer MEDICARE, BC, OTHER ==
[~2023-07-31] MED LIST changes: +DOCU5LIQ PEG; +GABA250S6 PEG; +MAGN1POW PEG; -POTA20EL PO; +POTA20LI16 PO
== END ==
LOC: M ONCR 13:02
PROVIDERS: ATTEND General Practice
DX: C09.0 Malignant neoplasm of tonsillar fossa (principal); R13.10 Dysphagia, unspecified; R29.6 Repeated falls; Z71.2 Person consulting for explanation of examination or test findings; Z79.899 Other long term (current) drug therapy; Z88.1 Allergy status to other antibiotic agents; Z92.21 Personal history of antineoplastic chemotherapy; Z92.3 Personal history of irradiation; Z93.1 Gastrostomy status
CPT/HCPCS: 31575; G0463